=== PATIENT | female | born 1955 | race African-American/Black ===

== ENCOUNTER → 2016-07-10 | Outpatient (CLI) | payer MEDICAID | LOC: RAD 09:33 | PROVIDERS: ATTEND Podiatrist Foot & Ankle Surgery | DX: M25.871 Other specified joint disorders, right ankle and foot (principal) ==

== ENCOUNTER 2016-10-11 18:22 | Emergency (ER) | payer MEDICAID ==
[2016-10-11] MEDS ORDERED: LIDOCAINE 5% (700 MG) TRANSDERMAL ADH..PATCH TP ONE (18:40)
[2016-10-11 18:57] LABS: APPEARANCE,URINE CLEAR; BILIRUBIN,URINE NEGATIVE (NEGATIVE); GLUCOSE, URINE NEGATIVE (NEGATIVE); KETONES,URINE NEGATIVE (NEGATIVE); LEUKOCYTE ESTERASE,URINE NEGATIVE (NEGATIVE); NITRITE,URINE NEGATIVE (NEGATIVE); PROTEIN,URINE NEGATIVE (NEGATIVE); URINE SPECIFIC GRAVITY 1.008; UROBILINOGEN,URINE NEGATIVE mg/dL (<2.0)
[2016-10-11 19:27] VITALS: BP 152/93
--- NOTE | 2016-10-11 19:55 | ER Document Report ---
ED General - General Chief Complaint: Urinary Frequency Stated Complaint: URINARY ISSUE TRAVEL OUTSIDE OF THE [place] IN LAST 30 DAYS: No - HPI Patient complains to provider of: right elbow pain dysuria Notes: Patient coming in for evaluation of right elbow pain and dysuria. Patient states dysuria for last few days right elbow pain ongoing for greater than a month. Patient states no relief of either symptom with ibuprofen. Patient denies fevers chills nausea vomiting diarrhea. 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 - Related Data Allergies/Adverse Reactions: Penicillins Allergy (Mild, Verified 10/11/16 18:29) rash Past Medical History - Social History Smoking Status: Never Smoker Frequency of alcohol use: Occasional Drug Abuse: None Family History: Hypertension Patient has suicidal ideation: No Patient has homicidal ideation: No - Past Medical History Cardiac Medical History: Reports: Hx Hypertension - medicated Denies: Hx Heart Attack Pulmonary Medical History: Denies: Hx Asthma Neurological Medical History: Reports: Hx Migraine. Denies: Hx Seizures Renal/ Medical History: Denies: Hx Kidney Stones, Hx Peritoneal Dialysis GI Medical History: Denies: Hx Hiatal Hernia, Hx Ulcer Musculoskeltal Medical History: Reports Hx Musculoskeletal Deformity, Reports Hx Musculoskeletal Trauma Psychiatric Medical History: Reports: Hx Depression Past Surgical History: Reports: Hx Cholecystectomy, Hx Kidney (Renal Surgery) - Kidney stone removal with hernia repair at same time, Hx Orthopedic Surgery - Foot surgery to right great toe. Denies: Hx Hysterectomy, Hx Mastectomy, Hx Open Heart Surgery - Immunizations Hx Diphtheria, Pertussis, Tetanus Vaccination: No Review of Systems - Review of Systems Constitutional: No symptoms reported EENT: No symptoms reported Cardiovascular: No symptoms reported Respiratory: No symptoms reported Gastrointestinal: No symptoms reported Genitourinary: Dysuria Female Genitourinary: No symptoms reported Musculoskeletal: Other - Right elbow pain Skin: No symptoms reported Hematologic/Lymphatic: No symptoms reported Neurological/Psychological: No symptoms reported Physical Exam - Vital signs Vitals: Temp Pulse Resp BP Pulse Ox 97.5 F 73 20 150/88 H 98 10/11/16 18:26 10/11/16 18:26 10/11/16 18:26 10/11/16 18:26 10/11/16 18:26 Interpretation: Normal - General General appearance: Appears well, Alert - HEENT Head: Normocephalic, Atraumatic Eyes: Normal Pupils: PERRL - Respiratory Respiratory status: No respiratory distress Chest status: Nontender Breath sounds: Normal Chest palpation: Normal - Cardiovascular Rhythm: Regular Heart sounds: Normal auscultation Murmur: No - Abdominal Inspection: Normal Distension: No distension Bowel sounds: Normal Tenderness: Nontender Organomegaly: No organomegaly - Back Back: Normal, Nontender - Extremities General upper extremity: Normal inspection, Tender - There palpation of the lateral condyle consistent with lateral epicondylitis or tennis elbow, Normal color, Normal ROM, Normal temperature General lower extremity: Normal inspection, Nontender, Normal color, Normal ROM , Normal temperature, Normal weight bearing. No: Kvng's sign - Neurological Neuro grossly intact: Yes Cognition: Normal Orientation: AAOx4 Raquel Coma Scale Eye Opening: Spontaneous [place] Coma Scale Verbal: Oriented [place] Coma Scale Motor: Obeys Commands Raquel Coma Scale Total: 15 Speech: Normal Motor strength normal: LUE, RUE, LLE, RLE Sensory: Normal - Psychological Associated symptoms: Normal affect, Normal mood - Skin Skin Temperature: Warm Skin Moisture: Dry Skin Color: Normal Course - Re-evaluation Re-evalutation: 10/11/16 20:50 Patient examination is consistent with lateral epicondylitis or tennis elbow. Patient was educated about the use of ice massage antifungal medications. Patient's pain was treated with a Lidoderm patch. Patient's urinalysis does not show any signs of infection. Patient will be given Pyridium for her symptoms nearly will be sent for culture. Patient was encouraged follow-up primary care physician. - Vital Signs Vital signs: Temp Pulse Resp BP Pulse Ox 97.8 F 98 18 152/93 H 95 10/11/16 19:26 10/11/16 19:26 10/11/16 19:26 10/11/16 19:26 10/11/16 19:26 - Laboratory Laboratory results interpreted by me: 10/11/16 18:40 Urine Blood SMALL H Discharge - Discharge Clinical Impression: Urinary frequency, Tendinitis of right elbow Condition: Good Disposition: HOME, SELF-CARE Instructions: Tennis Elbow (Lateral Epicondylitis) ([facility]), Ice Massage ([facility]) Additional Instructions: Your urinalysis does not show any signs of infection today. We will see new urine for a culture the culture results will be available in the next 48 hours. Please make sure we have good content information so that we may call you if you may need an antibiotic but at this time there is no need for any antibiotics. Your elbow pain is consistent with tennis elbow or tendinitis in your elbow. Please continue to take Motrin and Tylenol for pain control you may use warm compresses and ice packs. Prescriptions: Phenazopyridine HCl [Pyridium 100 Mg Tablet] 100 mg PO TID #14 tablet Forms: Return to Work Referrals: ANNALEE MENDEZ MD [Primary Care Provider] - Follow up as needed
== END 2016-10-11 19:56 | disposition home or self-care (01) ==
LOC: ER 18:22
DX: R35.0 Frequency of micturition (principal); M77.9 Enthesopathy, unspecified; R39.198 Other difficulties with micturition; M25.521 Pain in right elbow; R30.0 Dysuria
CPT/HCPCS: 99283; 87086; 81001; J3490

== ENCOUNTER 2017-01-13 12:22 | Emergency (ER) | payer MEDICAID ==
--- NOTE | 2017-01-13 12:59 | ER Document Report ---
ED Medical Screen (RME) - General Chief Complaint: Pain With Urination Stated Complaint: VAGINAL PAIN Time Seen by Provider: 01/13/17 12:54 Mode of Arrival: Ambulatory Information source: Patient, ON LICENSE OF [facility] Records TRAVEL OUTSIDE OF THE [place] IN LAST 30 DAYS: No - HPI Patient complains to provider of: dysuria, urine frequency Onset: Yesterday Onset/Duration: Gradual, Constant Quality of pain: Burning Recently seen / treated by doctor: Yes Notes: 01/13/17 12:58 Patient is a 61-year-old female who has frequent urinary tract infections. Patient presents with several days of dysuria and urinary frequency. Denies fevers, chills, back pain. She has used [id number] Pyridium without improvement. Patient states she did not want to wait all day at her doctor's office so presents to the emergency department for evaluation. Patient is also requesting pain medication. - Related Data Allergies/Adverse Reactions: Penicillins Allergy (Mild, Verified 01/13/17 12:42) rash Past Medical History - General Information source: Patient, ON LICENSE OF [facility] Records - Social History Chew tobacco use (# tins/day): No Frequency of alcohol use: Occasional Drug Abuse: None - Past Medical History Cardiac Medical History: Reports: Hx Hypertension - medicated Denies: Hx Heart Attack Pulmonary Medical History: Denies: Hx Asthma Neurological Medical History: Reports: Hx Migraine. Denies: Hx Seizures Renal/ Medical History: Denies: Hx Kidney Stones, Hx Peritoneal Dialysis GI Medical History: Denies: Hx Hiatal Hernia, Hx Ulcer Musculoskeltal Medical History: Reports Hx Musculoskeletal Deformity, Reports Hx Musculoskeletal Trauma Psychiatric Medical History: Reports: Hx Depression Past Surgical History: Reports: Hx Cholecystectomy, Hx Kidney (Renal Surgery) - Kidney stone removal with hernia repair at same time, Hx Orthopedic Surgery - Foot surgery to right great toe. Denies: Hx Hysterectomy, Hx Mastectomy, Hx Open Heart Surgery - Immunizations Hx Diphtheria, Pertussis, Tetanus Vaccination: No Review of Systems - Review of Systems Genitourinary: Dysuria, Frequency -: Yes All other systems reviewed and negative Physical Exam - Vital signs Vitals: Temp Pulse Resp BP Pulse Ox 98 F 62 14 162/95 H 98 01/13/17 12:29 01/13/17 12:29 01/13/17 12:29 01/13/17 12:29 01/13/17 12:29 Interpretation: Normal - General General appearance: Appears well, Alert - HEENT Head: Normocephalic, Atraumatic Eyes: Normal Pupils: PERRL - Respiratory Respiratory status: No respiratory distress Chest status: Nontender Breath sounds: Normal Chest palpation: Normal - Cardiovascular Rhythm: Regular Heart sounds: Normal auscultation Murmur: No - Abdominal Inspection: Normal Distension: No distension Bowel sounds: Normal Tenderness: Nontender Organomegaly: No organomegaly - Back Back: Normal, Nontender - Extremities General upper extremity: Normal inspection, Nontender, Normal color, Normal ROM , Normal temperature General lower extremity: Normal inspection, Nontender, Normal color, Normal ROM , Normal temperature, Normal weight bearing. No: Kvng's sign - Neurological Neuro grossly intact: Yes Cognition: Normal Orientation: AAOx4 [place] Coma Scale Eye Opening: Spontaneous Raquel Coma Scale Verbal: Oriented Raquel Coma Scale Motor: Obeys Commands Raquel Coma Scale Total: 15 Speech: Normal Motor strength normal: LUE, RUE, LLE, RLE Sensory: Normal - Psychological Associated symptoms: Normal affect, Normal mood - Skin Skin Temperature: Warm Skin Moisture: Dry Skin Color: Normal Course - Re-evaluation Re-evalutation: 01/13/17 13:31 Urine is consistent with UTI. Nothing to indicate pyelonephritis. Will discharge with Bactrim pending urine culture results. - Vital Signs Vital signs: Temp Pulse Resp BP Pulse Ox 98 F 62 14 162/95 H 98 01/13/17 12:29 01/13/17 12:29 01/13/17 12:29 01/13/17 12:29 01/13/17 12:29 - Laboratory Laboratory results interpreted by me: 01/13/17 12:35 Urine Protein 100 H Urine Blood LARGE H Urine Nitrite POSITIVE H Urine Urobilinogen 4.0 H Ur Leukocyte Esterase SMALL H Doctor's Discharge - Discharge Clinical Impression: UTI (urinary tract infection) Condition: Good Disposition: HOME, SELF-CARE Instructions: Urinary Tract Infection ([facility]) Additional Instructions: Follow-up with your primary care doctor. Increase fluids. Return to the emergency department if worse or for any other problems. Prescriptions: Sulfamethoxazole/Trimethoprim [Bactrim Ds Tablet] 1 each PO BID #14 tablet Tramadol HCl 50 mg PO QID PRN #20 tablet PRN Reason: Mild Pain
[2017-01-13 13:22] LABS: APPEARANCE,URINE CLOUDY; BILIRUBIN,URINE NEGATIVE (NEGATIVE); GLUCOSE, URINE NEGATIVE (NEGATIVE); KETONES,URINE NEGATIVE (NEGATIVE); LEUKOCYTE ESTERASE,URINE SMALL (NEGATIVE); NITRITE,URINE POSITIVE (NEGATIVE); PROTEIN,URINE 100 mg/dL (NEGATIVE); URINE SPECIFIC GRAVITY 1.027
[2017-01-13] MEDS ORDERED: SULFAMETHOXAZOLE/TRIMETHOPRIM 800-160 MG TABLET PO ONE (13:23)
[2017-01-13 13:44] VITALS: BP 154/102
== END 2017-01-13 13:34 | disposition home or self-care (01) ==
LOC: ER 12:22
DX: N39.0 Urinary tract infection, site not specified (principal); R10.2 Pelvic and perineal pain; I10 Essential (primary) hypertension; Z90.49 Acquired absence of other specified parts of digestive tract; Z87.442 Personal history of urinary calculi; Z88.0 Allergy status to penicillin
CPT/HCPCS: 81001; 87086; 87088; 87186; 99283

== ENCOUNTER 2017-06-14 13:42 | Emergency (ER) | payer MEDICAID ==
[2017-06-14 13:56] VITALS: BP 157/99
--- NOTE | 2017-06-14 14:29 | ER Document Report ---
ED Medical Screen (RME) - General Chief Complaint: Flank Pain Stated Complaint: BACK PAIN Time Seen by Provider: 06/14/17 14:22 Mode of Arrival: Ambulatory Information source: Patient TRAVEL OUTSIDE OF THE [place] IN LAST 30 DAYS: No - HPI Patient complains to provider of: L flank pain Onset: Other - pt with c/o L flank pain since yesterday. Denies dysuria, frequency. States she has had kidney stones in the past. - Related Data Allergies/Adverse Reactions: Penicillins Allergy (Mild, Verified 06/14/17 13:43) rash Home Medications: Current Home Medications Cyclobenzaprine HCl [Flexeril 10 mg Tablet] 1 tab PO DAILY 06/14/17 [History] Gabapentin [Gabapentin] 1 cap PO TID 06/14/17 [History] Past Medical History - Social History Chew tobacco use (# tins/day): No Frequency of alcohol use: Rare Drug Abuse: None - Past Medical History Cardiac Medical History: Reports: Hx Hypertension - medicated Denies: Hx Heart Attack Pulmonary Medical History: Denies: Hx Asthma Neurological Medical History: Reports: Hx Migraine. Denies: Hx Seizures Renal/ Medical History: Denies: Hx Kidney Stones, Hx Peritoneal Dialysis GI Medical History: Denies: Hx Hiatal Hernia, Hx Ulcer Musculoskeltal Medical History: Reports Hx Musculoskeletal Deformity, Reports Hx Musculoskeletal Trauma Psychiatric Medical History: Reports: Hx Depression Past Surgical History: Reports: Hx Cholecystectomy, Hx Kidney (Renal Surgery) - Kidney stone removal with hernia repair at same time, Hx Orthopedic Surgery - Foot surgery to right great toe. Denies: Hx Hysterectomy, Hx Mastectomy, Hx Open Heart Surgery - Immunizations Hx Diphtheria, Pertussis, Tetanus Vaccination: No Physical Exam - Vital signs Vitals: Temp Pulse BP Pulse Ox 98.6 F 90 157/99 H 96 06/14/17 13:48 06/14/17 13:48 06/14/17 13:48 06/14/17 13:48 Course - Vital Signs Vital signs: Temp Pulse Resp BP Pulse Ox 98.6 F 90 157/99 H 96 06/14/17 13:48 06/14/17 13:48 06/14/17 13:48 06/14/17 13:48
[2017-06-14 14:55] LABS: APPEARANCE,URINE CLEAR; BILIRUBIN,URINE NEGATIVE (NEGATIVE); COLOR,URINE YELLOW; GLUCOSE, URINE NEGATIVE (NEGATIVE); KETONES,URINE NEGATIVE (NEGATIVE); LEUKOCYTE ESTERASE,URINE NEGATIVE (NEGATIVE); NITRITE,URINE NEGATIVE (NEGATIVE); PROTEIN,URINE NEGATIVE (NEGATIVE); URINE SPECIFIC GRAVITY 1.025; UROBILINOGEN,URINE NEGATIVE mg/dL (<2.0)
--- NOTE | 2017-06-14 15:13 | RADIOLOGY REPORT (SQ) ---
EXAM DESCRIPTION: CT LTD RENAL STONE PROTOCOL ON COMPLETED DATE/TIME: 06/14/2017 2:44 pm REASON FOR STUDY: L flank pain COMPARISON: 2012 TECHNIQUE: CT scan of the abdomen and pelvis performed without intravenous or oral contrast. Images reviewed with lung, soft tissue, and bone windows. Reconstructed coronal and sagittal MPR images revi ewed. All images stored on PACS. All CT scanners at this facility use dose modulation, iterative reconstruction, and/or weight based d osing when appropriate to reduce radiation dose to as low as reasonably achievable (ALARA). [facility]: Dose Right [facility]: CareDose [facility]: Dose Right [facility]: Teradose 4D [facility]: [employer] RADIATION DOSE: mGy. LIMITATIONS: None. FINDINGS: LOWER CHEST: No significant findings. No nodules or infiltrates. NON-CONTRASTED LIVER, SPLEEN, ADRENALS: Evaluation limited by lack of IV contrast. No identified sign ificant masses. PANCREAS: No masses. No peripancreatic inflammatory changes. GALLBLADDER: Surgically absent. RIGHT KIDNEY AND URETER: No suspicious masses. Assessment limited by lack of IV contrast. No signif icant calcifications. No hydronephrosis or hydroureter. LEFT KIDNEY AND URETER: At the site of this previous large hematoma in the left pararenal space there is now an apparent surgical clip or calcification associated with fatty low-density, certainly relat e disease to the resolved hematoma. Measures 2 by 4 cm. Previously by 10 cm. Hounsfield units curr ently suggest fat and there is no compression of the renal cortex. No significant calcifications. No hydronephrosis or hydroureter. AORTA AND RETROPERITONEUM: No aneurysm. No retroperitoneal masses or adenopathy. BOWEL AND PERITONEAL CAVITY: No obvious masses or inflammatory changes. No free fluid. APPENDIX: Normal. PELVIS, BLADDER, AND ABDOMINAL WALL:No abnormal masses. No free fluid. Bladder normal. BONES: No significant findings. OTHER: No other significant finding. IMPRESSION: No acute process Previous site of perinephric hemorrhage on the left is markedly smaller and now appears to be in caps ulated fat. There is a central calcifications/ surgical clip. No acute findings in the left kidney or collecting system. COMMENT: Quality ID # [id number]: Final reports with documentation of one or more dose reduction techniques (e.g., Automated exposure control, adjustment of the mA and/or kV according to patient size, use of iterative reconstruction technique) TECHNICAL DOCUMENTATION: JOB ID: [id number] [employer]- All Rights Reserved
[2017-06-14] MEDS ORDERED: TRAMADOL HCL 50 MG TABLET PO ONE (15:55)
== END 2017-06-14 16:00 | disposition home or self-care (01) ==
LOC: ER 13:42
DX: R10.9 Unspecified abdominal pain (principal); I10 Essential (primary) hypertension; Z90.49 Acquired absence of other specified parts of digestive tract; Z98.890 Other specified postprocedural states; Z87.442 Personal history of urinary calculi; Z88.0 Allergy status to penicillin
CPT/HCPCS: 76380; 81001; 99284

== ENCOUNTER 2017-06-26 10:43 | Emergency (ER) | payer MEDICAID ==
[2017-06-26] MEDS ORDERED: BENZONATATE 100 MG CAPSULE PO ONE (11:17)
[2017-06-26] MEDS ORDERED: KETOROLAC TROMETHAMINE 60 MG/2 ML SDV IM ONE (11:17)
[2017-06-26] MEDS ORDERED: ALBUTEROL SULFATE 0.083% NEB 2.5 MG/3 ML AMPUL NEB ONE (11:17)
--- NOTE | 2017-06-26 11:33 | ER Document Report ---
ED General - General Mode of Arrival: Ambulatory Information source: Patient TRAVEL OUTSIDE OF THE [place] IN LAST 30 DAYS: No - General Chief Complaint: Headache Stated Complaint: HEADACHE,COUGH Time Seen by Provider: 06/26/17 11:11 Notes: Patient is a 61 year old female presenting to the emergency department complaining of a productive cough with yellow sputum onset 3 days ago. Patient states that she also has chest pain when she coughs and attempts to swallow food or drink. Patient states that she had diarrhea 5 days ago but it has since cleared up. Patient denies any fevers. Patient states she took OTC medications but it did not help her symptoms. (CHEYANNE MORENO) - Related Data Allergies/Adverse Reactions: Penicillins Allergy (Mild, Verified 06/26/17 10:44) rash Past Medical History - General Information source: Patient - Social History Smoking Status: Former Smoker Frequency of alcohol use: None Drug Abuse: None Family History: Hypertension Patient has suicidal ideation: No Patient has homicidal ideation: No - Past Medical History Cardiac Medical History: Reports: Hx Hypertension - medicated Neurological Medical History: Reports: Hx Migraine Musculoskeltal Medical History: Reports Hx Musculoskeletal Deformity, Reports Hx Musculoskeletal Trauma Psychiatric Medical History: Reports: Hx Depression Past Surgical History: Reports: Hx Cholecystectomy, Hx Kidney (Renal Surgery) - Kidney stone removal with hernia repair at same time, Hx Orthopedic Surgery - Foot surgery to right great toe - Immunizations Hx Diphtheria, Pertussis, Tetanus Vaccination: No Review of Systems - Review of Systems Constitutional: No symptoms reported EENT: No symptoms reported Cardiovascular: See HPI, Chest pain Respiratory: See HPI, Cough Gastrointestinal: See HPI, Diarrhea Genitourinary: No symptoms reported Female Genitourinary: No symptoms reported Musculoskeletal: No symptoms reported Skin: No symptoms reported Hematologic/Lymphatic: No symptoms reported Neurological/Psychological: No symptoms reported -: Yes All other systems reviewed and negative Physical Exam - Vital signs Vitals: Temp Pulse Resp BP Pulse Ox 97.8 F 67 18 154/101 H 96 06/26/17 10:50 06/26/17 10:50 06/26/17 10:50 06/26/17 10:50 06/26/17 10:50 - Notes Notes: GENERAL: Alert, interacts well. No acute distress. HEAD: Normocephalic, atraumatic. EYES: Pupils equal, round, and reactive to light. Extraocular movements intact. ENT: Oral mucosa moist, tongue midline. Post nasal drip. TMs injected. NECK: Full range of motion. Supple. Trachea midline. LUNGS: Clear to auscultation bilaterally, no wheezes, rales, or rhonchi. No respiratory distress. Dry cough. HEART: Regular rate and rhythm. No murmurs, gallops, or rubs. ABDOMEN: Soft, non-tender. Non-distended. Bowel sounds present in all 4 quadrants. EXTREMITIES: Moves all 4 extremities spontaneously. No edema, radial and dorsalis pedis pulses 2/4 bilaterally. No cyanosis. NEUROLOGICAL: Alert and oriented x3. Normal speech. PSYCH: Normal affect, normal mood. SKIN: Warm, dry, normal turgor. No rashes or lesions noted. (CHEYANNE MORENO) Course - Re-evaluation Re-evalutation: 06/26/17 12:08 Chest x-ray shows no signs of pneumonia, patient has not had fever, does not have structural lung disease, no indication for antibiotics. We will focus on symptomatic treatment using albuterol inhaler, Tessalon Perles for cough suppression and decongestants such as Coricidin HBP. Discharged home. (MUKESH KOENIG) - Vital Signs Vital signs: Temp Pulse Resp BP Pulse Ox 97.8 F 67 18 154/101 H 96 06/26/17 10:50 06/26/17 10:50 06/26/17 10:50 06/26/17 10:50 06/26/17 10:50 Discharge - Discharge Clinical Impression: Acute bronchitis, viral, Hypertension Condition: Stable Disposition: HOME, SELF-CARE Additional Instructions: Bronchitis with Bronchospasm (Wheezing) You have bronchitis with bronchospasm (wheezing). Sometimes people develop wheezing with a chest cold. This occurs either because of an underlying tendency toward asthma or because the virus itself irritates the bronchial tubes. This irritation causes cough, shortness of breath, and wheezing. Emergency treatment of bronchospasm may include adrenaline shots or bronchodilator aerosol. You may feel lightheaded and have a rapid pulse for an hour or two. Rest and get plenty of fluids. At home, we'll treat you with a bronchodilator inhaler. Until you recover, avoid chemical fumes, dusts, pollens, and exercising in very cold or dry air. If you smoke, stop now! Most cases of bronchitis get better without antibiotics. Increase your fluid intake. A cool mist humidifier may make your lungs more comfortable. An expectorant (cough medicine that loosens phlegm) can help. An example of this is guaifenesin also known as Mucinex, you may curing pickling packer [id number]. He will also feel quite a bit better if you start using a decongestant, since you have high blood pressure Coricidin HBP is your best option. I have given you a cough suppressant called the Tessalon Perles. Repeated episodes of bronchitis and bronchospasm may result in lung damage -- for example, chronic bronchitis, recurrent pneumonias, or emphysema. If you develop a fever, increased wheezing, chest pain, or severe shortness of breath, you should contact the doctor immediately. Prescriptions: Benzonatate [Tessalon Perles 100 mg Capsule] 100 mg PO Q8HP PRN #40 capsule PRN Reason: Albuterol Sulfate [Proair HFA] 1 - 2 puff IH Q4 PRN #1 inhaler PRN Reason: Forms: Return to Work, Elevated Blood Pressure Referrals: MAURICIO LEWIS MD [COMMUNITY BASED STAFF] - Follow up in 3-5 days Scribe Attestation: 06/26/17 12:11 I personally performed the services described in the documentation, reviewed and edited the documentation which was dictated to the scribe in my presence, and it accurately records my words and actions. (MUKESH KOENIG) Scribe Documentation - Scribe Written by Neva:: Neva Bolaños, 06/26/2017 11:37 acting as scribe for :: Wilfrido
--- NOTE | 2017-06-26 11:45 | RADIOLOGY REPORT (SQ) ---
EXAM DESCRIPTION: CHEST PA/LAT COMPLETED DATE/TIME: 06/26/2017 11:25 am REASON FOR STUDY: cough, SOB COMPARISON: Two-view chest 04/03/2013 EXAM PARAMETERS: NUMBER OF VIEWS: two views TECHNIQUE: Digital Frontal and Lateral radiographic views of the chest acquired. RADIATION DOSE: NA LIMITATIONS: none FINDINGS: LUNGS AND PLEURA: No opacities, masses or pneumothorax. No pleural effusion. MEDIASTINUM AND HILAR STRUCTURES: No masses or contour abnormalities. HEART AND VASCULAR STRUCTURES: Heart normal size. No evidence for failure. BONES: No acute findings. HARDWARE: Multiple surgical clips in the upper abdomen. Lower cervical fusion plate OTHER: No other significant finding. IMPRESSION: NO SIGNIFICANT RADIOGRAPHIC FINDING IN THE CHEST. TECHNICAL DOCUMENTATION: JOB ID: [id number] [employer]- All Rights Reserved
[2017-06-26 12:29] VITALS: BP 168/88
== END 2017-06-26 12:25 | disposition home or self-care (01) ==
LOC: ER 10:43
DX: J20.9 Acute bronchitis, unspecified (principal); I10 Essential (primary) hypertension; R05 Cough; R07.89 Other chest pain; Z88.0 Allergy status to penicillin; Z87.891 Personal history of nicotine dependence
CPT/HCPCS: 94640; 99283; 96372; 71020; J3490; J1885

== ENCOUNTER 2017-07-02 11:34 | Emergency (ER) | payer MEDICAID ==
[2017-07-02] MEDS ORDERED: ACETAMINOPHEN 325 MG TABLET PO ONE (12:36)
--- NOTE | 2017-07-02 13:10 | ER Document Report ---
ED Extremity Problem, Lower - General Chief Complaint: Foot Pain Stated Complaint: FOOT PAIN Time Seen by Provider: 07/02/17 12:23 Mode of Arrival: Wheelchair Information source: Patient Notes: 61-year-old female presents to ED for complaint of pain to the left foot. She states she hit her toe on the bed 2 days ago. States she has some swelling and bruising to the foot in front of the fourth and fifth toe TRAVEL OUTSIDE OF THE [place] IN LAST 30 DAYS: No - HPI Patient complains to provider of: Injury, Pain, Swelling Location: 4th Toe, 5th Toe Occurred: Other - 2 days ago Where: Home, Indoors Onset/Duration: Gradual, Persistent Quality of pain: Achy, Throbbing Severity: Severe Pain Level: 5 Context: Other - Ran into the bed with her foot Recent injury: Yes Associated symptoms: Painful ambulation Exacerbated by: Movement, Walking Relieved by: Nothing - Related Data Allergies/Adverse Reactions: Penicillins Allergy (Mild, Verified 07/02/17 11:37) rash Past Medical History - General Information source: Patient - Social History Smoking Status: Former Smoker Cigarette use (# per day): No Chew tobacco use (# tins/day): No Smoking Education Provided: No Frequency of alcohol use: Rare Drug Abuse: None Lives with: Family - Daughter Family History: Arthritis - Rheumatoid arthritis, CAD, CVA, Hyperlipidemia, Hypertension, Other - Reynard's. denies: COPD, DM, Malignancy, Thyroid Disfunction Patient has suicidal ideation: No Patient has homicidal ideation: No - Past Medical History Cardiac Medical History: Reports: Hx Hypercholesterolemia, Hx Hypertension - medicated Neurological Medical History: Reports: Hx Migraine. Denies: Hx Seizures Renal/ Medical History: Denies: Hx Kidney Stones, Hx Peritoneal Dialysis GI Medical History: Denies: Hx Hiatal Hernia, Hx Ulcer Musculoskeltal Medical History: Reports Hx Musculoskeletal Deformity, Reports Hx Musculoskeletal Trauma Psychiatric Medical History: Reports: Hx Depression Past Surgical History: Reports: Hx Cholecystectomy, Hx Kidney (Renal Surgery) - Kidney stone removal with hernia repair at same time, Hx Orthopedic Surgery - Foot surgery to right great toe. Denies: Hx Hysterectomy, Hx Mastectomy, Hx Open Heart Surgery - Immunizations Hx Diphtheria, Pertussis, Tetanus Vaccination: No Review of Systems - Review of Systems Constitutional: No symptoms reported EENT: No symptoms reported Cardiovascular: No symptoms reported Respiratory: No symptoms reported Gastrointestinal: No symptoms reported Genitourinary: No symptoms reported Female Genitourinary: No symptoms reported Musculoskeletal: Other - Left fourth toe pain with bruising around the fourth and fifth toe. Skin: No symptoms reported Hematologic/Lymphatic: No symptoms reported Neurological/Psychological: No symptoms reported -: Yes All other systems reviewed and negative Physical Exam - Vital signs Vitals: Temp Pulse Resp BP Pulse Ox 98.6 F 60 16 163/95 H 97 07/02/17 11:40 07/02/17 11:40 07/02/17 11:40 07/02/17 11:40 07/02/17 11:40 Interpretation: Normal - General General appearance: Appears well, Alert - HEENT Head: Normocephalic, Atraumatic Eyes: Normal Pupils: PERRL - Respiratory Respiratory status: No respiratory distress Chest status: Nontender Breath sounds: Normal Chest palpation: Normal - Cardiovascular Rhythm: Regular Heart sounds: Normal auscultation Murmur: No - Abdominal Inspection: Normal Distension: No distension Bowel sounds: Normal Tenderness: Nontender Organomegaly: No organomegaly - Back Back: Normal, Nontender - Extremities General upper extremity: Normal inspection, Nontender, Normal color, Normal ROM , Normal temperature General lower extremity: Normal inspection, Nontender, Normal color, Normal ROM , Normal temperature, Normal weight bearing. No: Kvng's sign Hip: Normal, Nontender Thigh: Normal, Nontender Knee: Normal, Nontender Calf: Normal, Nontender Ankle: Normal, Nontender Foot: Tender, Ecchymosis, No evidence of FB, Other - Pain to the fourth proximal phalanges to the left foot with bruising around the fourth and fifth toe - Neurological Neuro grossly intact: Yes Cognition: Normal Orientation: AAOx4 Raquel Coma Scale Eye Opening: Spontaneous Raquel Coma Scale Verbal: Oriented [place] Coma Scale Motor: Obeys Commands Raquel Coma Scale Total: 15 Speech: Normal Motor strength normal: LUE, RUE, LLE, RLE Sensory: Normal - Psychological Associated symptoms: Normal affect, Normal mood - Skin Skin Temperature: Warm Skin Moisture: Dry Skin Color: Normal Course - Re-evaluation Re-evalutation: 07/02/17 15:41 x-ray discussed with patient and the patient placed in a postop shoe and given instructions on elevation and ice of her foot and to follow-up with orthopedics. - Vital Signs Vital signs: Temp Pulse Resp BP Pulse Ox 97.8 F 59 L 18 171/96 H 100 07/02/17 13:51 07/02/17 13:51 07/02/17 13:51 07/02/17 13:51 07/02/17 13:51 - Diagnostic Test Radiology reviewed: Image reviewed, Reports reviewed Procedures - Immobilization Left Foot Time completed: 14:25 Immobilizer type: Crutches, Post-op shoe Performed by: PCT Post-Proc Neuro Vasc Exam: Normal Alignment checked and good: Yes Discharge - Discharge Clinical Impression: left 4th toe proximal phalanx fracture Condition: Stable Disposition: HOME, SELF-CARE Additional Instructions: Fractured Toe You have fractured your toe. Although this fracture doesn't need a cast or splint, emergency evaluation was needed to assess the straightness of the bones and joints. Reduction ("setting") is necessary for toe fractures which are crooked or twisted. A toe fracture will heal in about three weeks. Usually, the fractured toe is taped to the next toe. The second toe acts as a moving splint to protect the broken one. Ice and elevation help during the first 48 hours. You may need crutches at first if walking is painful. When you begin walking, be careful NOT to do things that hurt. If weight bearing is not comfortable within a few days, you may require a special shoe, walking boot, or cast. Call the doctor or return at once if severe swelling, severe pain, or numbness develop in the toe, or if you suspect you may have re-injured it. Post-Op Shoe You are to use a "post-op shoe," sometimes also called a "bunnion shoe." This shoe helps protect minor fractures, sprains, and other injuries of the toes or foot. You may remove the shoe for bathing. Walk carefully. If you're feeling pain, put less weight on the foot, take smaller steps, or use a cane. If you have a new injury, you may need to use crutches for the first couple of days. If pain still prevents walking after a few days, contact the doctor. If there's unexpected pain in your foot, if blisters or sore spots develop , or if the shoe is physically coming apart, return at once. Remember that you' re welcome to come in at any time to have the fit of the shoe checked and adjusted. USE OF CRUTCHES: The doctor has recommended that you not bear weight at this time. You will need to use crutches. Adjust the crutches so the tops come to about two inches under the armpit while you are standing upright. Use your hands -- not your armpits -- to support your weight. To get into a chair, support yourself with one crutch on the injured side. Hold the chair with the other hand, then lower yourself while putting all your weight on the good leg. Going up stairs is `good leg up, step up, then bring up crutches and bad leg.' Down stairs is `bad leg and crutches down, then bring good leg down.' If you develop numbness or swelling in an arm or hand, you are using the crutches incorrectly. Return if you are having any problems with the crutches. ICE & ELEVATION: Apply ice packs frequently against the painful area. Many different schedules are recommended, such as "20 minutes on, 20 minutes off" or "one hour ice, two hours rest." If you need to work, you may need to go longer between ice treatments. You should plan to have the area ice packed AT LEAST one- fourth of the time. The ice should be applied over the wrap, tape, or splint, or over a layer of cloth -- not directly against the skin. Some ice bags have a built-in cloth and can be put directly on the skin. Your injured part should be elevated as much as possible over the next 48 hours. Try to keep the injury above the level of the heart. Avoid use of the injured area. Elevation and rest will decrease the swelling. USE OF FAYH-FPR-IRHKZFX IBUPROFEN: Ibuprofen (Advil, Nuprin, Medipren, Motrin IB) is a medication for fever and pain control. In addition, it has anti- inflammatory effects which may be beneficial, especially in the treatment of injuries. It's best to take ibuprofen with food. Persons with ulcer disease or allergy to aspirin should notify their physician of this before taking ibuprofen. Ibuprofen can be given every four to six hours, for a total of four doses daily. Age Pain or fever dose Antiinflammatory dose 6-8 yr 200 mg (1 tab) 200 mg (1 tab) 9-11 yr 200 mg (1 tab) 200-400 mg (1-2 tab) 11-14 yr 200-400 mg (1-2 tab) 400 mg (2 tab) 15-adult 400 mg (2 tab) 600 mg (3 tab) ORAL NARCOTIC MEDICATION: You have been given a Alpine dispense back for pain control. This medication is a narcotic. It's best taken with food, as nausea can result if taken on an empty stomach. Don't operate machinery or drive within six hours of taking this medication. Do not combine this medicine with alcohol, or with any medication which can cause sedation (such as cold tablets or sleeping pills) unless you get permission from the physician. Narcotics tend to cause constipation. If possible, drink plenty of fluids and eat a diet high in fiber and fruits. Please be aware that prescription narcotics also have the potential for abuse. People become addicted to these medications because of the general sense of wellbeing that they induce. This feeling along with a significant reduction in tension, anxiety, and aggression provides a stimulating seductive quality to these drugs. Once your pain is under control, we encourage you to discard your unused narcotics. FOLLOW-UP CARE: If you have been referred to a physician for follow-up care, call the physician s office for an appointment as you were instructed or within the next two days. If you experience worsening or a significant change in your symptoms, notify the physician immediately or return to the Emergency Department at any time for re-evaluation. Forms: Elevated Blood Pressure Referrals: ANNALEE MENDEZ MD [Primary Care Provider] - Follow up as needed ONI SILVERIO MD [ACTIVE STAFF] - Follow up as needed
--- NOTE | 2017-07-02 13:27 | RADIOLOGY REPORT (SQ) ---
EXAM DESCRIPTION: FOOT LEFT COMPLETE COMPLETED DATE/TIME: 07/02/2017 12:59 pm REASON FOR STUDY: pain and injury COMPARISON: None. NUMBER OF VIEWS: Three views. TECHNIQUE: AP, lateral and oblique radiographic images acquired of the left foot. LIMITATIONS: None. FINDINGS: MINERALIZATION: Normal. BONES: There is an oblique fracture involving the proximal phalanx of the 4th digit. No other eviden ce for fracture is seen JOINTS: Patient is status post joint replacement the level of the 1st MTP joint. SOFT TISSUES: No soft tissue swelling. No foreign body. OTHER: No other significant finding. IMPRESSION: Oblique fracture involving the proximal phalanx of the 4th digit. No other evidence for fracture is seen. Other findings as noted above TECHNICAL DOCUMENTATION: JOB ID: [id number] [employer]- All Rights Reserved
[2017-07-02] MEDS ORDERED: HYDROCODONE/ACETAMINOPHEN 5-325 MG (6 TAB/ER DISP) PO PRN (13:36)
[2017-07-02 13:51] VITALS: BP 171/96
== END 2017-07-02 14:23 | disposition home or self-care (01) ==
LOC: ER 11:34
DX: S92.512A Displaced fracture of proximal phalanx of left lesser toe(s), initial encounter for closed fracture (principal); S90.32XA Contusion of left foot, initial encounter; M79.672 Pain in left foot; M79.89 Other specified soft tissue disorders; W22.03XA Walked into furniture, initial encounter; Z87.891 Personal history of nicotine dependence
CPT/HCPCS: 99283; 73630; J3490

== ENCOUNTER 2017-09-08 13:03 | Emergency (ER) | payer MEDICAID ==
[2017-09-08] MEDS ORDERED: ACETAMINOPHEN 325 MG TABLET PO ONE (13:50)
--- NOTE | 2017-09-08 13:52 | ER Document Report ---
ED Medical Screen (RME) - General Chief Complaint: Flank Pain Stated Complaint: BACK PAIN Time Seen by Provider: 09/08/17 13:44 Notes: RME DISCLOSURE I have seen this patient as part of a Rapid Medical Evaluation and, if applicable, placed any initially appropriate orders. The patient will be seen and fully evaluated, including a full history and physical exam, by a provider ( in Main ED or Fast Track) when a room becomes available. 61-year-old female here with complaints of right flank pain radiating to the front that started yesterday. She has also had some urinary frequency. She has tried taking ibuprofen for the pain. She states this feels like a possible kidney stone that she had several months ago. Per chart review, a CT scan June 2017 showed perinephric hemorrhage. EXAM No right-sided CVA tenderness No right lower quadrant tenderness TRAVEL OUTSIDE OF THE [place] IN LAST 30 DAYS: No - Related Data Allergies/Adverse Reactions: Penicillins Allergy (Mild, Verified 07/02/17 11:37) rash Past Medical History - Social History Chew tobacco use (# tins/day): No Drug Abuse: None - Past Medical History Cardiac Medical History: Reports: Hx Hypercholesterolemia, Hx Hypertension - medicated Neurological Medical History: Reports: Hx Migraine. Denies: Hx Seizures Renal/ Medical History: Reports: Hx Kidney Stones. Denies: Hx Peritoneal Dialysis GI Medical History: Denies: Hx Hiatal Hernia, Hx Ulcer Musculoskeltal Medical History: Reports Hx Musculoskeletal Deformity, Reports Hx Musculoskeletal Trauma Psychiatric Medical History: Reports: Hx Depression Past Surgical History: Reports: Hx Cholecystectomy, Hx Kidney (Renal Surgery) - Kidney stone removal with hernia repair at same time, Hx Orthopedic Surgery - Foot surgery to right great toe. Denies: Hx Hysterectomy, Hx Mastectomy, Hx Open Heart Surgery - Immunizations Hx Diphtheria, Pertussis, Tetanus Vaccination: No Physical Exam - Vital signs Vitals: Temp Pulse Resp BP Pulse Ox 98.2 F 68 18 149/104 H 94 09/08/17 13:09 09/08/17 13:09 09/08/17 13:09 09/08/17 13:09 09/08/17 13:09 Course - Vital Signs Vital signs: Temp Pulse Resp BP Pulse Ox 98.2 F 68 18 149/104 H 94 09/08/17 13:09 09/08/17 13:09 09/08/17 13:09 09/08/17 13:09 09/08/17 13:09
[2017-09-08 14:31] LABS: HEMATOCRIT 41.8 % (36.0-47.0); HEMOGLOBIN 14.3 g/dL (12.0-15.5); MEAN CORPUSCULAR HEMOGLOBIN 27.1 pg (27.0-33.4); MEAN CORPUSCULAR HGB CONC 34.3 g/dL (32.0-36.0); MEAN CORPUSCULAR VOLUME 79 fl (80-97); RED BLOOD COUNT 5.29 10^6/uL (3.72-5.28); RED CELL DISTRIBUTION WIDTH 15.7 % (11.5-14.0); WHITE BLOOD COUNT 5.5 10^3/uL (4.0-10.5)
[2017-09-08 14:37] LABS: AMORPHOUS SEDIMENT,URINE TRACE /HPF; APPEARANCE,URINE SLIGHTLY-CLOUDY; BILIRUBIN,URINE NEGATIVE (NEGATIVE); COLOR,URINE YELLOW; GLUCOSE, URINE NEGATIVE (NEGATIVE); KETONES,URINE NEGATIVE (NEGATIVE); LEUKOCYTE ESTERASE,URINE NEGATIVE (NEGATIVE); NITRITE,URINE NEGATIVE (NEGATIVE); PROTEIN,URINE NEGATIVE (NEGATIVE); UROBILINOGEN,URINE NEGATIVE mg/dL (<2.0)
--- NOTE | 2017-09-08 14:39 | RADIOLOGY REPORT (SQ) ---
EXAM DESCRIPTION: CT LTD RENAL STONE PROTOCOL ON COMPLETED DATE/TIME: 09/08/2017 2:28 pm REASON FOR STUDY: R flank pain; hx of renal hemorrhage; eval stone COMPARISON: 06/14/2017 TECHNIQUE: CT scan of the abdomen and pelvis performed without intravenous or oral contrast. Images reviewed with lung, soft tissue, and bone windows. Reconstructed coronal and sagittal MPR images revi ewed. All images stored on PACS. All CT scanners at this facility use dose modulation, iterative reconstruction, and/or weight based d osing when appropriate to reduce radiation dose to as low as reasonably achievable (ALARA). [facility]: Dose Right [facility]: CareDose [facility]: Dose Right [facility]: Teradose 4D [facility]: Experenti RADIATION DOSE: mGy. LIMITATIONS: None. FINDINGS: LOWER CHEST: No significant findings. No nodules or infiltrates. NON-CONTRASTED LIVER, SPLEEN, ADRENALS: Evaluation limited by lack of IV contrast. No identified sign ificant masses. PANCREAS: No masses. No peripancreatic inflammatory changes. GALLBLADDER: Surgically absent. RIGHT KIDNEY AND URETER: No suspicious masses. Assessment limited by lack of IV contrast. No signif icant calcifications. No hydronephrosis or hydroureter. LEFT KIDNEY AND URETER: Encapsulated fat adjacent to surgical clip, unchanged. No suspicious masses. Assessment limited by lack of IV contrast. No significant calcifications. No hydronephrosis or h ydroureter. AORTA AND RETROPERITONEUM: No aneurysm. No retroperitoneal masses or adenopathy. BOWEL AND PERITONEAL CAVITY: No obvious masses or inflammatory changes. No free fluid. APPENDIX: Normal. PELVIS, BLADDER, AND ABDOMINAL WALL:Prior anterior abdominal wall hernia repair. Normal urinary blad richa. BONES: No significant findings. OTHER: No other significant finding. IMPRESSION: No acute findings. No significant change. COMMENT: Quality ID # [id number]: Final reports with documentation of one or more dose reduction techniques (e.g., Automated exposure control, adjustment of the mA and/or kV according to patient size, use of iterative reconstruction technique) TECHNICAL DOCUMENTATION: JOB ID: [id number] [employer]- All Rights Reserved Reading location - IP/workstation name: [email or web address]
[2017-09-08 14:44] LABS: ANION GAP 12 (5-19); BLOOD UREA NITROGEN 12 mg/dL (7-20); CALCIUM 9.5 mg/dL (8.4-10.2); CARBON DIOXIDE 25 mmol/L (22-30); CHLORIDE 104 mmol/L (98-107); GLUCOSE 81 mg/dL (75-110); POTASSIUM 3.9 mmol/L (3.6-5.0)
[2017-09-08 14:53] LABS: PLATELET COUNT 198 10^3/uL (150-450)
[2017-09-08 14:57] LABS: ABSOLUTE LYMPHOCYTES# (MANUAL) 3.1 10^3/uL (0.5-4.7); ABSOLUTE MONOCYTES # (MANUAL) 0.2 10^3/uL (0.1-1.4); ABSOLUTE NEUTROPHILS# (MANUAL) 2.1 10^3/uL (1.7-8.2); ANISOCYTOSIS SLIGHT; BASOPHILS % (MANUAL) 0 % (0-2); EOSINOPHILS % (MANUAL) 0 % (0-6); HYPOCHROMASIA SLIGHT; LYMPHOCYTES % (MANUAL) 56 % (13-45); MONOCYTES % (MANUAL) 4 % (3-13); PLATELET CLUMPS PRESENT; PLATELET LARGE PRESENT; POLYCHROMASIA SLIGHT; SEGMENTED NEUTROPHILS % (MAN) 39 % (42-78); TOTAL CELLS COUNTED 100; TOXIC GRANULATION SLIGHT; TOXIC VACUOLATION PRESENT
[2017-09-08] MEDS ORDERED: METHOCARBAMOL 500 MG TABLET PO ONE (15:23)
--- NOTE | 2017-09-08 15:23 | ER Document Report ---
ED GI/ - General Chief Complaint: Flank Pain Stated Complaint: BACK PAIN Time Seen by Provider: 09/08/17 13:44 Mode of Arrival: Ambulatory Information source: Patient Notes: Patient is a 61-year-old female with a history of kidney stones who presents to the ER today for right lower back pain radiating around to the right lower quadrant of the abdomen since yesterday. Patient states that it feels like her kidney stones in the past. She denies any dysuria, hematuria, fever, chills, difficulty urinating. She denies any injury. She denies numbness, tingling, loss of bladder or bowel function. TRAVEL OUTSIDE OF THE [place] IN LAST 30 DAYS: No - Related Data Allergies/Adverse Reactions: Penicillins Allergy (Mild, Verified 07/02/17 11:37) rash Past Medical History - General Information source: Patient - Social History Smoking Status: Never Smoker Chew tobacco use (# tins/day): No Drug Abuse: None Family History: Arthritis - Rheumatoid arthritis, CAD, CVA, Hyperlipidemia, Hypertension, Other - Reynard's. denies: COPD, DM, Malignancy, Thyroid Disfunction Patient has suicidal ideation: No Patient has homicidal ideation: No - Past Medical History Cardiac Medical History: Reports: Hx Hypercholesterolemia, Hx Hypertension - medicated Neurological Medical History: Reports: Hx Migraine. Denies: Hx Seizures Renal/ Medical History: Reports: Hx Kidney Stones. Denies: Hx Peritoneal Dialysis GI Medical History: Denies: Hx Hiatal Hernia, Hx Ulcer Musculoskeltal Medical History: Reports Hx Musculoskeletal Deformity, Reports Hx Musculoskeletal Trauma Psychiatric Medical History: Reports: Hx Depression Past Surgical History: Reports: Hx Cholecystectomy, Hx Kidney (Renal Surgery) - Kidney stone removal with hernia repair at same time, Hx Orthopedic Surgery - Foot surgery to right great toe. Denies: Hx Hysterectomy, Hx Mastectomy, Hx Open Heart Surgery - Immunizations Hx Diphtheria, Pertussis, Tetanus Vaccination: No Review of Systems - Review of Systems Constitutional: No symptoms reported EENT: No symptoms reported Cardiovascular: No symptoms reported Respiratory: No symptoms reported Gastrointestinal: No symptoms reported Genitourinary: See HPI Female Genitourinary: No symptoms reported Musculoskeletal: See HPI Skin: No symptoms reported Hematologic/Lymphatic: No symptoms reported Neurological/Psychological: No symptoms reported Physical Exam - Vital signs Vitals: Temp Pulse Resp BP Pulse Ox 98.2 F 68 18 149/104 H 94 03/06/18 13:09 09/08/17 13:09 09/08/17 13:09 09/08/17 13:09 09/08/17 13:09 - Notes Notes: PHYSICAL EXAMINATION: GENERAL: In no acute distress. HEAD: Atraumatic, normocephalic. EYES: Pupils equal round and reactive to light, extraocular movements intact, sclera anicteric, conjunctiva are normal. NECK: Normal range of motion, supple without lymphadenopathy LUNGS: CTAB and equal. No wheezes rales or rhonchi. HEART: Regular rate and rhythm without murmurs ABDOMEN: Soft, no tenderness. No guarding, no rebound BACK: no vertebral tenderness, normal ROM GI/: no CVA tenderness EXTREMITIES: Normal range of motion, no pitting edema. No cyanosis. NEUROLOGICAL: Cranial nerves grossly intact. Normal sensory/motor exams. PSYCH: Normal mood, normal affect. SKIN: Warm, Dry, normal turgor, no rashes or lesions noted Course - Re-evaluation Re-evalutation: 09/08/17 16:46 Lab work is unremarkable today including a completely normal urinalysis, CAT scan was ordered in triage negative for any kidney stones or acute pathology. Patient is relieved by this and then goes on to just asked for crackers and soda because she "has not eaten all day and is starving." Patient is very pleased with results and does not seem to be in any pain. She was completely nontender to palpation anywhere and asks for nothing else. - Vital Signs Vital signs: Temp Pulse Resp BP Pulse Ox 98.1 F 71 18 147/99 H 95 09/08/17 15:41 09/08/17 15:41 09/08/17 15:41 09/08/17 15:41 09/08/17 15:41 - Laboratory Result Diagrams: 09/08/17 14:15 09/08/17 14:15 Laboratory results interpreted by me: 09/08/17 14:15 RBC 5.29 H MCV 79 L RDW 15.7 H Seg Neuts % (Manual) 39 L Lymphocytes % (Manual) 56 H Discharge - Discharge Clinical Impression: Right flank pain Condition: Stable Disposition: HOME, SELF-CARE Additional Instructions: Return immediately for any new or worsening symptoms. Follow up with primary care provider, call tomorrow to make followup appointment. Prescriptions: Methocarbamol [Robaxin 500 mg Tablet] 1,000 mg PO BID PRN #40 tablet PRN Reason: Referrals: ANNALEE MENDEZ MD [Primary Care Provider] - Follow up as needed
[2017-09-08 15:43] VITALS: BP 147/99
== END 2017-09-08 15:43 | disposition home or self-care (01) ==
LOC: ER 13:03
DX: R10.9 Unspecified abdominal pain (principal); E78.00 Pure hypercholesterolemia, unspecified; I10 Essential (primary) hypertension; Z88.0 Allergy status to penicillin; Z87.442 Personal history of urinary calculi; Z90.49 Acquired absence of other specified parts of digestive tract
CPT/HCPCS: 99284; 36415; 85025; 80048; 81001; 76380; J3490 ×2

== ENCOUNTER → 2017-09-22 | Outpatient (CLI) | payer MEDICAID ==
--- NOTE | 2017-09-22 14:25 | RADIOLOGY REPORT (SQ) ---
EXAM DESCRIPTION: U/S RETROPERITON (RENAL/AORTA) COMPLETED DATE/TIME: 09/22/2017 1:46 pm REASON FOR STUDY: N28.89 OTHER SPECIFIED DISORDERS OF KIDNEY AND URETER N28.89 OTHER SPECIFIED DISO RDERS OF KIDNEY AND URETER COMPARISON: MRI Lumbar spine [facility] 07/31/2017 CT abdomen pelvis 11/17/2013, 04/03/2013, 12/10/2009 TECHNIQUE: Dynamic and static grayscale images acquired of the kidneys and bladder and recorded on P ACS. Additional selected color Doppler and spectral images recorded. LIMITATIONS: None. FINDINGS: Right kidney measures 10 cm in length. No cysts, stones, masses, or hydronephrosis. Left kidney 9 cm in length. In the medial aspect left upper pole kidney on prior CT exams, a fatty d ensity 5 x 3.5 cm mass with an embolization coil is present, likely an angiomyolipoma. Patient has be en seen by Dr. Saeed in the past for this. Remainder of the left kidney is otherwise unremarkable. Urinary bladder unremarkable. IMPRESSION: Mass on outside MRI correlates with a 5 x 3.5 cm fatty density left upper pole renal mas s on CT exam 09/08/2017 here with embolization coil present.This mass is very difficult to identify at ultrasound today. No hydronephrosis. No gross evidence of stones. Bladder unremarkable. TECHNICAL DOCUMENTATION: JOB ID: [id number] [employer]- All Rights Reserved Reading location - IP/workstation name: [email or web address]
== END ==
LOC: RAD 13:15
PROVIDERS: ATTEND Family Medicine
DX: N28.89 Other specified disorders of kidney and ureter (principal)
CPT/HCPCS: 76770

== ENCOUNTER 2017-10-26 14:13 | Emergency (ER) | payer MEDICAID ==
[2017-10-26] MEDS ORDERED: HYDROCODONE/ACETAMINOPHEN 5-325 MG TABLET PO ONE (15:45)
[2017-10-26] MEDS ORDERED: ONDANSETRON 4 MG TAB.RAPDIS PO ONE (15:45)
--- NOTE | 2017-10-26 15:47 | ER Document Report ---
ED Medical Screen (RME) - General Chief Complaint: Diarrhea Stated Complaint: DIARRHEA Time Seen by Provider: 10/26/17 15:45 Notes: nvd with liquid black stool and abd cramping. TRAVEL OUTSIDE OF THE [place] IN LAST 30 DAYS: No - Related Data Allergies/Adverse Reactions: Penicillins Allergy (Mild, Verified 07/02/17 11:37) rash Past Medical History - Social History Frequency of alcohol use: None - Past Medical History Cardiac Medical History: Reports: Hx Hypercholesterolemia, Hx Hypertension - medicated Neurological Medical History: Reports: Hx Migraine. Denies: Hx Seizures Renal/ Medical History: Denies: Hx Kidney Stones, Hx Peritoneal Dialysis GI Medical History: Denies: Hx Hiatal Hernia, Hx Ulcer Musculoskeltal Medical History: Reports Hx Musculoskeletal Deformity, Reports Hx Musculoskeletal Trauma Psychiatric Medical History: Reports: Hx Depression Past Surgical History: Reports: Hx Cholecystectomy, Hx Kidney (Renal Surgery) - Kidney stone removal with hernia repair at same time, Hx Orthopedic Surgery - Foot surgery to right great toe. Denies: Hx Hysterectomy, Hx Mastectomy, Hx Open Heart Surgery - Immunizations Hx Diphtheria, Pertussis, Tetanus Vaccination: No Physical Exam - Vital signs Vitals: Temp Pulse Resp BP Pulse Ox 97.9 F 71 14 123/84 98 10/26/17 15:00 10/26/17 15:00 10/26/17 15:00 10/26/17 15:00 10/26/17 15:00 Course - Vital Signs Vital signs: Temp Pulse Resp BP Pulse Ox 97.9 F 71 14 123/84 98 10/26/17 15:00 10/26/17 15:00 10/26/17 15:00 10/26/17 15:00 10/26/17 15:00
[2017-10-26 17:32] LABS: ABSOLUTE LYMPHOCYTES (AUTO) 0.7 10^3/uL (0.5-4.7); ABSOLUTE MONOCYTES (AUTO) 0.2 10^3/uL (0.1-1.4); ABSOLUTE NEUT (AUTO) 2.9 10^3/uL (1.7-8.2); BASOPHILS % (AUTO) 0.4 % (0-2); EOSINOPHILS % (AUTO) 0.7 % (0-6); HEMATOCRIT 39.1 % (36.0-47.0); HEMOGLOBIN 13.3 g/dL (12.0-15.5); LYMPHOCYTES % (AUTO) 17.6 % (13-45); MEAN CORPUSCULAR HEMOGLOBIN 26.9 pg (27.0-33.4); MEAN CORPUSCULAR VOLUME 79 fl (80-97); MONOCYTES % (AUTO) 4.2 % (3-13); PLATELET COUNT 189 10^3/uL (150-450); RED BLOOD COUNT 4.94 10^6/uL (3.72-5.28); SEGMENTED NEUTROPHILS % (AUTO) 77.1 % (42-78); TOTAL CELLS COUNTED % (AUTO) 100 %; WHITE BLOOD COUNT 3.8 10^3/uL (4.0-10.5)
[2017-10-26 17:57] LABS: ALANINE AMINOTRANSFERASE 37 U/L (9-52); ALKALINE PHOSPHATASE 83 U/L (38-126); ANION GAP 12 (5-19); ASPARTATE AMINO TRANSFERASE 29 U/L (14-36); BILIRUBIN,DIRECT 0.2 mg/dL (0.0-0.4); BILIRUBIN,TOTAL 0.2 mg/dL (0.2-1.3); BLOOD UREA NITROGEN 20 mg/dL (7-20); CARBON DIOXIDE 25 mmol/L (22-30); CHLORIDE 106 mmol/L (98-107); GLUCOSE 90 mg/dL (75-110); POTASSIUM 3.7 mmol/L (3.6-5.0); TOTAL PROTEIN 6.8 g/dL (6.3-8.2)
[2017-10-26 18:05] LABS: APPEARANCE,URINE SLIGHTLY-CLOUDY; BILIRUBIN,URINE NEGATIVE (NEGATIVE); COLOR,URINE YELLOW; GLUCOSE, URINE NEGATIVE (NEGATIVE); KETONES,URINE NEGATIVE (NEGATIVE); LEUKOCYTE ESTERASE,URINE NEGATIVE (NEGATIVE); NITRITE,URINE NEGATIVE (NEGATIVE); PROTEIN,URINE 30 mg/dL (NEGATIVE); URINE SPECIFIC GRAVITY 1.035; UROBILINOGEN,URINE NEGATIVE mg/dL (<2.0)
--- NOTE | 2017-10-26 18:41 | ER Document Report ---
ED GI/ - General Chief Complaint: Diarrhea Stated Complaint: DIARRHEA Time Seen by Provider: 10/26/17 15:45 Notes: The patient is a 62-year-old female who presents with 2 days of abdominal cramping and watery diarrhea that started after she ate greasy food at a local restaurant. Patient denies recent travel, fevers, bloody or black stools ( despite triage note), nausea, vomiting, urinary symptoms, recent antibiotic use or chest pain. TRAVEL OUTSIDE OF THE [place] IN LAST 30 DAYS: No - Related Data Allergies/Adverse Reactions: Penicillins Allergy (Mild, Verified 07/02/17 11:37) rash Past Medical History - General Information source: Patient - Social History Smoking Status: Never Smoker Frequency of alcohol use: None Family History: Arthritis - Rheumatoid arthritis, CAD, CVA, Hyperlipidemia, Hypertension, Other - Reynard's. denies: COPD, DM, Malignancy, Thyroid Disfunction Patient has suicidal ideation: No Patient has homicidal ideation: No - Past Medical History Cardiac Medical History: Reports: Hx Hypercholesterolemia, Hx Hypertension - medicated Neurological Medical History: Reports: Hx Migraine. Denies: Hx Seizures Renal/ Medical History: Denies: Hx Kidney Stones, Hx Peritoneal Dialysis GI Medical History: Denies: Hx Hiatal Hernia, Hx Ulcer Musculoskeltal Medical History: Reports Hx Musculoskeletal Deformity, Reports Hx Musculoskeletal Trauma Psychiatric Medical History: Reports: Hx Depression Past Surgical History: Reports: Hx Cholecystectomy, Hx Kidney (Renal Surgery) - Kidney stone removal with hernia repair at same time, Hx Orthopedic Surgery - Foot surgery to right great toe. Denies: Hx Hysterectomy, Hx Mastectomy, Hx Open Heart Surgery - Immunizations Hx Diphtheria, Pertussis, Tetanus Vaccination: No Review of Systems - Review of Systems Notes: REVIEW OF SYSTEMS: CONSTITUTIONAL: -fevers, -chills EENT: -eye pain, -difficulty swallowing, -nasal congestion CARDIOVASCULAR: -chest pain, -syncope. RESPIRATORY: -cough, -SOB GASTROINTESTINAL: +abdominal cramping, -nausea, -vomiting, +diarrhea GENITOURINARY: -dysuria, -hematuria MUSCULOSKELETAL: -back pain, -neck pain SKIN: -rash or skin lesions. HEMATOLOGIC: -easy bruising or bleeding. LYMPHATIC: -swollen, enlarged glands. NEUROLOGICAL: -altered mental status or loss of consciousness, -headache, - neurologic symptoms PSYCHIATRIC: -anxiety, -depression. ALL OTHER SYSTEMS REVIEWED AND NEGATIVE. Physical Exam - Vital signs Vitals: Temp Pulse Resp BP Pulse Ox 97.9 F 71 14 123/84 98 10/26/17 15:00 10/26/17 15:00 10/26/17 15:00 10/26/17 15:00 10/26/17 15:00 - Notes Notes: PHYSICAL EXAMINATION: GENERAL: Well-appearing, well-nourished and in no acute distress. HEAD: Atraumatic, normocephalic. EYES: Pupils equal round and reactive to light, extraocular movements intact, sclera anicteric, conjunctiva are normal. ENT: nares patent, oropharynx clear without exudates. Moist mucous membranes. NECK: Normal range of motion, supple without lymphadenopathy LUNGS: Breath sounds clear to auscultation bilaterally and equal. No wheezes rales or rhonchi. HEART: Regular rate and rhythm without murmurs ABDOMEN: Soft, nontender, normoactive bowel sounds. No guarding, no rebound. No masses appreciated. EXTREMITIES: Normal range of motion, no pitting or edema. No cyanosis. NEUROLOGICAL: Cranial nerves grossly intact. Normal speech, normal gait. Normal sensory and motor exams. PSYCH: Normal mood, normal affect. SKIN: Warm, Dry, normal turgor, no rashes or lesions noted. Course - Re-evaluation Re-evalutation: Patient appears well. Her abdomen is soft and nontender. She denies any black or bloody stools and her hemoglobin is normal. Patient has not had any recent antibiotics and has not been out of the country. Instructed her to stay hydrated and use Imodium and Gas-X as needed. Given strict return precautions and she understands. - Vital Signs Vital signs: Temp Pulse Resp BP Pulse Ox 97.9 F 71 14 123/84 98 10/26/17 15:00 10/26/17 15:00 10/26/17 15:00 10/26/17 15:00 10/26/17 15:00 - Laboratory Result Diagrams: 10/26/17 17:15 10/26/17 17:15 Laboratory results interpreted by me: 10/26/17 10/26/17 17:15 17:20 WBC 3.8 L MCV 79 L MCH 26.9 L RDW 15.0 H Urine Protein 30 H Discharge - Discharge Clinical Impression: Abdominal cramping Diarrhea Qualifiers: Diarrhea type: unspecified type Qualified Code(s): R19.7 - Diarrhea, unspecified Condition: Stable Disposition: HOME, SELF-CARE Additional Instructions: DIARRHEA, NON-SPECIFIC: Diarrhea means frequent, watery stools. There are many causes. Any problem that keeps the intestinal tract from absorbing water from the stool can lead to diarrhea. A sudden new diarrhea problem is usually caused by a virus, food sensitivity, toxic bacteria, or drugs. In this case, we expect the problem to go away soon. Testing is done only if you seem seriously ill from the diarrhea. If you have chronic diarrhea, or diarrhea that keeps coming back, we need to find out why. Chronic diarrhea can be due to inflammation of the bowels such as Crohn's disease or ulcerative colitis, food sensitivity such as intolerance to lactose or wheat protein, irritable bowel syndrome, and other problems. If your diarrhea is a significant problem but it's not clear why you have it, we' ll refer you to a specialist for further testing. During an episode of diarrhea, drink small amounts (two to six ounces) of clear liquids (soft drinks, sport drinks, herb teas, broth, etc). Take fluids frequently to prevent dehydration. It's usually not a problem to take mild anti- diarrhea medication such as Kaopectate or Pepto-Bismol. As the diarrhea eases, advance to small amounts of bland food (mashed potato, toast) for 24 hours. Call the physician if blood appears in your vomit or stool, if vomiting lasts longer than 24 hours, if the abdominal pain worsens or becomes localized to one area, if you develop high fever, or if you become lightheaded and weak. VIRAL SYNDROME: The physician has diagnosed a viral infection. Viruses not only cause "colds," but can cause many different symptoms including generalized aching, fever, headache, cough, diarrhea, nausea, vomiting, and fatigue. The treatment, for the most part, is simply relief of symptoms. This means that antibiotics are usually not given. Rest, fluids, pain medications and, occasionally, medication for the specific symptoms that are most bothersome will be prescribed. Use good handwashing to avoid passing the virus to others. Shared toys should be cleaned with disinfectant. Clean the toilets, sinks, and counter surfaces in bathrooms. Launder clothing in hot water. Contact the physician if you develop any new or unusual symptoms such as severe headache, stiff neck, high fever, chest pain, productive cough, or shortness of breath. You should be rechecked if you don't see marked improvement within seven to 10 days. FOLLOW-UP CARE: If you have been referred to a physician for follow-up care, call the physician s office for an appointment as you were instructed or within the next two days. If you experience worsening or a significant change in your symptoms, notify the physician immediately or return to the Emergency Department at any time for re-evaluation. Referrals: ANNALEE MENDEZ MD [Primary Care Provider] - Follow up as needed STUART PETERS MD [ACTIVE STAFF] - Follow up as needed
[2017-10-26 19:19] VITALS: BP 117/77
== END 2017-10-26 19:23 | disposition home or self-care (01) ==
LOC: ER 14:13
DX: R19.7 Diarrhea, unspecified (principal); R10.9 Unspecified abdominal pain; I10 Essential (primary) hypertension; Z88.0 Allergy status to penicillin; Z90.49 Acquired absence of other specified parts of digestive tract
CPT/HCPCS: 99284; 36415; 85025; 80053; 81001; S0119

== ENCOUNTER 2018-02-12 14:28 | Emergency (ER) | payer MEDICAID ==
[2018-02-12] MEDS ORDERED: METHOCARBAMOL 750 MG TABLET PO ONE (17:17)
--- NOTE | 2018-02-12 17:23 | ER Document Report ---
ED General - General Chief Complaint: Low Back Pain Stated Complaint: SIDE PAIN Time Seen by Provider: 02/12/18 16:39 Mode of Arrival: Ambulatory Information source: Patient TRAVEL OUTSIDE OF THE [place] 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 The patient had a previous MRI done on 07/31/17 that she reported showed some disc issues, but the patient has had shots to the spine with steroids without improvement, last one was 1 month ago. The patient denies any numbness or paresthesia or incontinence but states she has pain to the right lower back going down the gluteal region to the right greater than left thigh that is worse when she gets up in the morning with twisting motions. She denies any dysuria or frequency or abdominal pain. No cough congestion or chest pain or difficulty breathing. - Related Data Allergies/Adverse Reactions: Penicillins Allergy (Mild, Verified 07/02/17 11:37) rash Past Medical History - General Information source: Patient - Social History Smoking Status: Never Smoker Chew tobacco use (# tins/day): No Drug Abuse: None Lives with: Family Family History: Arthritis - Rheumatoid arthritis, CAD, CVA, Hyperlipidemia, Hypertension, Other - Reynard's. denies: COPD, DM, Malignancy, Thyroid Disfunction Patient has suicidal ideation: No Patient has homicidal ideation: No - Past Medical History Cardiac Medical History: Reports: Hx Hypercholesterolemia, Hx Hypertension - medicated Neurological Medical History: Reports: Hx Migraine. Denies: Hx Seizures Renal/ Medical History: Denies: Hx Kidney Stones, Hx Peritoneal Dialysis GI Medical History: Denies: Hx Hiatal Hernia, Hx Ulcer Musculoskeletal Medical History: Reports Hx Musculoskeletal Deformity, Reports Hx Musculoskeletal Trauma Psychiatric Medical History: Reports: Hx Depression Past Surgical History: Reports: Hx Cholecystectomy, Hx Kidney (Renal Surgery) - Kidney stone removal with hernia repair at same time, Hx Orthopedic Surgery - Foot surgery to right great toe. Denies: Hx Hysterectomy, Hx Mastectomy, Hx Open Heart Surgery - Immunizations Hx Diphtheria, Pertussis, Tetanus Vaccination: No Review of Systems - Review of Systems -: Yes All other systems reviewed and negative Physical Exam - Vital signs Vitals: Temp Pulse Resp BP Pulse Ox 98.3 F 88 20 166/109 H 94 02/12/18 14:40 02/12/18 14:40 02/12/18 14:40 02/12/18 14:40 02/12/18 14:40 - Notes Notes: PHYSICAL EXAMINATION: GENERAL: Well-appearing, well-nourished and in no acute distress. HEAD: Atraumatic, normocephalic. EYES: Pupils equal round and reactive to light, extraocular movements intact, conjunctiva are normal. ENT: Nares patent, oropharynx clear without exudates. Moist mucous membranes. NECK: Normal range of motion, supple without lymphadenopathy LUNGS: Breath sounds clear to auscultation bilaterally and equal. No wheezes rales or rhonchi. HEART: Regular rate and rhythm without murmurs ABDOMEN: Soft, nontender, nondistended abdomen. No guarding, no rebound. No masses appreciated. No pulsatile mass Female : deferred Musculoskeletal: Normal range of motion, no pitting or edema. No cyanosis. Pain appreciated through the lower lumbar spine along L4 L5/S1 with radiation right gluteal region greater than left. There is no CVA tenderness noted. No specific pain through the hips which show good mobility, and there is minimal if any straight leg raise reproduction of discomfort. NEUROLOGICAL: Cranial nerves grossly intact. Normal speech, normal gait. Normal sensory, motor exams. Normal reflexes. No saddle anesthesia. PSYCH: Normal mood, normal affect. SKIN: Warm, Dry, normal turgor, no rashes or lesions noted. Course - Re-evaluation Re-evalutation: 02/12/18 17:21 Old records were reviewed. Patient has normal BUN and creatinine. The patient had a CT scan of the abdomen for the same right flank pain on 09/08/17 which was negative for stones or other abnormalities. I cannot see the MRI results which were done at an outside facility. Patient had a renal ultrasound on 09/22/17 for the same discomfort which showed no significant abnormality. No evidence for cauda equina syndrome. 02/12/18 17:23 - Vital Signs Vital signs: Temp Pulse Resp BP Pulse Ox 98.3 F 88 20 166/109 H 94 02/12/18 14:40 02/12/18 14:40 02/12/18 14:40 02/12/18 14:40 02/12/18 14:40 Discharge - Discharge Clinical Impression: Lumbar radicular pain Back strain Qualifiers: Encounter type: initial encounter Qualified Code(s): S39.012A - Strain of muscle, fascia and tendon of lower back, initial encounter Condition: Stable Disposition: HOME, SELF-CARE Instructions: Low Back Pain ([facility]), Radiculopathy ([facility]) Prescriptions: Methocarbamol [Robaxin 500 mg Tablet] 500 mg PO Q6HP PRN #30 tablet PRN Reason: Ibuprofen [Ibu] 800 mg PO Q8HP PRN #30 tablet PRN Reason: Referrals: ANNALEE MENDEZ MD [Primary Care Provider] - Follow up as needed
[2018-02-12 17:45] VITALS: BP 156/111
== END 2018-02-12 17:45 | disposition home or self-care (01) ==
LOC: ER 14:28
DX: S39.012A Strain of muscle, fascia and tendon of lower back, initial encounter (principal); X58.XXXA Exposure to other specified factors, initial encounter; M54.16 Radiculopathy, lumbar region; I10 Essential (primary) hypertension; Z88.0 Allergy status to penicillin; Z82.61 Family history of arthritis
CPT/HCPCS: 99283; J3490

== ENCOUNTER 2018-04-21 12:08 | Emergency (ER) | payer MEDICAID ==
[2018-04-21] MEDS ORDERED: IPRATROPIUM/ALBUTEROL 0.5-2.5 MG/3 ML AMPUL NEB ONE (13:28)
--- NOTE | 2018-04-21 13:33 | ER Document Report ---
ED Respiratory Problem - General Chief Complaint: Cough Stated Complaint: COUGH Time Seen by Provider: 04/21/18 13:15 Notes: Chief complaint: Cough and wheezing History of complain:( obtained from----patient) 62 years old female with a history of asthma, ran out of her pro-air presents today with on and off cough and wheezing. Largely nonproductive cough sometimes yellow sputum. No fever chills or other constitutional symptoms. Onset: As above Duration: Last few days Severity: Mild to moderate Quality: Wheezing Context: History of asthma Exacerbating factor and relieving factors: Exertion REVIEW OF SYSTEMS: CONSTITUTIONAL : Denies fever, chills, or sweats. Denies recent illness. EENT: Denies eye, ear, throat, or mouth pain or symptoms. Denies nasal or sinus congestion or discharge. Denies throat, tongue, or mouth swelling or difficulty swallowing. CARDIOVASCULAR: Denies chest pain. Denies palpitations or racing or irregular heart beat. Denies ankle edema. RESPIRATORY: Denies cough, cold, or chest congestion. Denies shortness of breath, difficulty breathing, or wheezing. GASTROINTESTINAL: Denies distention. Denies nausea, vomiting, or diarrhea. Denies blood in vomitus, stools, or per rectum. Denies black, tarry stools. Denies constipation. GENITOURINARY: Denies difficulty urinating, painful urination, burning, frequency, blood in urine, or discharge. FEMALE GENITOURINARY: Denies vaginal bleeding, heavy or abnormal periods, irregular periods. Denies vaginal discharge or odor. MUSCULOSKELETAL: Denies back or neck pain or stiffness. Denies joint pain or swelling. SKIN: Denies rash, lesions or sores. HEMATOLOGIC : Denies easy bruising or bleeding. LYMPHATIC: Denies swollen, enlarged glands. NEUROLOGICAL: Denies confusion or altered mental status. Denies passing out or loss of consciousness. Denies dizziness or lightheadedness. Denies headache. Denies weakness or paralysis or loss of use of either side. Denies problems with gait or speech. Denies sensory loss, numbness, or tingling. Denies seizures. PSYCHIATRIC: Denies anxiety or stress. Denies depression, suicidal ideation, or homicidal ideation. ALL OTHER SYSTEMS REVIEWED AND NEGATIVE. PHYSICAL EXAMINATION: GENERAL: Well-appearing, well-nourished and in no acute distress. HEAD: Atraumatic, normocephalic. EYES: Pupils equal round and reactive to light, extraocular movements intact, conjunctiva are normal. ENT: Nares patent, oropharynx clear without exudates. Moist mucous membranes. NECK: Normal range of motion, supple without lymphadenopathy LUNGS: Breath sounds clear to auscultation bilaterally and equal. No wheezes rales or rhonchi. HEART: Regular rate and rhythm without murmurs ABDOMEN: Soft, nontender, nondistended abdomen. No guarding, no rebound. No masses appreciated. Examination of genitals-deferred Musculoskeletal: Normal range of motion, no pitting or edema. No cyanosis. NEUROLOGICAL: Cranial nerves grossly intact. Normal speech, normal gait. Normal sensory, motor exams PSYCH: Normal mood, normal affect. SKIN: Warm, Dry, normal turgor, no rashes or lesions noted. Dictation was performed using [employer] voice recognition software TRAVEL OUTSIDE OF THE [place] IN LAST 30 DAYS: No - HPI Notes: Dictated - Related Data Allergies/Adverse Reactions: Penicillins Allergy (Mild, Verified 07/02/17 11:37) rash Past Medical History - Social History Smoking Status: Never Smoker Frequency of alcohol use: Rare Drug Abuse: None Family History: Reviewed & Not Pertinent, Arthritis - Rheumatoid arthritis, CAD , CVA, Hyperlipidemia, Hypertension, Other - Reynard's. denies: COPD, DM, Malignancy, Thyroid Disfunction Patient has suicidal ideation: No Patient has homicidal ideation: No - Past Medical History Cardiac Medical History: Reports: Hx Hypercholesterolemia, Hx Hypertension - medicated Neurological Medical History: Reports: Hx Migraine. Denies: Hx Seizures Renal/ Medical History: Denies: Hx Kidney Stones, Hx Peritoneal Dialysis GI Medical History: Denies: Hx Hiatal Hernia, Hx Ulcer Musculoskeletal Medical History: Reports Hx Musculoskeletal Deformity, Reports Hx Musculoskeletal Trauma Psychiatric Medical History: Reports: Hx Depression Past Surgical History: Reports: Hx Cholecystectomy, Hx Kidney (Renal Surgery) - Kidney stone removal with hernia repair at same time, Hx Orthopedic Surgery - Foot surgery to right great toe. Denies: Hx Hysterectomy, Hx Mastectomy, Hx Open Heart Surgery - Immunizations Hx Diphtheria, Pertussis, Tetanus Vaccination: No Review of Systems - Review of Systems Notes: Dictated Physical Exam - Vital signs Vitals: Temp Pulse Resp BP Pulse Ox 98.4 F 73 16 153/103 H 96 04/21/18 12:39 04/21/18 12:39 04/21/18 12:39 04/21/18 12:39 04/21/18 12:39 - Notes Notes: Dictated Course - Re-evaluation Re-evalutation: 04/21/18 13:30 Given bronchodilator treatment with DuoNeb - Vital Signs Vital signs: Temp Pulse Resp BP Pulse Ox 98.4 F 73 16 153/103 H 96 04/21/18 12:39 04/21/18 12:39 04/21/18 12:39 04/21/18 12:39 04/21/18 12:39 Discharge - Discharge Clinical Impression: Asthma attack Qualifiers: Asthma severity: moderate Asthma persistence: unspecified Qualified Code(s): J45.901 - Unspecified asthma with (acute) exacerbation Condition: Fair Disposition: HOME, SELF-CARE Instructions: Asthma ([facility]) Prescriptions: Albuterol Sulfate [Proair Hfa] 8.5 gm IH Q4 #1 [email or web address] Beclomethasone Dipropionate [Qvar] 1 - 2 inh IH BID PRN #1 [email or web address] PRN Reason: Referrals: ANNALEE MENDEZ MD [Primary Care Provider] - Follow up as needed
[2018-04-21 14:14] VITALS: BP 149/95
== END 2018-04-21 14:13 | disposition home or self-care (01) ==
LOC: ER 12:08
DX: J45.901 Unspecified asthma with (acute) exacerbation (principal); R05 Cough; I10 Essential (primary) hypertension; Z79.899 Other long term (current) drug therapy
CPT/HCPCS: 94640; 99284; J7620

== ENCOUNTER 2018-05-09 15:36 | Emergency (ER) | payer MEDICAID ==
[2018-05-09 15:54] VITALS: BP 165/88
[2018-05-09] MEDS ORDERED: ACETAMINOPHEN 325 MG TABLET PO ONE (16:07)
--- NOTE | 2018-05-09 16:12 | ER Document Report ---
HPI - HPI Pain Level: 4 Notes: Patient is a 62-year-old female with a history of asthma who presents to the ED complaining of nasal congestion, discharge, and some maxillary sinus pressure over the last 2-3 days. Patient has not been using any [id number] meds for her symptoms. She is eating and drinking without any difficulties. She is urinating normally. Patient states that she does continue to have a chronic intermittent occasional cough that is nonproductive. Patient states that she currently does not have her inhaler and would like another prescription for 1. She has no other concerns or complaints at this time. Denies any headache, fever, head injury, neck pain, changes in vision/speech/mentation/hearing, sore throat, chest pain, palpitations, syncope, shortness of breath, wheeze, dyspnea , abdominal pain, nausea/vomiting/diarrhea, urinary retention, dysuria, hematuria, or rash. - ROS Systems Reviewed and Negative: Yes All other systems reviewed and negative - CONSTITUTIONAL Constitutional: DENIES: Fever, Chills - EENT EENT: DENIES: Sore Throat, Ear Pain, Eye problems - NEURO Neurology: REPORTS: Headache. DENIES: Weakness, Vision blurred, Dizzinesss / Vertigo - CARDIOVASCULAR Cardiovascular: DENIES: Chest pain - RESPIRATORY Respiratory: DENIES: Trouble Breathing, Coughing - GASTROINTESTINAL Gastrointestinal: DENIES: Abdominal Pain, Black / Bloody Stools - REPRODUCTIVE Reproductive: DENIES: : - MUSCULOSKELETAL Musculoskeletal: DENIES: Extremity pain Past Medical History - Social History Smoking Status: Never Smoker Chew tobacco use (# tins/day): No Frequency of alcohol use: None Drug Abuse: None Family History: Reviewed & Not Pertinent, Arthritis - Rheumatoid arthritis, CAD , CVA, Hyperlipidemia, Hypertension, Other - Reynard's. denies: COPD, DM, Malignancy, Thyroid Disfunction Patient has suicidal ideation: No Patient has homicidal ideation: No - Past Medical History Cardiac Medical History: Reports: Hx Hypercholesterolemia, Hx Hypertension - medicated Neurological Medical History: Reports: Hx Migraine. Denies: Hx Seizures Renal/ Medical History: Denies: Hx Kidney Stones, Hx Peritoneal Dialysis GI Medical History: Denies: Hx Hiatal Hernia, Hx Ulcer Musculoskeletal Medical History: Reports Hx Musculoskeletal Deformity, Reports Hx Musculoskeletal Trauma Psychiatric Medical History: Reports: Hx Depression Past Surgical History: Reports: Hx Cholecystectomy, Hx Kidney (Renal Surgery) - Kidney stone removal with hernia repair at same time, Hx Orthopedic Surgery - Foot surgery to right great toe. Denies: Hx Hysterectomy, Hx Mastectomy, Hx Open Heart Surgery - Immunizations Hx Diphtheria, Pertussis, Tetanus Vaccination: No Vertical Provider Document - CONSTITUTIONAL Agree With Documented VS: Yes Notes: PHYSICAL EXAMINATION: GENERAL: Well-appearing, well-nourished and in no acute distress. A&Ox4. Answers questions appropriately. Moves comfortably w/o notable distress. Pt pleasant and telling jokes during my visit, laughing. HEAD: Atraumatic, normocephalic. EYES: Pupils equal round and reactive to light, extraocular movements intact, sclera anicteric, conjunctiva are normal. ENT: EAC clear b/l. TM's intact b/l without erythema, fluid, or perforation. Nares patent and with clear discharge. oropharynx no erythema without exudates. No tonsilar hypertrophy without erythema or exudate. No palatine shift. Uvula midline. No tongue protrusion. No drooling, hoarseness, or airway compromise. Moist mucous membranes. No sinus tenderness. NECK: Normal range of motion, supple without lymphadenopathy. No rigidity/ meningismus. LUNGS: Breath sounds clear to auscultation bilaterally and equal. No wheezes rales or rhonchi. No retractions HEART: Regular rate and rhythm without murmurs, rubs, gallops. ABDOMEN: Soft, nontender, nondistended abdomen. No guarding, no rebound. No masses appreciated. Normal bowel sounds present. No CVA tenderness bilaterally. No hepatosplenomegaly. NEUROLOGICAL: Normal speech, normal gait. PSYCH: Normal mood, normal affect. SKIN: Warm, Dry, normal turgor, no rashes or lesions noted. - INFECTION CONTROL TRAVEL OUTSIDE OF THE [place] IN LAST 30 DAYS: No Course - Re-evaluation Re-evalutation: 05/09/18 16:09 Patient is an afebrile, well-hydrated, 62-year-old female who presents to the ED with acute URI/sinusitis, suspect viral. Vitals are acceptable. PE is otherwise unremarkable. No labs or imaging warranted at this time based on H& P. Patient has no significant cardiopulmonary or immunocompromised medical conditions. Patient's lungs are clear to auscultation bilaterally without tachycardia, hypoxia, or tachypnea. Patient is tolerating p.o. without any difficulties. Low suspicion for any meningitis, sepsis, peritonsillar/ pharyngeal abscess, respiratory compromise, severe dehydration, or other emergent systemic condition at this time. Patient is aware this condition can change from initial presentation and she needs to monitor symptoms closely. Rx for flonase, mucinex, and albuterol inhaler. Conservative measures otherwise for symptoms. Recheck with your PCM in 2-3 days. Return to the ED with any worsening/concerning symptoms otherwise as reviewed in discharge. Patient is in agreement. - Vital Signs Vital signs: Temp Pulse Resp BP Pulse Ox 98.3 F 62 20 165/88 H 97 05/09/18 15:52 05/09/18 15:52 05/09/18 15:52 05/09/18 15:52 05/09/18 15:52 Discharge - Discharge Clinical Impression: Acute URI Acute sinusitis Qualifiers: Sinusitis location: unspecified location Recurrence: non-recurrent Qualified Code(s): J01.90 - Acute sinusitis, unspecified Condition: Stable Disposition: HOME, SELF-CARE Instructions: Upper Respiratory Illness ([facility]) Additional Instructions: Maintain adequate fluid intake Take meds as directed tylenol/ibuprofen as needed over the counter cold medication as needed for symptoms Humidified air may help Wash your hands regularly Wear a mask when coughing F/u: with your PCM in 2-3 days for a recheck Return to the ED with any fever, worsening pain, chest pain, palpitations, syncope, worsening NELSON, neck pain/stiffness, shortness of breath, wheezing, drooling, trouble swallowing/breathing, abdominal pain, n/v/d, rash, or worsening/concerning symptoms otherwise. Prescriptions: Albuterol Sulfate [Proair HFA Inhalation Aerosol 8.5 gm MDI] 2 puff IH Q4H PRN # 1 mdi PRN Reason: Fluticasone Propionate [Flonase Allergy Relief] 1 spray NS BID #1 bottle Guaifenesin [Mucinex] 600 mg PO BID #6 tab.er.[id number] Forms: Elevated Blood Pressure Referrals: ANNALEE MENDEZ MD [Primary Care Provider] - 05/12/18
== END 2018-05-09 16:14 | disposition home or self-care (01) ==
LOC: ER 15:36
DX: J06.9 Acute upper respiratory infection, unspecified (principal); J01.90 Acute sinusitis, unspecified; R51 Headache; E78.00 Pure hypercholesterolemia, unspecified; I10 Essential (primary) hypertension; Z90.49 Acquired absence of other specified parts of digestive tract; Z87.442 Personal history of urinary calculi
CPT/HCPCS: 99283; J3490

== ENCOUNTER 2018-06-09 08:30 | Day surgery (SDC) | payer MEDICAID ==
[~2018-06-09 08:30] MED LIST: KETOROLAC TROMETHAMINE 0.45% 4 DROP/0.4 ML DROPERETTE OD PRN
[2018-06-09] MEDS: BESIFLOXACIN HCL 0.6% OPH SUSP 5 ML BOTTLE OD PRN ×4 (08:48→09:39)
[2018-06-09] MEDS: TETRACAINE HCL 0.5% OPH SOLN 0.6 ML DROPERETTE OD PRN ×4 (08:48→09:21)
[2018-06-09] MEDS: TROPICAMIDE 1% OPH SOLN 3 ML OD PRN ×3 (08:48→09:12)
[2018-06-09] MEDS: CYCLOPENTOLATE 0.2%/PHENYLEPHRINE 1% OPH SOLN 2 ML OD PRN ×3 (08:48→09:12)
[2018-06-09] MEDS ORDERED: ONDANSETRON HCL INJ/PF 4 MG/2 ML SDV ONE (09:05)
[2018-06-09] MEDS ORDERED: FENTANYL CITRATE INJ/PF 100 MCG/2 ML AMPUL ONE (09:05)
[2018-06-09] MEDS ORDERED: MIDAZOLAM 2 MG/2 ML INJ ONE (09:05)
[2018-06-09] MEDS: LIDOCAINE 1% INJ-PF (10 MG/ML) 30 ML SDV ONE ×2 (09:29)
[2018-06-09] MEDS: EPINEPHRINE INJ/PF 1 MG/1 ML AMPULE ONE ×2 (09:29)
[2018-06-09] MEDS: CHONDR SU A NA/HYALUR INTRAOC KIT (SURGICARE) ONE ×2 (09:29)
[2018-06-09] MEDS: TOBRAMYCIN SULFATE/DEXAMETH OPH OINTMENT 3.5 GM ONE ×2 (09:39)
[2018-06-09] MEDS ORDERED: LIDOCAINE 2% INJ-PF (20 MG/ML) 10 ML AMPUL ONE (09:46)
== END 2018-06-09 10:28 | disposition home or self-care (01) ==
LOC: SC 08:30
PROVIDERS: ATTEND Ophthalmology
DX: H25.11 Age-related nuclear cataract, right eye (principal); Z79.899 Other long term (current) drug therapy; Z88.0 Allergy status to penicillin; M19.90 Unspecified osteoarthritis, unspecified site; E78.00 Pure hypercholesterolemia, unspecified; I10 Essential (primary) hypertension; K21.9 Gastro-esophageal reflux disease without esophagitis; Z79.891 Long term (current) use of opiate analgesic; R51 Headache; G47.30 Sleep apnea, unspecified; I38 Endocarditis, valve unspecified; F41.9 Anxiety disorder, unspecified
CPT/HCPCS: 66984; V2630; J2250; J3490 ×6; J0171; J3010; J2405; 142

== ENCOUNTER → 2018-06-22 | Outpatient (CLI) | payer MEDICAID ==
--- NOTE | 2018-06-22 13:27 | RADIOLOGY REPORT (SQ) ---
EXAM DESCRIPTION: CAROTID DOPPLER COMPLETED DATE/TIME: 06/22/2018 11:47 am REASON FOR STUDY: DIZZINESS R42 DIZZINESS AND GIDDINESS COMPARISON: CT stone survey abdomen and pelvis 09/08/2017 TECHNIQUE: Grayscale ultrasound, Doppler velocity and spectra, and color Doppler images acquired of the extra-cranial carotid and vertebral arteries. Images stored on PACS. LIMITATIONS: None. FINDINGS: RIGHT CAROTID CCA Velocities: Within normal limits. Peak systolic velocity 0.9 m/sec ICA Velocities Peak systolic 0.69 m/s. End diastolic 0.26 m/s. Proximal ICA/CCA peak systolic ratio 1.2. Spectra normal. No significant plaque. LEFT CAROTID CCA Velocities: Within normal limits. Peak systolic velocity 1.1 m/sec ICA Velocities Peak systolic 1.1 m/s. End diastolic 0.45 m/s. Proximal ICA/CCA peak systolic ratio 1.0. Spectra normal. No significant plaque. VERTEBRAL ARTERIES: Antegrade flow. Normal waveforms. SUBCLAVIAN ARTERIES: Not evaluated OTHER: No other significant finding. IMPRESSION: NO HEMODYNAMICALLY SIGNIFICANT STENOSIS. COMMENT: Quality ID #[id number]: Velocity criteria are extrapolated from the diameter data as defined by t he Society of Radiologists in Ultrasound Consensus Conference. Radiology 2003: 229; 340-346. TECHNICAL DOCUMENTATION: JOB ID: [id number] [employer]- All Rights Reserved Reading location - IP/workstation name: [email or web address]
== END ==
LOC: SP 09:16
PROVIDERS: ATTEND Physician Assistant Medical
DX: R42 Dizziness and giddiness (principal)
CPT/HCPCS: 93880

== ENCOUNTER 2018-07-10 12:35 | Emergency (ER) | payer MEDICAID ==
[2018-07-10 12:52] VITALS: BP 156/86
[2018-07-10 14:13] LABS: APPEARANCE,URINE CLEAR; BILIRUBIN,URINE NEGATIVE (NEGATIVE); COLOR,URINE YELLOW; GLUCOSE, URINE NEGATIVE (NEGATIVE); KETONES,URINE NEGATIVE (NEGATIVE); LEUKOCYTE ESTERASE,URINE NEGATIVE (NEGATIVE); NITRITE,URINE NEGATIVE (NEGATIVE); PROTEIN,URINE NEGATIVE (NEGATIVE); URINE SPECIFIC GRAVITY 1.024; UROBILINOGEN,URINE NEGATIVE mg/dL (<2.0)
--- NOTE | 2018-07-10 14:21 | ER Document Report ---
ED Medical Screen (RME) - General Chief Complaint: Abdominal Pain Stated Complaint: ABDOMINAL PAIN Time Seen by Provider: 07/10/18 13:20 TRAVEL OUTSIDE OF THE [place] IN LAST 30 DAYS: No - Related Data Allergies/Adverse Reactions: Penicillins Allergy (Mild, Verified 07/10/18 12:37) rash Past Medical History - Social History Frequency of alcohol use: Occasional Drug Abuse: None - Past Medical History Cardiac Medical History: Reports: Hx Hypercholesterolemia, Hx Hypertension - medicated Pulmonary Medical History: Neurological Medical History: Reports: Hx Migraine. Denies: Hx Seizures Renal/ Medical History: Reports: Hx Kidney Stones. Denies: Hx Peritoneal Dialysis GI Medical History: Denies: Hx Hiatal Hernia, Hx Ulcer Musculoskeltal Medical History: Reports Hx Musculoskeletal Deformity, Reports Hx Musculoskeletal Trauma Psychiatric Medical History: Reports: Hx Depression Infectious Medical History: Past Surgical History: Reports: Hx Cholecystectomy, Hx Kidney (Renal Surgery) - stent, tumor removed, Hx Orthopedic Surgery - Foot surgery to right great toe. Denies: Hx Hysterectomy, Hx Mastectomy, Hx Open Heart Surgery - Immunizations Hx Diphtheria, Pertussis, Tetanus Vaccination: No Physical Exam - Vital signs Vitals: Temp Pulse Resp BP Pulse Ox 98.2 F 55 L 20 156/86 H 97 07/10/18 12:51 07/10/18 12:51 07/10/18 12:51 07/10/18 12:51 07/10/18 12:51 Course - Re-evaluation Re-evalutation: 07/10/18 14:21 62-year-old with what feels like pinching inside of her vagina. I have seen and evaluated this patient in rapid medical screening exam, there will require reexamination and further assessment with possible diagnostics and disposition determination by secondary provider. - Vital Signs Vital signs: Temp Pulse Resp BP Pulse Ox 98.2 F 55 L 20 156/86 H 97 07/10/18 12:51 07/10/18 12:51 07/10/18 12:51 07/10/18 12:51 07/10/18 12:51 Doctor's Discharge - Discharge Referrals: ANNALEE MENDEZ MD [Primary Care Provider] - Follow up as needed
--- NOTE | 2018-07-10 14:42 | ER Document Report ---
ED General - General Chief Complaint: Abdominal Pain Stated Complaint: ABDOMINAL PAIN Time Seen by Provider: 07/10/18 13:20 Mode of Arrival: Ambulatory Information source: Patient Notes: 62-year-old female presents emergency department complaints of pain when she urinates for the last day. She denies any alleviating factors. She denies any nausea, vomiting, abdominal pain, diarrhea, constipation, fever, chills, vaginal bleeding or vaginal discharge. TRAVEL OUTSIDE OF THE [place] IN LAST 30 DAYS: No - HPI Onset: Yesterday Onset/Duration: Intermittent Quality of pain: Stabbing Severity: None Associated symptoms: None Exacerbated by: Denies Relieved by: Denies Similar symptoms previously: No Recently seen / treated by doctor: No - Related Data Allergies/Adverse Reactions: Penicillins Allergy (Mild, Verified 07/10/18 12:37) rash Past Medical History - General Information source: Patient - Social History Smoking Status: Former Smoker Frequency of alcohol use: Occasional Drug Abuse: None Family History: Reviewed & Not Pertinent, Arthritis, CAD, CVA, Hyperlipidemia, Hypertension, Other Patient has suicidal ideation: No Patient has homicidal ideation: No - Past Medical History Cardiac Medical History: Reports: Hx Hypercholesterolemia, Hx Hypertension - medicated Pulmonary Medical History: Neurological Medical History: Reports: Hx Migraine. Denies: Hx Seizures Renal/ Medical History: Reports: Hx Kidney Stones. Denies: Hx Peritoneal Dialysis GI Medical History: Denies: Hx Hiatal Hernia, Hx Ulcer Musculoskeletal Medical History: Reports Hx Musculoskeletal Deformity, Reports Hx Musculoskeletal Trauma Psychiatric Medical History: Reports: Hx Depression Infectious Medical History: Past Surgical History: Reports: Hx Cholecystectomy, Hx Kidney (Renal Surgery) - stent, tumor removed, Hx Orthopedic Surgery - Foot surgery to right great toe. Denies: Hx Hysterectomy, Hx Mastectomy, Hx Open Heart Surgery - Immunizations Hx Diphtheria, Pertussis, Tetanus Vaccination: No Review of Systems - Review of Systems Constitutional: No symptoms reported EENT: No symptoms reported Cardiovascular: No symptoms reported Respiratory: No symptoms reported Gastrointestinal: No symptoms reported Genitourinary: Dysuria Female Genitourinary: Other - vaginal pain Musculoskeletal: No symptoms reported Skin: No symptoms reported Hematologic/Lymphatic: No symptoms reported Neurological/Psychological: No symptoms reported -: Yes All other systems reviewed and negative Physical Exam - Vital signs Vitals: Temp Pulse Resp BP Pulse Ox 98.2 F 55 L 20 156/86 H 97 07/10/18 12:51 07/10/18 12:51 07/10/18 12:51 07/10/18 12:51 07/10/18 12:51 - Notes Notes: PHYSICAL EXAMINATION: GENERAL: Well-appearing, well-nourished and in no acute distress. HEAD: Atraumatic, normocephalic. EYES: Pupils equal round and reactive to light, extraocular movements intact, conjunctiva are normal. ENT: Nares patent, oropharynx clear without exudates. Moist mucous membranes. NECK: Normal range of motion, supple without lymphadenopathy LUNGS: Breath sounds clear to auscultation bilaterally and equal. No wheezes rales or rhonchi. HEART: Regular rate and rhythm without murmurs ABDOMEN: Soft, nontender, nondistended abdomen. No guarding, no rebound. No masses appreciated. Female : White vaginal discharge appreciated. No cervical motion tenderness. No lesions seen. No ovarian tenderness to palpation. Musculoskeletal: Normal range of motion, no pitting or edema. No cyanosis. NEUROLOGICAL: Cranial nerves grossly intact. Normal speech, normal gait. Normal sensory, motor exams PSYCH: Normal mood, normal affect. SKIN: Warm, Dry, normal turgor, no rashes or lesions noted. Course - Re-evaluation Re-evalutation: 07/10/18 16:36 Patient was concerned about sexually transmitted diseases. She was given Rocephin and azithromycin while in the emergency department. Her labs do sug gest that she has bacterial vaginosis. I will start patient on Flagyl 500 mg twice daily. I instructed the patient to take the medication prescribed as directed, to follow-up with her primary care physician or JUDGE'S CLERK this week, and to return for worsening symptoms. Patient is agreeable to plan of care. - Vital Signs Vital signs: Temp Pulse Resp BP Pulse Ox 98.2 F 55 L 20 156/86 H 97 07/10/18 12:51 07/10/18 12:51 07/10/18 12:51 07/10/18 12:51 07/10/18 12:51 Discharge - Discharge Clinical Impression: Bacterial vaginosis Condition: Good Disposition: HOME, SELF-CARE Instructions: Vaginosis, Bacterial ([facility]) Prescriptions: Metronidazole [Flagyl 500 mg Tablet] 500 mg PO BID 7 Days #14 tablet Referrals: ANNALEE MENDEZ MD [Primary Care Provider] - Follow up as needed
[2018-07-10] MEDS ORDERED: LIDOCAINE 1% INJ-PF (10 MG/ML) 30 ML SDV INFIL ONE (15:27)
[2018-07-10] MEDS ORDERED: AZITHROMYCIN 250 MG TABLET PO ONE (15:27)
[2018-07-10] MEDS ORDERED: CEFTRIAXONE INJ 250 MG VIAL IM ONE (15:27)
[2018-07-10 15:38] LABS: BACTERIA (WET MOUNT) 3+ BACTERIA SEEN; EPITHELIALS (WET MOUNT) 3+ EPITHELIALS SEEN; RBCS (WET MOUNT) NO RBCS SEEN; T.VAGINALIS (WET MOUNT) NO TRICHOMONAS SEEN; WBCS (WET MOUNT) 1+ WBCS SEEN; YEAST (WET MOUNT) NO YEAST SEEN
[2018-07-10 17:09] LABS: CHLAM PCR NOT DETECTED (NOT DETECT); GON PCR NOT DETECTED (NOT DETECT)
== END 2018-07-10 16:44 | disposition home or self-care (01) ==
LOC: EDBD → ER 12:35
DX: N76.0 Acute vaginitis (principal); R10.9 Unspecified abdominal pain; I10 Essential (primary) hypertension; Z88.0 Allergy status to penicillin; Z87.891 Personal history of nicotine dependence
CPT/HCPCS: 99284; 96372; 87086; 87210; 81001; 87491; 87591; Q0144; J3490; J0696

== ENCOUNTER 2018-07-14 11:24 | Day surgery (SDC) | payer MEDICAID ==
[~2018-07-14 11:24] MED LIST changes: +CHONDR SU A NA/HYALUR INTRAOC KIT (SURGICARE) ONE; +EPINEPHRINE INJ/PF 1 MG/1 ML AMPULE ONE; -KETOROLAC TROMETHAMINE 0.45% 4 DROP/0.4 ML DROPERETTE OD PRN; +KETOROLAC TROMETHAMINE 0.45% 4 DROP/0.4 ML DROPERETTE OS PRN; +LIDOCAINE 1% INJ-PF (10 MG/ML) 30 ML SDV ONE; +TOBRAMYCIN SULFATE/DEXAMETH OPH OINTMENT 3.5 GM ONE
[2018-07-14] MEDS: CYCLOPENTOLATE 0.2%/PHENYLEPHRINE 1% OPH SOLN 2 ML OS PRN ×3 (12:01→12:19)
[2018-07-14] MEDS: TROPICAMIDE 1% OPH SOLN 3 ML OS PRN ×3 (12:01→12:19)
[2018-07-14] MEDS: BESIFLOXACIN HCL 0.6% OPH SUSP 5 ML BOTTLE OS PRN ×3 (12:02→12:49)
[2018-07-14] MEDS: TETRACAINE HCL 0.5% OPH SOLN 0.6 ML DROPERETTE OS PRN ×3 (12:03→12:35)
[2018-07-14] MEDS ORDERED: MIDAZOLAM 2 MG/2 ML INJ ONE (12:11)
== END 2018-07-14 13:45 | disposition home or self-care (01) ==
LOC: SC 11:24
PROVIDERS: ATTEND Ophthalmology
DX: H25.12 Age-related nuclear cataract, left eye (principal); M19.90 Unspecified osteoarthritis, unspecified site; I10 Essential (primary) hypertension; E78.00 Pure hypercholesterolemia, unspecified; I49.9 Cardiac arrhythmia, unspecified; K21.9 Gastro-esophageal reflux disease without esophagitis; Z79.899 Other long term (current) drug therapy; Z88.0 Allergy status to penicillin
CPT/HCPCS: 66984; V2630; J2250; J3490 ×5; J0171; 142

== ENCOUNTER 2018-08-04 14:30 | Emergency (ER) | payer SELFPAY ==
[2018-08-04 14:38] VITALS: BP 144/93
[2018-08-04] MEDS ORDERED: METHYLPREDNISOLONE INJ 125 MG/2 ML SDV IM ONE (14:52)
[2018-08-04] MEDS ORDERED: IPRATROPIUM/ALBUTEROL 0.5-2.5 MG/3 ML AMPUL NEB ONE (14:52)
--- NOTE | 2018-08-04 14:55 | ER Document Report ---
HPI - HPI Time Seen by Provider: 08/04/18 14:49 Pain Level: Denies Notes: Patient is a 62-year-old female with a history of depression and asthma who presents to the emergency department complaining of a dry cough and wheezing over the last several days. Patient states that she does have some nasal congestion and discharge, but otherwise feels well. She is able to walk without any dyspnea on exertion. She is eating and drinking without difficulty. She is urinating normally and having normal bowel movements. Patient states that she has been using her albuterol inhaler with some relief. Patient states that her wheezing is worse at night. No other concerns or complaints. Denies any headache, fever, neck pain, sore throat, chest pain, palpitations, syncope, shortness of breath, dyspnea, abdominal pain, nausea/vomiting/diarrhea, urinary retention, dysuria, hematuria, or rash. - ROS Systems Reviewed and Negative: Yes All other systems reviewed and negative - REPRODUCTIVE Reproductive: DENIES: : Past Medical History - Social History Smoking Status: Former Smoker Family History: Reviewed & Not Pertinent, Arthritis, CAD, CVA, Hyperlipidemia, Hypertension, Other - Past Medical History Cardiac Medical History: Reports: Hx Hypercholesterolemia, Hx Hypertension - medicated Denies: Hx Heart Attack Pulmonary Medical History: Neurological Medical History: Reports: Hx Migraine. Denies: Hx Seizures Renal/ Medical History: Reports: Hx Kidney Stones. Denies: Hx Peritoneal Dialysis GI Medical History: Denies: Hx Hiatal Hernia, Hx Ulcer Musculoskeletal Medical History: Reports Hx Musculoskeletal Deformity, Reports Hx Musculoskeletal Trauma Psychiatric Medical History: Reports: Hx Depression Infectious Medical History: Past Surgical History: Reports: Hx Cholecystectomy, Hx Kidney (Renal Surgery) - stent, tumor removed, Hx Orthopedic Surgery - Foot surgery to right great toe. Denies: Hx Hysterectomy, Hx Mastectomy, Hx Open Heart Surgery, Hx Pacemaker - Immunizations Hx Diphtheria, Pertussis, Tetanus Vaccination: No Vertical Provider Document - CONSTITUTIONAL Agree With Documented VS: Yes Notes: PHYSICAL EXAMINATION: GENERAL: Well-appearing, well-nourished and in no acute distress. A&Ox4. Answers questions appropriately. Moves comfortably w/o notable distress HEAD: Atraumatic, normocephalic. EYES: Pupils equal round and reactive to light, extraocular movements intact, sclera anicteric, conjunctiva are normal. ENT: EAC clear b/l. TM's intact b/l without erythema, fluid, or perforation. Nares patent and with clear discharge. oropharynx no erythema without exudates. No tonsilar hypertrophy without erythema or exudate. No palatine shift. Uvula midline. No tongue protrusion. No drooling, hoarseness, or airway compromise. Moist mucous membranes. No sinus tenderness. NECK: Normal range of motion, supple without lymphadenopathy. No rigidity/meningismus. LUNGS: b/l scant expiratory wheeze noted. No retractions HEART: Regular rate and rhythm without murmurs, rubs, gallops. ABDOMEN: Soft, nontender, nondistended abdomen. No guarding, no rebound. Normal bowel sounds present. No CVA tenderness bilaterally. NEUROLOGICAL: Normal speech, normal gait. Normal sensory, motor exams PSYCH: Normal mood, normal affect. SKIN: Warm, Dry, normal turgor, no rashes or lesions noted. - INFECTION CONTROL TRAVEL OUTSIDE OF THE [place] IN LAST 30 DAYS: No Course - Re-evaluation Re-evalutation: 08/04/18 15:25 Patient is an afebrile, well-hydrated, 62-year-old female who presents to the ED with acute URI, suspect viral. Vitals are acceptable. PE is otherwise unremarkable. No labs or imaging warranted at this time based on H&P. Pt given solumedrol and duoneb for her wheeze. Patient's lungs are clear to auscultation bilaterally after treatment without tachycardia, hypoxia, or tachypnea. Patient is tolerating p.o. without any difficulties. Low suspicion for any meningitis, sepsis, peritonsillar/pharyngeal abscess, respiratory compromise, severe dehydration, or other emergent systemic condition at this time. Patient is aware this condition can change from initial presentation and she needs to monitor symptoms closely. Rx for steroid med PO. Conservative measures otherwise for symptoms. Recheck with your PCM in 3-5 days. Return to the ED with any worsening/concerning symptoms otherwise as reviewed in discharge. Patient is in agreement. - Vital Signs Vital signs: Temp Pulse Resp BP Pulse Ox 98.0 F 62 20 144/93 H 95 08/04/18 14:37 08/04/18 14:37 08/04/18 14:37 08/04/18 14:37 08/04/18 14:37 Discharge - Discharge Clinical Impression: Acute URI, Wheezing Condition: Stable Disposition: HOME, SELF-CARE Additional Instructions: Maintain adequate fluid intake Take meds as directed tylenol/ibuprofen as needed over the counter cold medication as needed for symptoms Humidified air may help Wash your hands regularly Wear a mask when coughing F/u: with your PCM in 3-5 days for a recheck Return to the ED with any fever, worsening pain, chest pain, palpitations, syncope, worsening NELSON, neck pain/stiffness, shortness of breath, wheezing, drooling, trouble swallowing/breathing, abdominal pain, n/v/d, rash, or worsening/concerning symptoms otherwise. Prescriptions: Prednisone [Deltasone 20 mg Tablet] 3 tab PO DAILY 4 Days tablet Forms: Elevated Blood Pressure Referrals: ANNALEE MENDEZ MD [Primary Care Provider] - Follow up in 3-5 days
[2018-08-04] MEDS ORDERED: ACETAMINOPHEN 325 MG TABLET PO ONE (15:31)
== END 2018-08-04 15:44 | disposition home or self-care (01) ==
LOC: ER 14:30
DX: J06.9 Acute upper respiratory infection, unspecified (principal); R06.2 Wheezing; E78.00 Pure hypercholesterolemia, unspecified; I10 Essential (primary) hypertension; Z87.442 Personal history of urinary calculi; Z90.49 Acquired absence of other specified parts of digestive tract
CPT/HCPCS: 94640; 99283; 96372; J2930; J7620

== ENCOUNTER 2018-08-23 10:40 | Emergency (ER) | payer MEDICAID ==
[2018-08-23] MEDS ORDERED: METHYLPREDNISOLONE INJ 40 MG/1 ML SDV IM ONE (11:24)
[2018-08-23] MEDS ORDERED: IPRATROPIUM/ALBUTEROL 0.5-2.5 MG/3 ML AMPUL NEB ONE (11:24)
--- NOTE | 2018-08-23 11:25 | ER Document Report ---
ED General - General Chief Complaint: Shortness Of Breath Stated Complaint: WHEEZING Time Seen by Provider: 08/23/18 11:14 Primary Care Provider: ANNALEE MENDEZ MD [Primary Care Provider] - Follow up in 3-5 days Notes: Patient is a 62-year-old female asthma that presents to the emergency department for chief complaint of wheezing and shortness of breath. Patient states she has been having a cough and wheezing over the past 3 days, she was recently seen for similar symptoms and placed on albuterol inhaler, and given steroid, she did get some relief, but then her symptoms started flaring up again, she is been using the albuterol, last dose was last night, with some relief. She admits to having a productive sputum, that is green in color, denies having any chest pain associated, nausea, vomiting, fevers, chills, abdominal pain, headaches or lightheadedness. Past Medical History: Asthma, hypertension, depression Past Surgical History: Cholecystectomy Social History: Former smoker, denies alcohol or drug use. Family History: Reviewed and noncontributory for presenting illness Allergies: Reviewed, see documented allergy list. REVIEW OF SYSTEMS: Other than noted above, the 12 point review of systems was reviewed with the patient and were negative, all pertinent findings are included in the HPI. PHYSICAL EXAMINATION: Vital signs reviewed, nursing noted reviewed. GENERAL: Well-appearing, well-nourished and in no acute distress. HEAD: Atraumatic, normocephalic. EYES: Eyes appear normal, extraocular movements intact, sclera anicteric, conjunctiva are normal. ENT: nares patent, oropharynx clear without exudates. Moist mucous membranes. NECK: Normal range of motion, supple without lymphadenopathy LUNGS: Bilateral diffuse wheezing throughout all lung murguia, but no acute respiratory distress. HEART: Regular rate and rhythm without murmurs ABDOMEN: Soft, nontender, normoactive bowel sounds. No rebound, guarding, or rigidity. No masses appreciated. EXTREMITIES: Nontender, good range of motion, no pitting or edema. NEUROLOGICAL: No focal neurological deficits. Moves all extremities spontaneously Motor and sensory grossly intact on exam. PSYCH: Normal mood, normal affect. SKIN: Warm, Dry, normal turgor, no rashes or lesions noted on exposed skin TRAVEL OUTSIDE OF THE [place] IN LAST 30 DAYS: No - Related Data Allergies/Adverse Reactions: Penicillins Allergy (Mild, Verified 08/23/18 10:43) rash Past Medical History - Social History Smoking Status: Former Smoker Family History: Reviewed & Not Pertinent, Arthritis, CAD, CVA, Hyperlipidemia, Hypertension, Other Patient has suicidal ideation: No Patient has homicidal ideation: No - Past Medical History Cardiac Medical History: Reports: Hx Hypercholesterolemia, Hx Hypertension - medicated Denies: Hx Heart Attack Pulmonary Medical History: Neurological Medical History: Reports: Hx Migraine. Denies: Hx Seizures Renal/ Medical History: Reports: Hx Kidney Stones. Denies: Hx Peritoneal Dialysis GI Medical History: Denies: Hx Hiatal Hernia, Hx Ulcer Musculoskeletal Medical History: Reports Hx Musculoskeletal Deformity, Reports Hx Musculoskeletal Trauma Psychiatric Medical History: Reports: Hx Depression Infectious Medical History: Past Surgical History: Reports: Hx Cholecystectomy, Hx Kidney (Renal Surgery) - stent, tumor removed, Hx Orthopedic Surgery - Foot surgery to right great toe. Denies: Hx Hysterectomy, Hx Mastectomy, Hx Open Heart Surgery, Hx Pacemaker - Immunizations Hx Diphtheria, Pertussis, Tetanus Vaccination: No Physical Exam - Vital signs Vitals: Temp Pulse Resp BP Pulse Ox 98.8 F 65 18 170/93 H 97 08/23/18 10:49 08/23/18 10:49 08/23/18 10:49 08/23/18 10:49 08/23/18 10:49 Course - Re-evaluation Re-evalutation: Patient seen and examined vital signs reviewed. Laboratory data and imaging were ordered as appropriate for the patient's presenting symptoms and complaint, with consideration of any critical or life threatening conditions that may be associated with their obtained history and exam as noted above. Patient was treated with DuoNeb breathing treatments and IM Solu-Medrol Results were reviewed when available and demonstrated negative chest x-ray The patient was re-evaluated and was improved and stable Evaluation was most consistent with acute exacerbation of asthma, will discharge home on prednisone for 5 days, given spacer and advised to use her inhaler 2 p uffs every 4 hours and to follow-up with her primary care physician Results were discussed with the patient at this point, after careful consideration I feel that that patient can be discharged from the emergency department, the patient was educated treatments and reasons to return to the emergency department based on their presumed diagnosis as noted above, they were advised to followup with a primary care physician in 2-3 days. Patient was agreeable to plan of care. *Note is created using voice recognition software and may contain spelling, syntax or grammatical errors. Chest X-Ray 08/23/18 11:25 IMPRESSION: 1. No significant interval changes since the previous examination dated 06/26/2017. No acute findings. - Vital Signs Vital signs: Temp Pulse Resp BP Pulse Ox 98.8 F 65 18 170/93 H 97 08/23/18 10:49 08/23/18 10:49 08/23/18 10:49 08/23/18 10:49 08/23/18 10:49 Discharge - Discharge Clinical Impression: Acute asthma exacerbation Qualifiers: Asthma severity: unspecified severity Asthma persistence: unspecified Qualified Code(s): J45.901 - Unspecified asthma with (acute) exacerbation Condition: Stable Disposition: HOME, SELF-CARE Instructions: Asthma ([facility]) Additional Instructions: Please return to the emergency department if you have any worsening, or concern of your symptoms. Please return to the emergency department if you develop chest pain, difficulty breathing, severe abdominal pain, or ongoing vomiting. Please follow-up with your primary care physician in 2-3 days and any other recommended physicians. If prescribed, take all medications as directed. If you have any questions or concerns do not hesitate to return the emergency department for evaluation. Continue using the albuterol inhaler with the spacer 2 puffs every 4 hours, in addition to taking the prescribed steroid, please follow-up with your primary care physician. Prescriptions: Prednisone [Deltasone 20 mg Tablet] 2 tab PO DAILY 5 Days #10 tablet Referrals: ANNALEE MENDEZ MD [Primary Care Provider] - Follow up in 3-5 days
--- NOTE | 2018-08-23 12:34 | RADIOLOGY REPORT (SQ) ---
EXAM DESCRIPTION: CHEST 2 VIEWS COMPLETED DATE/TIME: 08/23/2018 12:23 pm REASON FOR STUDY: cough, sob COMPARISON: 06/26/2017 EXAM PARAMETERS: NUMBER OF VIEWS: two views TECHNIQUE: Digital Frontal and Lateral radiographic views of the chest acquired. RADIATION DOSE: NA LIMITATIONS: none FINDINGS: LUNGS AND PLEURA: No opacities, masses or pneumothorax. No pleural effusion. MEDIASTINUM AND HILAR STRUCTURES: No masses or contour abnormalities. HEART AND VASCULAR STRUCTURES: Heart normal size. No evidence for failure. BONES: No acute findings. HARDWARE: Anterior fusion mid lower cervical spine. OTHER: No other significant finding. IMPRESSION: 1. No significant interval changes since the previous examination dated 06/26/2017. No acute findings. TECHNICAL DOCUMENTATION: JOB ID: [id number] [employer]- All Rights Reserved Reading location - IP/workstation name: [email or web address]
[2018-08-23 12:48] VITALS: BP 162/89
== END 2018-08-23 12:50 | disposition home or self-care (01) ==
LOC: ER 10:40
DX: J45.901 Unspecified asthma with (acute) exacerbation (principal); R06.02 Shortness of breath; I10 Essential (primary) hypertension; Z87.891 Personal history of nicotine dependence; Z88.0 Allergy status to penicillin
CPT/HCPCS: 94640; 99284; 96372; 71046; J2920; J7620

== ENCOUNTER 2018-09-28 10:54 | Emergency (ER) | payer MEDICAID ==
[2018-09-28 11:06] VITALS: BP 191/120
--- NOTE | 2018-09-28 11:53 | ER Document Report ---
ED Medical Screen (RME) - General Chief Complaint: Dizziness Stated Complaint: HEADACHE Time Seen by Provider: 09/28/18 11:41 Primary Care Provider: ANNALEE MENDEZ MD [Primary Care Provider] - Follow up as needed Notes: Patient is a 62-year-old female with hypertension that presents to the emergency department for chief complaint of high blood pressure and headache. Patient reports that she was at her psychologist office today, and blood pressure was 174/110 and advised to come to the ED because she is complaining of headache and they are worried about this. She states recently she is been taking Tylenol Sinus and cold medications, and she has not missed doses of her blood pressure pills.. ROS: Other than noted above, the 12 point review of systems was reviewed with the patient and were negative, all pertinent findings are included in the HPI. PHYSICAL EXAMINATION: Vital signs reviewed. GENERAL: Well-appearing, well-nourished and in no acute distress. HEAD: Atraumatic, normocephalic. EYES: Pupils equal round extraocular movements intact, conjunctiva are normal. ENT: Nares patent NECK: Normal range of motion CV: Heart regular rate and rhythm LUNGS: No respiratory distress Musculoskeletal: Normal range of motion NEUROLOGICAL: Normal speech PSYCH: Normal mood, normal affect. MDM: Patient seen and examined for rapid initial assessment. Vital signs reviewed. A comprehensive ED assessment and evaluation of the patient, analysis of test results and completion of the medical decision making process will be conducted by additional ED providers. *Note is created using voice recognition software and may contain spelling, syntax or grammatical errors. TRAVEL OUTSIDE OF THE [place] IN LAST 30 DAYS: No - Related Data Allergies/Adverse Reactions: Penicillins Allergy (Mild, Verified 09/28/18 10:58) rash Past Medical History - Social History Frequency of alcohol use: None Drug Abuse: None - Past Medical History Cardiac Medical History: Reports: Hx Hypercholesterolemia, Hx Hypertension - medicated Denies: Hx Heart Attack Pulmonary Medical History: Neurological Medical History: Reports: Hx Migraine. Denies: Hx Seizures Renal/ Medical History: Reports: Hx Kidney Stones. Denies: Hx Peritoneal Dialysis GI Medical History: Denies: Hx Hiatal Hernia, Hx Ulcer Musculoskeltal Medical History: Reports Hx Musculoskeletal Deformity, Reports Hx Musculoskeletal Trauma Psychiatric Medical History: Reports: Hx Depression Infectious Medical History: Past Surgical History: Reports: Hx Cholecystectomy, Hx Kidney (Renal Surgery) - stent, tumor removed, Hx Orthopedic Surgery - Foot surgery to right great toe. Denies: Hx Hysterectomy, Hx Mastectomy, Hx Open Heart Surgery, Hx Pacemaker - Immunizations Hx Diphtheria, Pertussis, Tetanus Vaccination: No Physical Exam - Vital signs Vitals: Temp Pulse Resp BP Pulse Ox 97.7 F 57 L 16 191/120 H 99 09/28/18 11:04 09/28/18 11:04 09/28/18 11:04 09/28/18 11:04 09/28/18 11:04 Course - Vital Signs Vital signs: Temp Pulse Resp BP Pulse Ox 97.7 F 57 L 16 191/120 H 99 09/28/18 11:04 09/28/18 11:04 09/28/18 11:04 09/28/18 11:04 09/28/18 11:04 - Laboratory Result Diagrams: 09/28/18 12:05 09/28/18 12:05 Laboratory results interpreted by me: 09/28/18 12:05 MCV 79 L RDW 15.7 H Lymphocytes % 47.1 H Doctor's Discharge - Discharge Referrals: ANNALEE MENDEZ MD [Primary Care Provider] - Follow up as needed
[2018-09-28] MEDS ORDERED: ACETAMINOPHEN 325 MG TABLET PO ONE (12:10)
[2018-09-28 12:42] LABS: ABSOLUTE BASOPHILS # (AUTO) 0.1 10^3/uL (0.0-0.2); ABSOLUTE EOSINOPHILS # (AUTO) 0.1 10^3/uL (0.0-0.6); ABSOLUTE LYMPHOCYTES (AUTO) 2.4 10^3/uL (0.5-4.7); ABSOLUTE MONOCYTES (AUTO) 0.3 10^3/uL (0.1-1.4); ABSOLUTE NEUT (AUTO) 2.2 10^3/uL (1.7-8.2); BASOPHILS % (AUTO) 1.1 % (0-2); EOSINOPHILS % (AUTO) 2.9 % (0-6); HEMATOCRIT 38.7 % (36.0-47.0); HEMOGLOBIN 13.5 g/dL (12.0-15.5); LYMPHOCYTES % (AUTO) 47.1 % (13-45); MEAN CORPUSCULAR HEMOGLOBIN 27.7 pg (27.0-33.4); MEAN CORPUSCULAR VOLUME 79 fl (80-97); MONOCYTES % (AUTO) 5.8 % (3-13); PLATELET COUNT 201 10^3/uL (150-450); RED BLOOD COUNT 4.89 10^6/uL (3.72-5.28); RED CELL DISTRIBUTION WIDTH 15.7 % (11.5-14.0); SEGMENTED NEUTROPHILS % (AUTO) 43.1 % (42-78); TOTAL CELLS COUNTED % (AUTO) 100 %
[2018-09-28 13:02] LABS: ALANINE AMINOTRANSFERASE 40 U/L (9-52); ALKALINE PHOSPHATASE 86 U/L (38-126); ANION GAP 7 (5-19); ASPARTATE AMINO TRANSFERASE 31 U/L (14-36); BILIRUBIN,DIRECT 0.2 mg/dL (0.0-0.4); BILIRUBIN,TOTAL 0.4 mg/dL (0.2-1.3); BLOOD UREA NITROGEN 13 mg/dL (7-20); CALCIUM 8.7 mg/dL (8.4-10.2); CARBON DIOXIDE 30 mmol/L (22-30); CHLORIDE 102 mmol/L (98-107); GLUCOSE 83 mg/dL (75-110); POTASSIUM 4.1 mmol/L (3.6-5.0); SODIUM 139.2 mmol/L (137-145); TOTAL PROTEIN 7.1 g/dL (6.3-8.2)
--- NOTE | 2018-09-28 21:52 | EKG REPORT ---
SEVERITY:- ABNORMAL ECG - SINUS RHYTHM BORDERLINE T ABNORMALITIES, DIFFUSE LEADS : Confirmed by: Ann Reyez MD 28-Sep-2018 21:52:16
== END 2018-09-28 13:10 | disposition left against medical advice (07) ==
LOC: ER 10:54
DX: Z53.21 Procedure and treatment not carried out due to patient leaving prior to being seen by health care provider (principal); R42 Dizziness and giddiness; R51 Headache; I10 Essential (primary) hypertension; Z79.899 Other long term (current) drug therapy
CPT/HCPCS: 93005; 99281; 36415; 85025; 80053; 84484; 93010; J3490

== ENCOUNTER 2019-05-03 10:08 | Emergency (ER) | payer MEDICAID ==
[2019-05-03 10:13] VITALS: BP 158/82
--- NOTE | 2019-05-03 11:56 | ER Document Report ---
HPI - HPI Time Seen by Provider: 05/03/19 10:43 Pain Level: 3 Context: Patient is a 63-year-old female presents emergency department with a chief complaint of her right second toe pain. Patient states that it started hurting yesterday morning. Denies any trauma to the area. Patient states that she ripped a piece of her toenail off and since then she has had pain. Describes her pain as a "toothache feeling" in her toe. She is able to walk on it, but states it hurts when she does. - ROS Systems Reviewed and Negative: Yes All other systems reviewed and negative - REPRODUCTIVE Reproductive: DENIES: : - MUSCULOSKELETAL Musculoskeletal: REPORTS: Extremity pain - right 2nd toe Past Medical History - Social History Smoking Status: Never Smoker Chew tobacco use (# tins/day): No Frequency of alcohol use: Rare Family History: Reviewed & Not Pertinent, Arthritis, CAD, CVA, Hyperlipidemia, Hypertension, Other Patient has suicidal ideation: No Patient has homicidal ideation: No - Past Medical History Cardiac Medical History: Reports: Hx Hypercholesterolemia, Hx Hypertension - medicated Denies: Hx Heart Attack Pulmonary Medical History: Reports: Hx Asthma Neurological Medical History: Reports: Hx Migraine. Denies: Hx Seizures Renal/ Medical History: Reports: Hx Kidney Stones. Denies: Hx Peritoneal Dialysis GI Medical History: Denies: Hx Hiatal Hernia, Hx Ulcer Musculoskeletal Medical History: Reports Hx Arthritis, Reports Hx Musculoskeletal Deformity, Reports Hx Musculoskeletal Trauma Psychiatric Medical History: Reports: Hx Depression - ANXIETY Infectious Medical History: Past Surgical History: Reports: Hx Cholecystectomy, Hx Kidney (Renal Surgery) - stent, tumor removed, Hx Orthopedic Surgery - Foot surgery to right great toe. Denies: Hx Hysterectomy, Hx Mastectomy, Hx Open Heart Surgery, Hx Pacemaker - Immunizations Hx Diphtheria, Pertussis, Tetanus Vaccination: No Vertical Provider Document - CONSTITUTIONAL Agree With Documented VS: Yes General Appearance: No Apparent Distress - INFECTION CONTROL TRAVEL OUTSIDE OF THE [place] IN LAST 30 DAYS: No - HEENT HEENT: Atraumatic - MUSCULOSKELETAL/EXTREMETIES Musculoskeletal/Extremeties: FROM, Tender - Right second toe, No Edema - NEURO Level of Consciousness: Awake, Alert, Appropriate Motor/Sensory: No Motor Deficit, No Sensory Deficit - DERM Integumentary: Warm, Dry, Abscess - Possible under her right second toenail. Unable to distinguish at this time. Course - Re-evaluation Re-evalutation: 05/03/19 Patient's toe x-ray does not show osteomyelitis. I suspect the patient most likely has the start of the paronychia in her right second toe. At this time, it does not look like anything that is drainable. I have referred her to pod iatry to have a full evaluation of her foot. At this time she will be placed on clindamycin to cover possible MRSA. She also received Camargo to go home with for pain relief until she is able to see podiatry. She is in agreement with this plan. Follow-up precautions were given. Verbal discharge instructions were given to the patient. They verbalized understanding. They are stable for discharge. - Vital Signs Vital signs: Temp Pulse Resp BP Pulse Ox 98.1 F 61 16 158/82 H 95 05/03/19 10:12 05/03/19 10:12 05/03/19 10:12 05/03/19 10:12 05/03/19 10:12 Discharge - Discharge Clinical Impression: Toe pain, right Condition: Stable Disposition: HOME, SELF-CARE Additional Instructions: You were seen today in the emergency department for right second toe pain. Please make an appointment with the foot doctor tomorrow. Call them today to make the appointment. You are being started on antibiotics. Please take all your antibiotics as prescribed. You are also being sent home with pain medication please use this sparingly. If you have worsening symptoms, please return to the emergency department. Prescriptions: Clindamycin HCl [Cleocin 150 mg Capsule] 300 mg PO Q6 7 Days #56 capsule Hydrocodone/Acetaminophen [Camargo 5-325 mg Tablet] 1 tab PO ASDIR PRN #15 tablet PRN Reason: Referrals: ANNALEE MENDEZ MD [Primary Care Provider] - Follow up as needed [facility] [Provider Group] - Follow up tomorrow
--- NOTE | 2019-05-03 12:02 | RADIOLOGY REPORT (SQ) ---
EXAM DESCRIPTION: TOE RIGHT COMPLETED DATE/TIME: 05/03/2019 11:51 am REASON FOR STUDY: toe pain COMPARISON: AP and lateral views of the right foot from 02/01/2019. NUMBER OF VIEWS: Three views. TECHNIQUE: AP, lateral, and oblique images acquired of the right second toe. LIMITATIONS: None. FINDINGS: MINERALIZATION: Normal. BONES: The periprosthetic lucencies around the 1st MTP arthrodesis hardware are unchanged. There is no periprosthetic fracture. There are prominent inferior osteophytes at the 2nd PIP joint. The 3rd P IP joint space is effaced. JOINTS: The tarsometatarsal alignment is preserved. SOFT TISSUES: No soft tissue or subcutaneous emphysema. OTHER: No erosions. IMPRESSION: 1. 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 2. Unchanged periprosthetic lucencies around the 1st MTP arthrodesis hardware. 3. No fracture. COMMENT: SITE OF TRAUMA/COMPLAINT MARKED/STAMP COMPLETED: YES. TECHNICAL DOCUMENTATION: JOB ID: [id number] [employer]- All Rights Reserved Reading location - IP/workstation name: [email or web address]
[2019-05-03] MEDS ORDERED: HYDROCODONE/ACETAMINOPHEN 5-325 MG TABLET PO ONE (12:32)
[2019-05-03] MEDS ORDERED: CLINDAMYCIN HCL 150 MG CAPSULE PO ONE (12:32)
== END 2019-05-03 12:44 | disposition home or self-care (01) ==
LOC: ER 10:08
DX: M79.674 Pain in right toe(s) (principal); E78.00 Pure hypercholesterolemia, unspecified; I10 Essential (primary) hypertension; Z90.49 Acquired absence of other specified parts of digestive tract; Z87.442 Personal history of urinary calculi
CPT/HCPCS: 99283; 73660; J3490

== ENCOUNTER 2019-05-19 13:47 | Emergency (ER) | payer MEDICAID ==
[2019-05-19 14:07] VITALS: BP 164/96
--- NOTE | 2019-05-19 14:25 | ER Document Report ---
HPI - HPI Time Seen by Provider: 05/19/19 14:13 Pain Level: 1 Context: Patient is a 63-year-old female who presents to the emergency department with chief complaint of right ear pain. Patient reports over the past 2 days she is noticed a movement type feeling to her right inner ear. She feels like there is a bug in her ear. Patient reports the pain is worse at night. Patient reports she is attempted to use a Q-tip to get this out but without relief. Patient re ports her ear is very tender on the inside. Patient denies drainage from the ear. - REPRODUCTIVE Reproductive: DENIES: : Past Medical History - General Information source: Patient - Social History Smoking Status: Never Smoker Chew tobacco use (# tins/day): No Frequency of alcohol use: Occasional Drug Abuse: None Lives with: Family Family History: Reviewed & Not Pertinent, Arthritis, CAD, CVA, Hyperlipidemia, Hypertension, Other Patient has suicidal ideation: No Patient has homicidal ideation: No - Past Medical History Cardiac Medical History: Reports: Hx Hypercholesterolemia, Hx Hypertension - medicated Denies: Hx Heart Attack Pulmonary Medical History: Reports: Hx Asthma EENT Medical History: Reports: None Neurological Medical History: Reports: Hx Migraine. Denies: Hx Seizures Endocrine Medical History: Reports: None Renal/ Medical History: Reports: Hx Kidney Stones. Denies: Hx Peritoneal Dialysis Malignancy Medical History: Reports: None GI Medical History: Reports: None. Denies: Hx Hiatal Hernia, Hx Ulcer Musculoskeletal Medical History: Reports Hx Arthritis, Reports Hx Musculoskeletal Deformity, Reports Hx Musculoskeletal Trauma Skin Medical History: Reports None Psychiatric Medical History: Reports: Hx Depression - ANXIETY Traumatic Medical History: Reports: None Infectious Medical History: Reports: None Past Surgical History: Reports: Hx Cholecystectomy, Hx Kidney (Renal Surgery) - stent, tumor removed, Hx Orthopedic Surgery - Foot surgery to right great toe. Denies: Hx Hysterectomy, Hx Mastectomy, Hx Open Heart Surgery, Hx Pacemaker - Immunizations Hx Diphtheria, Pertussis, Tetanus Vaccination: No Vertical Provider Document - CONSTITUTIONAL Agree With Documented VS: Yes Exam Limitations: No Limitations General Appearance: No Apparent Distress - INFECTION CONTROL TRAVEL OUTSIDE OF THE [place] IN LAST 30 DAYS: No - HEENT HEENT: Atraumatic, Normocephalic, PERRLA Notes: Foreign body noted within the ear canal of the right ear. I am unable to determine if this is a large ball of cerumen removed or a insect. There is no movement from the foreign body. TM is easily visualized, pearly alonso with visual pole landmarks. No erythema or bulging noted to the TM. - NECK Neck: Normal Inspection - RESPIRATORY Respiratory: Breath Sounds Normal, No Respiratory Distress - CARDIOVASCULAR Cardiovascular: Regular Rate, Regular Rhythm - GI/ABDOMEN Gastrointestinal: Abdomen Soft, Abdomen Non-Tender, Normal Bowel Sounds - MUSCULOSKELETAL/EXTREMETIES Musculoskeletal/Extremeties: FROM, Non-Tender - NEURO Level of Consciousness: Awake, Alert, Appropriate - DERM Integumentary: Warm, Dry, No Rash Course - Re-evaluation Re-evalutation: 05/19/19 14:25 We will perform gentle right ear irrigation. The foreign body is extremely close to the TM. 05/19/19 14:48 Gentle irrigation was performed to the right ear. 2 large pieces of black substance was removed from the ear. I did look at the ear closely afterwards there was no foreign body. Foreign body does not appear to be an insect. TM was intact after irrigation. Foreign body removed. - Vital Signs Vital signs: Temp Pulse Resp BP Pulse Ox 97.9 F 70 18 164/96 H 100 05/19/19 14:05 05/19/19 14:05 05/19/19 14:05 05/19/19 14:05 05/19/19 14:05 Discharge - Discharge Clinical Impression: Foreign body in right ear Qualifiers: Encounter type: initial encounter Qualified Code(s): T16.1XXA - Foreign body in right ear, initial encounter Condition: Stable Disposition: HOME, SELF-CARE Additional Instructions: *Today you are seen in emergency department for foreign body to the right ear. We did gently irrigate the right ear canal and removed the foreign body. The foreign body did not appear to be an insect. I am unsure what the foreign body was. Your does not appear to be infected. You may have some irritation and minor discomfort to the ear over the next few days. Foreign Object in the Ear Examination showed a foreign object in the ear. This can cause pain, swelling, infection, and decreased hearing. An ear foreign body should be remov ed promptly. Usually no further treatment is necessary following removal. If infection is already present, we prescribe antibiotic drops. Sometimes the object damages the eardrum. If hearing is not normal, or if an obvious injury was seen, another checkup is necessary. If there is continued drainage, continued earache, fever, headache, or hearing loss, come back for reexamination. Referrals: ANNALEE MENDEZ MD [Primary Care Provider] - Follow up as needed
== END 2019-05-19 15:01 | disposition home or self-care (01) ==
LOC: ER 13:47
DX: T16.1XXA Foreign body in right ear, initial encounter (principal); H92.01 Otalgia, right ear; X58.XXXA Exposure to other specified factors, initial encounter; E78.00 Pure hypercholesterolemia, unspecified; I10 Essential (primary) hypertension; Z87.442 Personal history of urinary calculi; Z90.49 Acquired absence of other specified parts of digestive tract

== ENCOUNTER 2019-06-03 13:43 | Emergency (ER) | payer MEDICAID ==
[2019-06-03 13:47] VITALS: BP 168/91
--- NOTE | 2019-06-03 14:19 | ER Document Report ---
ED ENT - General Chief Complaint: Cold Symptoms Stated Complaint: ASTHMA/COUGH Time Seen by Provider: 06/03/19 14:10 Primary Care Provider: ANNALEE MENDEZ MD [Primary Care Provider] - Follow up as needed Mode of Arrival: Ambulatory Information source: Patient Notes: 63-year-old female presented to ED for cough cold nasal drainage. She does have a history of asthma and is on Symbicort for her asthma. She states sometimes when she is coughing her chest feels a little tight but not otherwise. She does have a doctor Dr. Mendez and I have instructed to follow-up with him on Thursday. TRAVEL OUTSIDE OF THE [place] IN LAST 30 DAYS: No - HPI Patient complains to provider of: Nose problem Onset: Yesterday Onset/Duration: Gradual Quality of pain: Other - States she has some pain when she coughs Severity: Mild Pain Level: 1 Context: Recent Illness Location of pain: Nose, Sinus Associated symptoms: Congestion, Cough, Ear pain, Runny nose, Sinus pain, Sinus drainage Similar symptoms previously: Yes Recently seen / treated by doctor: No - Related Data Allergies/Adverse Reactions: Penicillins Allergy (Mild, Verified 06/03/19 14:09) rash Past Medical History - General Information source: Patient - Social History Smoking Status: Former Smoker Frequency of alcohol use: None Drug Abuse: None Lives with: Family Family History: Reviewed & Not Pertinent, Arthritis, CAD, CVA, Hyperlipidemia, Hypertension, Other Patient has suicidal ideation: No Patient has homicidal ideation: No - Past Medical History Cardiac Medical History: Reports: Hx Hypercholesterolemia, Hx Hypertension - medicated Pulmonary Medical History: Reports: Hx Asthma EENT Medical History: Reports: None Neurological Medical History: Reports: Hx Migraine. Denies: Hx Seizures Endocrine Medical History: Reports: None Renal/ Medical History: Reports: Hx Kidney Stones Malignancy Medical History: Reports: None GI Medical History: Reports: None Musculoskeletal Medical History: Reports Hx Arthritis, Reports Hx Musculoskeletal Deformity, Reports Hx Musculoskeletal Trauma Skin Medical History: Reports None Psychiatric Medical History: Reports: Hx Depression - ANXIETY Traumatic Medical History: Reports: None Infectious Medical History: Reports: None Past Surgical History: Reports: Hx Cholecystectomy, Hx Kidney (Renal Surgery) - stent, tumor removed, Hx Orthopedic Surgery - Foot surgery to right great toe - Immunizations Hx Diphtheria, Pertussis, Tetanus Vaccination: No Review of Systems - Review of Systems Constitutional: No symptoms reported EENT: Nose congestion, Nose discharge, Sinus pressure, Sinus discharge Cardiovascular: No symptoms reported Respiratory: Cough, Other - States she has pain when she coughs Gastrointestinal: No symptoms reported Genitourinary: No symptoms reported Female Genitourinary: No symptoms reported Musculoskeletal: No symptoms reported Skin: No symptoms reported Hematologic/Lymphatic: No symptoms reported Neurological/Psychological: No symptoms reported -: Yes All other systems reviewed and negative Physical Exam - Vital signs Vitals: Temp Pulse Resp BP Pulse Ox 97.9 F 62 28 H 168/91 H 96 06/03/19 13:46 06/03/19 13:46 06/03/19 13:46 06/03/19 13:46 06/03/19 13:46 Interpretation: Normal - General General appearance: Appears well, Alert - HEENT Head: Normocephalic, Atraumatic Eyes: Normal Pupils: PERRL Ears: Normal External canal: Normal Tympanic membrane: Normal Sinus: Normal Nasal: Purulent discharge, Swelling Mouth/Lips: Normal Mucous membranes: Normal Pharynx: Post nasal drainage Neck: Normal - Respiratory Respiratory status: No respiratory distress Chest status: Nontender Breath sounds: Nonproductive cough. No: Rales, Rhonchi, Stridor, Wheezing Chest palpation: Normal - Cardiovascular Rhythm: Regular Heart sounds: Normal auscultation Murmur: No - Abdominal Inspection: Normal Distension: No distension Bowel sounds: Normal Tenderness: Nontender Organomegaly: No organomegaly - Back Back: Normal, Nontender - Extremities General upper extremity: Normal inspection, Nontender, Normal color, Normal ROM, Normal temperature General lower extremity: Normal inspection, Nontender, Normal color, Normal ROM, Normal temperature, Normal weight bearing. No: Kvng's sign - Neurological Neuro grossly intact: Yes Cognition: Normal Orientation: AAOx4 [place] Coma Scale Eye Opening: Spontaneous Raquel Coma Scale Verbal: Oriented [place]le Coma Scale Motor: Obeys Commands Raquel Coma Scale Total: 15 Speech: Normal Motor strength normal: LUE, RUE, LLE, RLE Sensory: Normal - Psychological Associated symptoms: Normal affect, Normal mood - Skin Skin Temperature: Warm Skin Moisture: Dry Skin Color: Normal Course - Re-evaluation Re-evalutation: 06/03/19 14:23 After performing a Medical Screening Examination, I estimate there is LOW risk for ACUTE CORONARY SYNDROME, RESPIRATORY FAILURE, SEPSIS OR MENINGITIS, thus I consider the discharge disposition reasonable. I have reevaluated this patient multiple times and no significant life threatening changes are noted. The patient and I have discussed the diagnosis and risks, and we agree with discharging home with close follow-up. We also discussed returning to the Emergency Department immediately if new or worsening symptoms occur. We have discussed the symptoms which are most concerning (e.g., changing or worsening pain, trouble swallowing or breathing, neck stiffness, fever) that necessitate immediate return. - Vital Signs Vital signs: Temp Pulse Resp BP Pulse Ox 97.9 F 62 28 H 168/91 H 96 06/03/19 13:46 06/03/19 13:46 06/03/19 13:46 06/03/19 13:46 06/03/19 13:46 Discharge - Discharge Clinical Impression: URI (upper respiratory infection) Qualifiers: URI type: unspecified viral URI Qualified Code(s): J06.9 - Acute upper respiratory infection, unspecified Condition: Stable Disposition: HOME, SELF-CARE Additional Instructions: UPPER RESPIRATORY ILLNESS: You have a viral infection of the respiratory passages -- a "cold." This common infection causes nasal congestion, drainage, and often sore throat and cough. It is highly contagious. The disease usually lasts about 10 to 14 days. There is no "cure" for the viral infection -- it must run its course. If there is a complication, such as bacterial infection in the nose, sinuses, middle ear, or bronchial tubes, antibiotics may be required. The antibiotics won't affect the virus. Drink plenty of fluids. A humidifier may help. An expectorant medication or decongestant may make you more comfortable. Use acetaminophen or ibuprofen for fever or aches. See the doctor if fever persists over two days, if there is any significant worsening of your symptoms, or if you simply fail to improve as expected. COUGH-SUPPRESSANT & EXPECTORANT MEDICATION: You are to use a cough medication as needed for relief of symptoms. This medicine is a combination of an expectorant (to make the mucous thinner and more easily "coughed up") and a cough suppressant (to reduce the frequency of coughing). The cough-suppressant medicine is related to narcotics. You may experience mild nausea and sleepiness. Some patients who are very sensitive to narcotics may have stomach pain from this medicine. Taking the medicine with food reduces these side effects. Do not drive or work with machinery until you know how this medicine affects you. The expectorant should have no side effects. Iodine-containing expectorants (such as organidin) should not be taken by persons with active thyroid disease unless approved by your doctor. Call the doctor if you develop shortness of breath, hives, rash, itching, lightheadedness, or severe nausea and vomiting. USE OF ACETAMINOPHEN (Tylenol): Acetaminophen may be taken for pain relief or fever control. It's much safer than aspirin, offering a wider range of "safe" dosages. It is safe during . Some brand names are Tylenol, Panadol, Datril, Anacin 3, Tempra, and Liquiprin. Acetaminophen can be repeated every four hours. The following are maximum recommended dosages: >89 pounds or adults 650 mg to 900 mg Acetaminophen can be repeated every four hours. Maximum dose not to exceed 4000 mg a day. Use Coricidin HBP which is [id number] for your cough and cold symptoms. You can also use salt and soda solution for you to remove the drainage from the back your throat. Flonase nasal spray can also be used for your symptoms. This will decrease the drainage and swelling in your nose. The reason your cough and is then postnasal drip back to the back of your throat. Salt and soda solution 1 quart of water 1 tablespoon of salt 1 teaspoon of baking soda Mixed 3 ingredients together and boil for 1 minute Placed in a covered quart jar Use 1/2 ounce of cold solution to gargle 3 times a day FOLLOW-UP CARE: If you have been referred to a physician for follow-up care, call the physicians office for an appointment as you were instructed or within the next two days. If you experience worsening or a significant change in your symptoms, notify the physician immediately or return to the Emergency Department at any time for re-evaluation. Forms: Elevated Blood Pressure Referrals: ANNALEE MENDEZ MD [Primary Care Provider] - Follow up in 3-5 days
== END 2019-06-03 14:23 | disposition home or self-care (01) ==
LOC: ER 13:43
DX: J06.9 Acute upper respiratory infection, unspecified (principal); B97.89 Other viral agents as the cause of diseases classified elsewhere; R05 Cough; H92.09 Otalgia, unspecified ear; R09.81 Nasal congestion; J34.89 Other specified disorders of nose and nasal sinuses; R09.82 Postnasal drip; I10 Essential (primary) hypertension; Z87.891 Personal history of nicotine dependence; Z88.0 Allergy status to penicillin
CPT/HCPCS: 99283

== ENCOUNTER 2019-06-27 16:18 | Emergency (ER) | payer MEDICAID ==
[2019-06-27] MEDS ORDERED: IPRATROPIUM/ALBUTEROL 0.5-2.5 MG/3 ML AMPUL NEB ONE (16:38)
--- NOTE | 2019-06-27 16:40 | ER Document Report ---
ED Medical Screen (RME) - General Chief Complaint: Neck Swelling Stated Complaint: NECK/THROAT SWELLING Time Seen by Provider: 06/27/19 16:30 Primary Care Provider: ANNALEE MENDEZ MD [Primary Care Provider] - Follow up as needed Notes: 63-year-old female with history of asthma and poor dentition presents to the emergency department for neck swelling. Patient was supposed to have dental work done last Thursday but her blood pressure was too high so they canceled the procedures until August. She woke up this morning and noticed swelling underneath her jaw. No fevers or chills, no tender lymph node, airway is patent and she denies any stridor or sensation of her airway closing. Patient is also complaining of cough and shortness of breath she thinks is secondary to her asthma Exam: Well-appearing in no acute distress, she is missing her bottom teeth and there was a small amount of purulence in the buccal side of the right lower gumline, airway is patent. There is some very mild end expiratory wheezing with good air exchange I have greeted and performed a rapid initial assessment of this patient. A comprehensive ED assessment and evaluation of the patient, analysis of test results and completion of medical decision making process will be conducted by an additional ED providers. TRAVEL OUTSIDE OF THE [place] IN LAST 30 DAYS: No - Related Data Allergies/Adverse Reactions: Penicillins Allergy (Mild, Verified 06/27/19 16:26) rash Home Medications: B/P. Depression Past Medical History - Social History Chew tobacco use (# tins/day): No Drug Abuse: None - Past Medical History Cardiac Medical History: Reports: Hx Hypercholesterolemia, Hx Hypertension - medicated Denies: Hx Heart Attack Pulmonary Medical History: Reports: Hx Asthma Neurological Medical History: Reports: Hx Migraine. Denies: Hx Seizures Renal/ Medical History: Reports: Hx Kidney Stones. Denies: Hx Peritoneal Dialysis GI Medical History: Denies: Hx Hiatal Hernia, Hx Ulcer Musculoskeltal Medical History: Reports Hx Arthritis, Reports Hx Musculoskeletal Deformity, Reports Hx Musculoskeletal Trauma Psychiatric Medical History: Reports: Hx Depression - ANXIETY Infectious Medical History: Past Surgical History: Reports: Hx Cholecystectomy, Hx Kidney (Renal Surgery) - stent, tumor removed, Hx Orthopedic Surgery - Foot surgery to right great toe. Denies: Hx Hysterectomy, Hx Mastectomy, Hx Open Heart Surgery, Hx Pacemaker - Immunizations Hx Diphtheria, Pertussis, Tetanus Vaccination: No Physical Exam - Vital signs Vitals: Temp Pulse Resp BP Pulse Ox 97.9 F 51 L 18 184/98 H 96 06/27/19 16:23 06/27/19 16:23 06/27/19 16:23 06/27/19 16:23 06/27/19 16:23 Course - Vital Signs Vital signs: Temp Pulse Resp BP Pulse Ox 97.9 F 51 L 18 184/98 H 96 06/27/19 16:27 06/27/19 16:23 06/27/19 16:27 06/27/19 16:23 06/27/19 16:27 Doctor's Discharge - Discharge Referrals: ANNALEE MENDEZ MD [Primary Care Provider] - Follow up as needed
[2019-06-27 17:05] LABS: ABSOLUTE BASOPHILS # (AUTO) 0.1 10^3/uL (0.0-0.2); ABSOLUTE EOSINOPHILS # (AUTO) 0.1 10^3/uL (0.0-0.6); ABSOLUTE LYMPHOCYTES (AUTO) 2.3 10^3/uL (0.5-4.7); ABSOLUTE MONOCYTES (AUTO) 0.3 10^3/uL (0.1-1.4); ABSOLUTE NEUT (AUTO) 2.2 10^3/uL (1.7-8.2); BASOPHILS % (AUTO) 1.6 % (0-2); HEMATOCRIT 37.8 % (36.0-47.0); LYMPHOCYTES % (AUTO) 46.4 % (13-45); MEAN CORPUSCULAR HEMOGLOBIN 27.4 pg (27.0-33.4); MEAN CORPUSCULAR HGB CONC 34.4 g/dL (32.0-36.0); MEAN CORPUSCULAR VOLUME 80 fl (80-97); MONOCYTES % (AUTO) 6.1 % (3-13); PLATELET COUNT 221 10^3/uL (150-450); RED BLOOD COUNT 4.75 10^6/uL (3.72-5.28); RED CELL DISTRIBUTION WIDTH 15.5 % (11.5-14.0); SEGMENTED NEUTROPHILS % (AUTO) 43.9 % (42-78); TOTAL CELLS COUNTED % (AUTO) 100 %
[2019-06-27 17:25] LABS: ALKALINE PHOSPHATASE 92 U/L (38-126); ANION GAP 11 (5-19); ASPARTATE AMINO TRANSFERASE 44 U/L (14-36); BILIRUBIN,DIRECT 0.4 mg/dL (0.0-0.4); BILIRUBIN,TOTAL 0.6 mg/dL (0.2-1.3); BLOOD UREA NITROGEN 17 mg/dL (7-20); CALCIUM 8.9 mg/dL (8.4-10.2); CARBON DIOXIDE 25 mmol/L (22-30); CHLORIDE 102 mmol/L (98-107); GLUCOSE 127 mg/dL (75-110); POTASSIUM 4.4 mmol/L (3.6-5.0); TOTAL PROTEIN 7.3 g/dL (6.3-8.2)
--- NOTE | 2019-06-27 17:28 | ER Document Report ---
ED General - General Chief Complaint: Neck Swelling Stated Complaint: NECK/THROAT SWELLING Time Seen by Provider: 06/27/19 16:30 Primary Care Provider: ANNALEE MENDEZ MD [Primary Care Provider] - Follow up as needed TRAVEL OUTSIDE OF THE [place] IN LAST 30 DAYS: No - Related Data Allergies/Adverse Reactions: Penicillins Allergy (Mild, Verified 06/27/19 16:26) rash Home Medications: B/P. Depression Past Medical History - Social History Smoking Status: Never Smoker Chew tobacco use (# tins/day): No Drug Abuse: None Family History: Reviewed & Not Pertinent, Arthritis, CAD, CVA, Hyperlipidemia, Hypertension, Other Patient has suicidal ideation: No Patient has homicidal ideation: No - Past Medical History Cardiac Medical History: Reports: Hx Hypercholesterolemia, Hx Hypertension - medicated Denies: Hx Heart Attack Pulmonary Medical History: Reports: Hx Asthma Neurological Medical History: Reports: Hx Migraine. Denies: Hx Seizures Renal/ Medical History: Reports: Hx Kidney Stones. Denies: Hx Peritoneal Dialysis GI Medical History: Denies: Hx Hiatal Hernia, Hx Ulcer Musculoskeletal Medical History: Reports Hx Arthritis, Reports Hx Musculoskeletal Deformity, Reports Hx Musculoskeletal Trauma Psychiatric Medical History: Reports: Hx Depression - ANXIETY Infectious Medical History: Past Surgical History: Reports: Hx Cholecystectomy, Hx Kidney (Renal Surgery) - stent, tumor removed, Hx Orthopedic Surgery - Foot surgery to right great toe. Denies: Hx Hysterectomy, Hx Mastectomy, Hx Open Heart Surgery, Hx Pacemaker - Immunizations Hx Diphtheria, Pertussis, Tetanus Vaccination: No Physical Exam - Vital signs Vitals: Temp Pulse Resp BP Pulse Ox 97.9 F 51 L 18 184/98 H 96 06/27/19 16:23 06/27/19 16:23 06/27/19 16:23 06/27/19 16:23 06/27/19 16:23 - Notes Notes: Patient presents emerged department complaint of swelling underneath her chin going on for the past 2 days. His voice is a little raspy but she is not have any difficulty swallowing. She is also complaining of a cough and congestion for 2 days. No chest pain or shortness of breath associated with this. No fevers. Inhaler twice a day which seems to help with the cough His medical history significant for hypertension and asthma. She has poor dentition rest reschedule see a dentist this week for dental extraction but they canceled it because of elevated blood pressure no diabetes Social history she does not smoke or drink at all Review of systems pertinent positives and negatives in HPI otherwise all the systems were reviewed and acutely negative PHYSICIAN EXAM -vital signs are noted triage note and note from triage reviewed GENERAL: Well-appearing, well-nourished and in no acute distress HEAD: Atraumatic, normocephalic. EYES: Pupils equal round and reactive to light, extraocular movements intact, sclera anicteric, conjunctiva are normal. ENT: nares patent, oropharynx clear without exudates. Moist mucous membranes. She has poor dentition with only few teeth in the upper alveolar ridge. She is got caries involving #13 with a questionable small abscess there is no teeth on the lower alveolar ridge. Is patent airway there is no trismus handling secretions well. Tongue is not swollen but there is some under the tongue in the submental area. She has some shotty anterior nodes there is no swelling of the face and the face is nontender NECK: supple with shotty anterior nodes no meningeal signs LUNGS: Breath sounds clear to auscultation bilaterally and equal. No wheezes rales or rhonchi. Patient received a breathing treatment. Triage note reported that she had occasional wheeze HEART: Regular rate and rhythm without murmurs ABDOMEN: Soft, nontender, normoactive bowel sounds. EXTREMITIES: No deformity, no edema. No palpable cords NEUROLOGICAL: No focal neurological deficits. Moves all extremities spontaneously and on command. PSYCH: Normal mood, normal affect. SKIN: Warm, Dry, normal turgor, no rashes or lesions noted. BACK-nontender in the midline Differential diagnosis was abscess tracheitis Course - Re-evaluation Re-evalutation: 06/27/19 18:41 ED is remained stable she was given antibiotics and steroids as well as 1 DuoNeb treatment. Exam she says that she is feeling better swelling seems to have decreased and she says voice sounds better Decision-making patient presents with a cough and congestion for 2 days with some mild wheezing probably has an exacerbation of her asthma. He looks well can be discharged home do not think she needs a chest x-ray. Will increase the frequency of her aerosol treatments prednisone. He reports that she saw her family doctor in the beginning of the month and he put her on a new medication for blood pressure but blood pressure still elevated so she will need follow-up next week for that In terms of the neck swelling it has decreased and she is feeling better, advised pt that we do not have ent and that she would need to go to [place], pt says she would like to go home on abx and f/u Will treat patient with clindamycin and prednisone. We will bring her back in 24 hours for recheck if signs need to return sooner if she develops fever greater than 101 increasing swelling difficulty swallowing increasing hoarseness. Emphasized importance of returning for recheck she understands Dictation was done using voice recognition software. There may be some grammatical errors which are unintentional I discussed results of laboratory findings and diagnostic test with patie nt/family. The treatment plan was explained and I reviewed the discharge instructions with them. Questions were answered. The patient/family verbalizes understanding - Vital Signs Vital signs: Temp Pulse Resp BP Pulse Ox 97.8 F 51 L 18 184/98 H 96 06/27/19 16:30 06/27/19 16:23 06/27/19 16:27 06/27/19 16:23 06/27/19 16:27 - Laboratory Result Diagrams: 06/27/19 16:50 06/27/19 16:50 Laboratory results interpreted by me: 06/27/19 06/27/19 16:50 16:50 RDW 15.5 H Lymph % (Auto) 46.4 H Glucose 127 H AST 44 H Discharge - Discharge Clinical Impression: Dental caries, High blood pressure Condition: Good Disposition: HOME, SELF-CARE Additional Instructions: Dental Infection or Abscess You have an infection, perhaps an abscess (pus formation) of the gum around one of your teeth, which is probably decayed. If there is an abscess, it may drain on its own or it may need to be opened or lanced. Severe swelling or drainage around a tooth usually means a deep dental abscess which usually requires evaluation and treatment by a dentist or oral surgeon. Antibiotics may be prescribed while awaiting dental treatment. If you develop high fever with chills, worsening pain, or increasing swelling in the area, see a dentist or oral surgeon immediately or return to the Emergency Department immediately. Please review the discharge instructions, they will tell you about your dis ease/injury and what you need to return to the ED for Return to the ED if you feel worse or can follow-up with your family doctor Your blood pressure was elevated today needs to be rechecked again in 1 to 2 weeks to determine if need to be on medication or have your medications adjusted. Untreated hypertension can cause heart attack stroke and kidney failure reTurn to the ED in 24 hours for recheck or sooner if you develop fevers greater than 101 increased swelling difficulty swallowing or change in your voice Use your aerosol machine 4 times a day for the next 5 days then as needed for c ough and congestion Follow-up with your dentist in 1 week Prescriptions: Clindamycin HCl [Cleocin 150 mg Capsule] 300 mg PO ASDIR #30 Prednisone [Deltasone] 20 mg PO TID #15 tablet Forms: Elevated Blood Pressure Referrals: ANNALEE MENDEZ MD [Primary Care Provider] - Follow up as needed
[2019-06-27] MEDS ORDERED: DEXAMETHASONE SOD PHOS INJ 10 MG/1 ML VIAL IV ONE (17:29)
[2019-06-27] MEDS ORDERED: CLINDAMYCIN 600 MG/D5W RTU 600 MG/50 ML RTUPB IV SCH (17:30)
--- NOTE | 2019-06-27 18:10 | RADIOLOGY REPORT (SQ) ---
EXAM DESCRIPTION: CT SOFT TISSUE NECK WITH COMPLETED DATE/TIME: 06/27/2019 5:49 pm REASON FOR STUDY: r/o abscess COMPARISON: None. TECHNIQUE: Post IV contrasted scanning from skull base through lung apices with review of bone, soft tissue and lung windows. Reconstructed coronal and sagittal MPR images reviewed. All images stored on PACS. All CT scanners at this facility use dose modulation, iterative reconstruction, and/or weight based d osing when appropriate to reduce radiation dose to as low as reasonably achievable (ALARA). [facility]: Dose Right [facility]: CareDose [facility]: Dose Right [facility]: Teradose 4D [facility]: Profitero CONTRAST TYPE AND DOSE: contrast/concentration: Isovue 350.00 mg/ml; Total Contrast Delivered: 75.0 ml; Total Saline Delivered: 53.6 ml RENAL FUNCTION: GFR > 60. RADIATION DOSE: CT Rad equipment meets quality standard of care and radiation dose reduction techniq ues were employed. CTDIvol: 14.2 mGy. DLP: 430 mGy-cm. . LIMITATIONS: None. FINDINGS: SKULL BASE: Intact. MAJOR SALIVARY GLANDS: No solid or cystic masses. No inflammatory changes. LYMPHADENOPATHY: No adenopathy. MUCOSAL MASSES OR ASYMMETRY: No mucosal masses or asymmetry. LARYNX/CORDS: No abnormal findings. VASCULAR STRUCTURES: The major vessels are patent. LUNG APICES: Clear. BONES: Intact. THYROID: Normal size. No masses. PARANASAL SINUSES: Clear. OTHER: No other significant finding. IMPRESSION: No acute findings. TECHNICAL DOCUMENTATION: JOB ID: [id number] Quality ID # [id number]: Final reports with documentation of one or more dose reduction techniques (e.g., Au tomated exposure control, adjustment of the mA and/or kV according to patient size, use of iterative reconstruction technique) 2010 [email or web address]- All Rights Reserved Reading location - IP/workstation name: [email or web address]
[2019-06-27 19:26] VITALS: BP 170/92
== END 2019-06-27 19:28 | disposition home or self-care (01) ==
LOC: ER 16:18
DX: K02.9 Dental caries, unspecified (principal); I10 Essential (primary) hypertension; R22.1 Localized swelling, mass and lump, neck; J45.909 Unspecified asthma, uncomplicated; Z79.899 Other long term (current) drug therapy
CPT/HCPCS: 94640; 99284; 96375; 96365; 36415; 87040; 85025; 80053; 70491; S0077; J1100; J7620

== ENCOUNTER 2019-07-02 13:52 | Emergency (ER) | payer MEDICAID ==
[2019-07-02] MEDS ORDERED: BUTALB/ACETAMINOPHEN/CAFFEINE 1 TAB EACH PO ONE (15:05)
--- NOTE | 2019-07-02 15:07 | ER Document Report ---
ED Medical Screen (RME) - General Chief Complaint: Headache Stated Complaint: HEADACHE Time Seen by Provider: 07/02/19 15:00 Primary Care Provider: ANNALEE MENDEZ MD [Primary Care Provider] - Follow up as needed Mode of Arrival: Ambulatory Information source: Patient Notes: 63-year-old female with history of migraines presents emergency department with complaints of headaches and feeling really shaky with high blood pressure. Reports she is out of her Fioricet and medicare will not fill it until July 13. She reports she has had the headache for couple days been out of Fioricet for couple days and took her blood pressure today is very high. She reports she felt very shaky. Denies fever vomiting diarrhea. Complains of right arm pain but reports she has had the right arm pain coming and going for a while. No complaints of chest pain or shortness of breath I have greeted and performed a rapid initial assessment of this patient. A comprehensive ED assessment and evaluation of the patient, analysis of test results and completion of the medical decision making process will be conducted by additional ED providers. TRAVEL OUTSIDE OF THE [place] IN LAST 30 DAYS: No - Related Data Allergies/Adverse Reactions: Penicillins Allergy (Mild, Verified 07/02/19 15:01) rash Past Medical History - Past Medical History Cardiac Medical History: Reports: Hx Hypercholesterolemia, Hx Hypertension - medicated Denies: Hx Heart Attack Pulmonary Medical History: Reports: Hx Asthma Neurological Medical History: Reports: Hx Migraine. Denies: Hx Seizures Renal/ Medical History: Reports: Hx Kidney Stones. Denies: Hx Peritoneal Dialysis GI Medical History: Denies: Hx Hiatal Hernia, Hx Ulcer Musculoskeltal Medical History: Reports Hx Arthritis, Reports Hx Musculoskeletal Deformity, Reports Hx Musculoskeletal Trauma Psychiatric Medical History: Reports: Hx Depression - ANXIETY Infectious Medical History: Past Surgical History: Reports: Hx Cholecystectomy, Hx Kidney (Renal Surgery) - stent, tumor removed, Hx Orthopedic Surgery - Foot surgery to right great toe. Denies: Hx Hysterectomy, Hx Mastectomy, Hx Nose Surgery, Hx Open Heart Surgery, Hx Pacemaker - Immunizations Hx Diphtheria, Pertussis, Tetanus Vaccination: No Physical Exam - Vital signs Vitals: Temp Pulse Resp BP Pulse Ox 98.2 F 92 16 133/104 H 96 07/02/19 14:52 07/02/19 14:52 07/02/19 14:52 07/02/19 14:52 07/02/19 14:52 Course - Vital Signs Vital signs: Temp Pulse Resp BP Pulse Ox 98.2 F 92 16 133/104 H 96 07/02/19 14:52 07/02/19 14:52 07/02/19 14:52 07/02/19 14:52 07/02/19 14:52 Doctor's Discharge - Discharge Referrals: ANNALEE MENDEZ MD [Primary Care Provider] - Follow up as needed
[2019-07-02 16:03] LABS: ABSOLUTE BASOPHILS # (AUTO) 0.1 10^3/uL (0.0-0.2); ABSOLUTE EOSINOPHILS # (AUTO) 0.2 10^3/uL (0.0-0.6); ABSOLUTE LYMPHOCYTES (AUTO) 2.4 10^3/uL (0.5-4.7); ABSOLUTE MONOCYTES (AUTO) 0.3 10^3/uL (0.1-1.4); ABSOLUTE NEUT (AUTO) 3.5 10^3/uL (1.7-8.2); TOTAL CELLS COUNTED % (AUTO) 100 %
[2019-07-02 16:10] LABS: BASOPHILS % (AUTO) 1.2 % (0-2); EOSINOPHILS % (AUTO) 3.4 % (0-6); HEMATOCRIT 40.1 % (36.0-47.0); LYMPHOCYTES % (AUTO) 36.8 % (13-45); MEAN CORPUSCULAR HEMOGLOBIN 27.5 pg (27.0-33.4); MEAN CORPUSCULAR VOLUME 79 fl (80-97); MONOCYTES % (AUTO) 4.1 % (3-13); PLATELET COUNT 200 10^3/uL (150-450); RED CELL DISTRIBUTION WIDTH 15.2 % (11.5-14.0); SEGMENTED NEUTROPHILS % (AUTO) 54.5 % (42-78); WHITE BLOOD COUNT 6.5 10^3/uL (4.0-10.5)
[2019-07-02 16:14] LABS: APPEARANCE,URINE SLIGHTLY-CLOUDY; BILIRUBIN,URINE NEGATIVE (NEGATIVE); COLOR,URINE YELLOW; GLUCOSE, URINE NEGATIVE (NEGATIVE); KETONES,URINE NEGATIVE (NEGATIVE); LEUKOCYTE ESTERASE,URINE NEGATIVE (NEGATIVE); NITRITE,URINE NEGATIVE (NEGATIVE); PROTEIN,URINE 100 mg/dL (NEGATIVE); URINE SPECIFIC GRAVITY 1.029; UROBILINOGEN,URINE NEGATIVE mg/dL (<2.0)
[2019-07-02 16:18] LABS: ALBUMIN 4.2 g/dL (3.5-5.0); ALKALINE PHOSPHATASE 107 U/L (38-126); ANION GAP 10 (5-19); ASPARTATE AMINO TRANSFERASE 40 U/L (14-36); BILIRUBIN,DIRECT 0.2 mg/dL (0.0-0.4); BILIRUBIN,TOTAL 0.4 mg/dL (0.2-1.3); BLOOD UREA NITROGEN 12 mg/dL (7-20); CARBON DIOXIDE 28 mmol/L (22-30); CHLORIDE 104 mmol/L (98-107); GLUCOSE 104 mg/dL (75-110); POTASSIUM 3.7 mmol/L (3.6-5.0); TOTAL PROTEIN 7.5 g/dL (6.3-8.2)
[2019-07-02 16:59] VITALS: BP 159/100
--- NOTE | 2019-07-02 17:18 | ER Document Report ---
ED General - General Chief Complaint: Headache Stated Complaint: HEADACHE Time Seen by Provider: 07/02/19 15:00 Primary Care Provider: ANNALEE MENDEZ MD [Primary Care Provider] - Follow up as needed Mode of Arrival: Ambulatory Notes: 63-year-old female with history of hypertension and migraine headaches presents to the ER for headache. Patient states it feels like her usual headache. Patient states she has been out of her Fioricet which usually improves the migraine. Patient states she also took her last dose of metoprolol succinate ER 100 mg today and is requesting a prescription for this as well. Patient denies any other complaints today. Patient was given Fioricet dose in triage with complete resolution of her headache. TRAVEL OUTSIDE OF THE [place] IN LAST 30 DAYS: No - Related Data Allergies/Adverse Reactions: Penicillins Allergy (Mild, Verified 07/02/19 15:01) rash Home Medications: fiorcet Past Medical History - General Information source: Patient - Social History Smoking Status: Never Smoker Chew tobacco use (# tins/day): No Frequency of alcohol use: None Drug Abuse: None Family History: Reviewed & Not Pertinent, Arthritis, CAD, CVA, Hyperlipidemia, Hypertension, Other Patient has suicidal ideation: No Patient has homicidal ideation: No - Past Medical History Cardiac Medical History: Reports: Hx Hypercholesterolemia, Hx Hypertension - medicated Denies: Hx Heart Attack Pulmonary Medical History: Reports: Hx Asthma Neurological Medical History: Reports: Hx Migraine. Denies: Hx Seizures Renal/ Medical History: Reports: Hx Kidney Stones. Denies: Hx Peritoneal Dialysis GI Medical History: Denies: Hx Hiatal Hernia, Hx Ulcer Musculoskeletal Medical History: Reports Hx Arthritis, Reports Hx Musculoskeletal Deformity, Reports Hx Musculoskeletal Trauma Psychiatric Medical History: Reports: Hx Depression - ANXIETY Infectious Medical History: Past Surgical History: Reports: Hx Cholecystectomy, Hx Kidney (Renal Surgery) - stent, tumor removed, Hx Orthopedic Surgery - Foot surgery to right great toe. Denies: Hx Hysterectomy, Hx Mastectomy, Hx Nose Surgery, Hx Open Heart Surgery, Hx Pacemaker - Immunizations Hx Diphtheria, Pertussis, Tetanus Vaccination: No Review of Systems - Review of Systems Notes: Constitutional: Negative for fever. HENT: Negative for sore throat. Eyes: Negative for visual changes. Cardiovascular: Negative for chest pain. Respiratory: Negative for shortness of breath. Gastrointestinal: Negative for abdominal pain, vomiting or diarrhea. Genitourinary: Negative for dysuria. Musculoskeletal: Negative for back pain. Skin: Negative for rash. Neurological: Positive for headaches. Negative for weakness or numbness. 10 point ROS negative except as marked above and in HPI. Physical Exam - Vital signs Vitals: Temp Pulse Resp BP Pulse Ox 98.2 F 92 16 133/104 H 96 07/02/19 14:52 07/02/19 14:52 07/02/19 14:52 07/02/19 14:52 07/02/19 14:52 - Notes Notes: GENERAL: Well-appearing, well-nourished and in no acute distress. HEAD: Atraumatic, normocephalic. EYES: Pupils equal round and reactive to light, extraocular movements intact, sclera anicteric, conjunctiva are normal. NECK: Normal range of motion, supple without lymphadenopathy or JVD. LUNGS: Breath sounds clear to auscultation bilaterally and equal. No wheezes rales or rhonchi. HEART: Regular rate and rhythm without murmurs, rubs or gallops. EXTREMITIES: Normal range of motion, no pitting or edema. No clubbing or cyanosis. NEUROLOGICAL: Cranial nerves II through XII grossly intact. Normal speech, normal gait. No facial droop, no tongue deviation. Neuro exam otherwise grossly unremarkable. PSYCH: Normal mood, normal affect. SKIN: Warm, Dry, normal turgor, no rashes or lesions noted. Course - Re-evaluation Re-evalutation: 07/02/19 Presentation of a headache that appears to be most consistent with tension versus migrainous type headache. Headache was not maximal in onset, pat ient has no focal neurologic deficits, no nuchal rigidity, vital signs within normal limits, no papilledema, and patient is overall well in appearance. Based on clinical history and examination I do not suspect an acute subarachnoid hemorrhage, dural venous sinus thrombosis, acute meningitis, or intercranial mass. Given my low clinical suspicion for any acute life-threatening etiology, I do not feel advanced neuro imaging or laboratory testing is indicated at this time. Patient received Fioricet in triage with resolution of headache. Will prescribe Fioricet and a one-week refill on her metoprolol. Patient to follow- up with her PCP on Thursday. Strict return precautions given. Patient voices understanding and agrees with plan of care. - Vital Signs Vital signs: Temp Pulse Resp BP Pulse Ox 98.0 F 74 18 159/100 H 98 07/02/19 16:53 07/02/19 16:53 07/02/19 16:53 07/02/19 16:53 07/02/19 16:53 - Laboratory Result Diagrams: 07/02/19 15:30 07/02/19 15:30 Laboratory results interpreted by me: 07/02/19 07/02/19 07/02/19 15:25 15:30 15:30 MCV 79 L RDW 15.2 H AST 40 H Urine Protein 100 H Urine Ascorbic Acid 20 H Discharge - Discharge Clinical Impression: Medicine refill Migraine headache Qualifiers: Migraine type: unspecified Status migrainosus presence: without status migrainosus Intractability: not intractable Qualified Code(s): G43.909 - Migraine, unspecified, not intractable, without status migrainosus Hypertension Qualifiers: Hypertension type: unspecified Qualified Code(s): I10 - Essential (primary) hypertension Condition: Stable Disposition: HOME, SELF-CARE Instructions: Headache ([facility]) Additional Instructions: Please take medications as prescribed. Please follow-up with your primary care doctor on Thursday for further refills. Return immediately to ER for any worsening symptoms, vomiting worsening headache, fever, neck pain, inability to flex her neck, chest pain, shortness of breath, nausea/vomiting, abdominal pain, or any other symptoms that are concerning to you. Prescriptions: Butalb/Acetaminophen/Caffeine [Fioricet (50-325-40 mg) Tablet] 1 - 2 tab PO Q4H #20 tab Metoprolol Succinate 100 mg PO DAILY #7 tab.er.24h Referrals: ANNALEE MENDEZ MD [Primary Care Provider] - 07/04/19
== END 2019-07-02 17:29 | disposition home or self-care (01) ==
LOC: ER 13:52
DX: Z76.0 Encounter for issue of repeat prescription (principal); G43.909 Migraine, unspecified, not intractable, without status migrainosus; I10 Essential (primary) hypertension; Z79.899 Other long term (current) drug therapy; J45.909 Unspecified asthma, uncomplicated
CPT/HCPCS: 99283; 36415; 85025; 80053; 81001; J3490

== ENCOUNTER 2019-08-13 13:51 | Emergency (ER) | payer MEDICAID ==
[2019-08-13] MEDS ORDERED: OXYCODONE-ACETAMINOPHEN 5-325 MG TABLET PO ONE (14:22)
[2019-08-13] MEDS ORDERED: IBUPROFEN 600 MG TABLET PO ONE (14:22)
--- NOTE | 2019-08-13 14:23 | ER Document Report ---
HPI - HPI Time Seen by Provider: 08/13/19 14:14 Notes: 63-year-old female patient presenting to the emergency department chief complaint right heel pain. Patient denies any injury. She states she saw her doctor on who told her there was inflammation and placed her on prednisone. Patient reports she is supposed to be following up with a extractor machine operator however that appointment is not for another week. Patient reports the pain feels like a throbbing pain. - REPRODUCTIVE Reproductive: DENIES: : Past Medical History - General Information source: Patient - Social History Smoking Status: Never Smoker Family History: Reviewed & Not Pertinent, Arthritis, CAD, CVA, Hyperlipidemia, Hypertension, Other - Past Medical History Cardiac Medical History: Reports: Hx Hypercholesterolemia, Hx Hypertension - medicated Denies: Hx Heart Attack Pulmonary Medical History: Reports: Hx Asthma Neurological Medical History: Reports: Hx Migraine. Denies: Hx Seizures Renal/ Medical History: Reports: Hx Kidney Stones. Denies: Hx Peritoneal Dialysis GI Medical History: Denies: Hx Hiatal Hernia, Hx Ulcer Musculoskeletal Medical History: Reports Hx Arthritis, Reports Hx Musculoskeletal Deformity, Reports Hx Musculoskeletal Trauma Psychiatric Medical History: Reports: Hx Depression - ANXIETY Infectious Medical History: Past Surgical History: Reports: Hx Cholecystectomy, Hx Kidney (Renal Surgery) - stent, tumor removed, Hx Orthopedic Surgery - Foot surgery to right great toe. Denies: Hx Hysterectomy, Hx Mastectomy, Hx Nose Surgery, Hx Open Heart Surgery, Hx Pacemaker - Immunizations Hx Diphtheria, Pertussis, Tetanus Vaccination: No Vertical Provider Document - CONSTITUTIONAL Notes: PHYSICAL EXAMINATION: GENERAL: Well-appearing, well-nourished and in no acute distress. HEAD: Atraumatic, normocephalic. EYES: Pupils equal round extraocular movements intact, conjunctiva are normal. ENT: Nares patent NECK: Normal range of motion LUNGS: No respiratory distress Musculoskeletal: Normal range of motion, slight redness to patient's right heel, tender to touch, no warmth, no evidence of infection. Strong dorsalis pedis pulse, cap refill less than 3 seconds distally. NEUROLOGICAL: Normal speech, normal gait. PSYCH: Normal mood, normal affect. SKIN: Warm, Dry, normal turgor, no rashes or lesions noted. - INFECTION CONTROL TRAVEL OUTSIDE OF THE [place] IN LAST 30 DAYS: No Course - Re-evaluation Re-evalutation: X-rays negative for any acute bony injury. Patient will be given short course of pain medication, continue taking prednisone. Keep follow-up appointment with podiatry. Patient verbalized understanding and agreement with this plan. - Vital Signs Vital signs: Temp Pulse Resp BP Pulse Ox 97.7 F 58 L 20 166/98 H 98 08/13/19 13:57 08/13/19 13:57 08/13/19 13:57 08/13/19 13:57 08/13/19 13:57 Discharge - Discharge Clinical Impression: Pain of right heel Condition: Stable Disposition: HOME, SELF-CARE Additional Instructions: The x-ray today of your foot was negative. This means there is no fracture or deformity or bony injury. Please keep the follow-up appointment that you have for next week with the extractor machine operator. Please continue to take ibuprofen 600 mg every 6 hours for your pain. Please take the Fulton as prescribed for severe pain only. Do not take any Tylenol or acetaminophen while taking the Fulton. The Fulton will not be able to be refilled by the emergency department so please see your primary care provider if you need additional pain medication. Prescriptions: Hydrocodone/Acetaminophen [Fulton 5-325 mg Tablet] 1 tab PO Q4H #10 tablet Referrals: ANNALEE MENDEZ MD [Primary Care Provider] - Follow up as needed
--- NOTE | 2019-08-13 15:11 | RADIOLOGY REPORT (SQ) ---
EXAM DESCRIPTION: FOOT RIGHT COMPLETE COMPLETED DATE/TIME: 08/13/2019 2:55 pm REASON FOR STUDY: right heel pain . Pain at the plantar aspect, near at the medial heel. COMPARISON: Right foot x-ray 02/01/2019, 07/10/2016, 02/17/2014. NUMBER OF VIEWS: Three views. TECHNIQUE: AP, lateral and oblique radiographic images acquired of the right foot. LIMITATIONS: None. FINDINGS: MINERALIZATION: Normal. BONES: No acute fracture or dislocation. Orthopedic hardware is present at the base of the 1st proxi mal phalanx. Bony spurs at the calcaneus. Linear calcification are noted at the Calera's tendon. SOFT TISSUES: No soft tissue swelling. No radiopaque foreign body. IMPRESSION: No radiographic evidence for acute osseous abnormality at the right foot. Calcification at the Kodak's tendon, may be seen with calcific tendinosis. TECHNICAL DOCUMENTATION: JOB ID: [id number] [employer]- All Rights Reserved Reading location - IP/workstation name: [email or web address]
[2019-08-13] MEDS ORDERED: HYDROCODONE/ACETAMINOPHEN 5-325 MG TABLET PO ONE (16:27)
[2019-08-13 16:36] VITALS: BP 180/97
== END 2019-08-13 16:37 | disposition home or self-care (01) ==
LOC: ER 13:51
DX: M79.671 Pain in right foot (principal); I10 Essential (primary) hypertension; J45.909 Unspecified asthma, uncomplicated
CPT/HCPCS: 73630; J3490; 99283

== ENCOUNTER 2019-08-15 13:59 | Observation (INO) | payer MEDICAID ==
--- NOTE | 2019-08-15 14:41 | ER Document Report ---
HPI - HPI Time Seen by Provider: 08/15/19 14:37 Notes: Patient is a 63-year-old female presenting to the emergency department as a direct admit from Dr. Mendez. Patient being admitted for persistent right ankle pain. Patient denies any other complaints today. She has orders with her. - REPRODUCTIVE Reproductive: DENIES: : Past Medical History - General Information source: Patient - Social History Smoking Status: Never Smoker Frequency of alcohol use: None Drug Abuse: None Family History: Reviewed & Not Pertinent, Arthritis, CAD, CVA, Hyperlipidemia, Hypertension, Other - Past Medical History Cardiac Medical History: Reports: Hx Hypercholesterolemia, Hx Hypertension - medicated Denies: Hx Heart Attack Pulmonary Medical History: Reports: Hx Asthma Neurological Medical History: Reports: Hx Migraine. Denies: Hx Seizures Renal/ Medical History: Reports: Hx Kidney Stones. Denies: Hx Peritoneal Dialysis GI Medical History: Denies: Hx Hiatal Hernia, Hx Ulcer Musculoskeletal Medical History: Reports Hx Arthritis, Reports Hx Musculoskeletal Deformity, Reports Hx Musculoskeletal Trauma Psychiatric Medical History: Reports: Hx Depression - ANXIETY Infectious Medical History: Past Surgical History: Reports: Hx Cholecystectomy, Hx Kidney (Renal Surgery) - stent, tumor removed, Hx Orthopedic Surgery - Foot surgery to right great toe. Denies: Hx Hysterectomy, Hx Mastectomy, Hx Nose Surgery, Hx Open Heart Surgery, Hx Pacemaker - Immunizations Hx Diphtheria, Pertussis, Tetanus Vaccination: No Vertical Provider Document - CONSTITUTIONAL Notes: PHYSICAL EXAMINATION: GENERAL: Well-appearing, well-nourished and in no acute distress. HEAD: Atraumatic, normocephalic. EYES: Pupils equal round extraocular movements intact, conjunctiva are normal. ENT: Nares patent NECK: Normal range of motion LUNGS: No respiratory distress Musculoskeletal: Normal range of motion, tenderness over the right lateral ankle, no erythema, ecchymosis or edema noted. Strong dorsalis pedis pulse. Cap refill less than 3 seconds. NEUROLOGICAL: Normal speech. PSYCH: Normal mood, normal affect. SKIN: Warm, Dry, normal turgor, no rashes or lesions noted. - INFECTION CONTROL TRAVEL OUTSIDE OF THE [place] IN LAST 30 DAYS: No Course - Re-evaluation Re-evalutation: 08/15/19 14:40 Patient comes to the emergency department with direct admission orders, there are no beds on the inpatient side. Orders will be initiated here in the em ergency department. Patient has no complaints today other than her persistent right ankle pain. - Vital Signs Vital signs: Temp Pulse Resp BP Pulse Ox 98.3 F 61 16 162/120 H 99 08/15/19 14:18 08/15/19 14:18 08/15/19 14:18 08/15/19 14:18 08/15/19 14:18 Discharge - Discharge Clinical Impression: Right ankle pain Qualifiers: Chronicity: acute Qualified Code(s): M25.571 - Pain in right ankle and joints of right foot Condition: Stable Disposition: ADMITTED OBSERVATION Admitting Provider: Trena Unit Admitted: Medical Floor Referrals: ANNALEE MENDEZ MD [Primary Care Provider] - Follow up as needed
[2019-08-15 15:56] LABS: ABSOLUTE BASOPHILS # (AUTO) 0.1 10^3/uL (0.0-0.2); ABSOLUTE LYMPHOCYTES (AUTO) 1.5 10^3/uL (0.5-4.7); ABSOLUTE MONOCYTES (AUTO) 0.3 10^3/uL (0.1-1.4); ABSOLUTE NEUT (AUTO) 9.2 10^3/uL (1.7-8.2); EOSINOPHILS % (AUTO) 0.1 % (0-6); HEMOGLOBIN 13.4 g/dL (12.0-15.5); LYMPHOCYTES % (AUTO) 13.6 % (13-45); MEAN CORPUSCULAR HEMOGLOBIN 27.6 pg (27.0-33.4); MEAN CORPUSCULAR HGB CONC 35.2 g/dL (32.0-36.0); MEAN CORPUSCULAR VOLUME 79 fl (80-97); MONOCYTES % (AUTO) 2.9 % (3-13); PLATELET COUNT 226 10^3/uL (150-450); RED BLOOD COUNT 4.84 10^6/uL (3.72-5.28); SEGMENTED NEUTROPHILS % (AUTO) 82.4 % (42-78); TOTAL CELLS COUNTED % (AUTO) 100 %; WHITE BLOOD COUNT 11.2 10^3/uL (4.0-10.5)
[2019-08-15 16:18] LABS: ALBUMIN 4.1 g/dL (3.5-5.0); ALKALINE PHOSPHATASE 105 U/L (38-126); ANION GAP 8 (5-19); ASPARTATE AMINO TRANSFERASE 28 U/L (14-36); BILIRUBIN,DIRECT 0.3 mg/dL (0.0-0.4); BILIRUBIN,TOTAL 0.3 mg/dL (0.2-1.3); BLOOD UREA NITROGEN 17 mg/dL (7-20); CALCIUM 8.9 mg/dL (8.4-10.2); CARBON DIOXIDE 32 mmol/L (22-30); CHLORIDE 99 mmol/L (98-107); GLUCOSE 107 mg/dL (75-110); POTASSIUM 3.9 mmol/L (3.6-5.0); TOTAL PROTEIN 7.4 g/dL (6.3-8.2); URIC ACID 5.6 mg/dL (2.5-7.5)
--- NOTE | 2019-08-15 17:07 | RADIOLOGY REPORT (SQ) ---
EXAM DESCRIPTION: MRI RT LOWER JOINT WITHOUT COMPLETED DATE/TIME: 08/15/2019 4:51 pm REASON FOR STUDY: right ankle pain COMPARISON: None. TECHNIQUE: Right ankle images acquired and stored on PACS. Multiplanar images include fat sensitive sequences as T1, fluid sensitive sequences as FST2/STIR, cartilage sensitive sequences as FSPD, and g radient echo sequences. LIMITATIONS: Motion. FINDINGS: BONE MARROW: No alteration of signal to suggest marrow replacement or edema. No occult fra cture. No large osteophytes. EFFUSIONS: No subtalar or tibiotalar effusions. No loose bodies. OSSEOUS ARTICULATIONS: Intact. Mild degenerative changes in the ankle joint. TALAR DOME AND TIBIAL PLAFOND: Intact. ACHILLES TENDON: Intact without partial or full-thickness tear. No adjacent bursal fluid or edema. TIBIALIS ANTERIOR TENDON: Intact without edema at the 1st MT attachment. TIBIALIS POSTERIOR TENDON: Normal morphology and no edema at the navicular attachment. No tendon goldsmith th fluid. FLEXOR HALLUCIS LONGUS AND FLEXOR DIGITORUM TENDONS: Normal morphology and no tendon sheath fluid. No edema of the os trigonum. PERONEUS LONGUS AND BREVIS TENDON: Normal morphology and no tendon sheath fluid. No subluxation. ATFL, CFL, PTFL: Intact. No thickening or signal alteration. No shirley-ligamentous fluid. DELTOID LIGAMENT: Visualized components intact. TARSAL TUNNEL: No masses. No muscle atrophy. SINUS TARSI: No fluid. No reactive marrow edema or erosions. PLANTAR FASCIA: Increased T2 signal and thickening medial calcaneal attachment. ADJACENT SOFT TISSUES: No masses. OTHER: No other significant finding. IMPRESSION: Plantar fasciitis. TECHNICAL DOCUMENTATION: JOB ID: [id number] [employer]- All Rights Reserved Reading location - IP/workstation name: [email or web address]
[2019-08-15] MEDS ORDERED: ACETAMINOPHEN 325 MG TABLET PO ONE (17:46)
[2019-08-15] MEDS ORDERED: ALBUTEROL SULFATE HFA (90 MCG/PUFF) 200 PUFF/8.5 GM MDI IH PRN (20:25)
--- NOTE | 2019-08-15 20:25 | PDOC H&P ---
History of Present Illness Admission Date/PCP: 08/15/19 17:12 ANNALEE MENDEZ MD History of Present Illness: LYDIA MUHAMMAD is a 63 year old female, I saw in the office last week when she came for evaluation of pain of the right heel, she was diagnosed with plantar fasciitis she was prescribed prednisone and she was referred to territory sales professional. She went to the emergency room over the weekend because of increased pain and inability to bear weight on the right ankle, she was evaluated she was given opioid, hydrocodone, she came to the office today complaining of severe pain unable to bear weight on the ankle she was asking to be admitted for evaluation of her problems. MRI of the ankle was done it confirmed that she has plantar fasciitis Past Medical History Cardiac Medical History: Reports: Hyperlipidema, Hypertension - medicated Pulmonary Medical History: Reports: Asthma Neurological Medical History: Reports: Migraine GI Medical History: Musculoskeltal Medical History: Reports: Arthritis Psychiatric Medical History: Reports: Depression - ANXIETY Past Surgical History Past Surgical History: Reports: Cholecystectomy, Orthopedic Surgery - Foot surgery to right great toe Social History Smoking Status: Never Smoker Electronic Cigarette use?: No Family History Family History: Reviewed & Not Pertinent, Arthritis, CAD, CVA, Hyperlipidemia, Hypertension, Other Parental Family History Reviewed: Yes Children Family History Reviewed: Yes Sibling(s) Family History Reviewed.: Yes Medication/Allergy Home Medications: Albuterol Sulfate [Proair Hfa Inhalation Aerosol 8.5 gm Mdi] 1 puff IH Q4HP PRN 08/15/19 Ibuprofen [Motrin 800 mg Tablet] 800 mg PO TIDP PRN 08/15/19 Metoprolol Succinate [Toprol Xl] 100 mg PO DAILY 08/15/19 Paroxetine HCl [Paroxetine Cr] 37.5 mg PO DAILY 08/15/19 Prednisone 10 mg PO DAILY 08/15/19 Venlafaxine HCl ER [Effexor Xr 75 mg Cap.sr] 150 mg PO DAILY 08/15/19 Allergies/Adverse Reactions: Penicillins Allergy (Mild, Verified 07/02/19 15:01) rash Review of Systems Constitutional: ABSENT: chills, fever(s), headache(s), weight gain, weight loss Eyes: ABSENT: visual disturbances Ears: ABSENT: hearing changes Cardiovascular: ABSENT: chest pain, dyspnea on exertion, edema, orthropnea, pa lpitations Respiratory: ABSENT: cough, hemoptysis Gastrointestinal: ABSENT: abdominal pain, constipation, diarrhea, hematemesis, hematochezia, nausea, vomiting Genitourinary: ABSENT: dysuria, hematuria Musculoskeletal: PRESENT: joint swelling Integumentary: ABSENT: rash, wounds Neurological: ABSENT: abnormal gait, abnormal speech, confusion, dizziness, focal weakness, syncope Psychiatric: ABSENT: anxiety, depression, homidical ideation, suicidal ideation Endocrine: ABSENT: cold intolerance, heat intolerance, menstrual abnormalities, polydipsia, polyuria Hematologic/Lymphatic: ABSENT: easy bleeding, easy bruising, lymphadenopathy Physical Exam Vital Signs: Temp Pulse Resp BP Pulse Ox 97.6 F 64 18 160/81 H 100 08/15/19 19:46 08/15/19 19:46 08/15/19 19:46 08/15/19 19:46 08/15/19 19:46 Intake & Output 08/14/19 08/15/19 08/16/19 06:59 06:59 06:59 Weight 83.9 kg General appearance: PRESENT: no acute distress Head exam: PRESENT: atraumatic, normocephalic Eye exam: PRESENT: PERRLA Ear exam: PRESENT: normal external ear exam Neck exam: PRESENT: full ROM Respiratory exam: PRESENT: clear to auscultation jude Cardiovascular exam: PRESENT: RRR, +S1, +S2 Vascular exam: PRESENT: normal capillary refill GI/Abdominal exam: PRESENT: normal bowel sounds, soft Rectal exam: PRESENT: deferred Musculoskeletal exam: PRESENT: other - Swelling, right ankle Neurological exam: PRESENT: alert, CN II-XII grossly intact Psychiatric exam: PRESENT: appropriate affect, normal mood Skin exam: PRESENT: dry, intact, warm. ABSENT: cyanosis, rash Results Laboratory Results: 08/15/19 15:45 08/15/19 15:45 08/15/19 08/15/19 15:45 15:45 WBC 11.2 H RBC 4.84 Hgb 13.4 Hct 38.0 MCV 79 L MCH 27.6 MCHC 35.2 RDW 15.0 H Plt Count 226 Seg Neutrophils % 82.4 H Sodium 138.7 Potassium 3.9 Chloride 99 Carbon Dioxide 32 H Anion Gap 8 BUN 17 Creatinine 0.59 Est GFR ( Amer) > 60 Glucose 107 Uric Acid 5.6 Calcium 8.9 Total Bilirubin 0.3 AST 28 Alkaline Phosphatase 105 Total Protein 7.4 Albumin 4.1 Impressions: Lower Extremity MRI 08/15/19 14:50 IMPRESSION: Plantar fasciitis. Assessment & Plan - Diagnosis (1) Plantar fasciitis of right foot Is this a current diagnosis for this admission?: Yes Plan: She has plantar fasciitis, she started on IV Toradol 30 mg every 6 for 4 doses
[2019-08-15] MEDS: KETOROLAC TROMETHAMINE INJ/PF 30 MG/1 ML SDV IV SCH (20:43)
[2019-08-15] MEDS ORDERED: VENLAFAXINE HCL 75 MG CAP.SR.24H PO SCH (21:00)
[2019-08-15] MEDS ORDERED: METOPROLOL SUCCINATE 50 MG TAB.SR.24H PO SCH (21:30)
[2019-08-16] MEDS: KETOROLAC TROMETHAMINE INJ/PF 30 MG/1 ML SDV IV SCH (05:30)
[2019-08-16 05:35] VITALS: BP 156/98
--- NOTE | 2019-08-16 19:18 | Left Against Medical Advice ---
Against Medical Advice Admission Date/Time: 08/15/19 17:12 Primary Care Provider: ANNALEE MENDEZ MD Date of Patient Emigration: 08/16/19 - Diagnosis: (1) Plantar fasciitis of right foot Is this a current diagnosis for this admission?: Yes - Summary: Summary: Please see Admission and Progress Notes as well. LYDIA MUHAMMAD is a 63 F, who LEFT AGAINST MEDICAL ADVICE. The Patient was admitted on 08/15/19 17:12. Patient was admitted for observation for evaluation and management of right ankle pain, MRI of the right ankle demonstrated plantar fasciitis, she was treated with intravenous Toradol, patient was not able to get a bed upstairs she has been the emergency room since she came in last night she was upset and she is leaving AMA
== END 2019-08-16 09:44 | disposition home or self-care (01) ==
LOC: ER 13:59 → EH 17:12
PROVIDERS: ADMIT Internal Medicine; ATTEND Internal Medicine
DX: M72.2 Plantar fascial fibromatosis (principal); I10 Essential (primary) hypertension; J45.909 Unspecified asthma, uncomplicated; Z98.890 Other specified postprocedural states; Z79.899 Other long term (current) drug therapy
CPT/HCPCS: 96376; 99284; 96374; 36415; 84550; 85025; 80076; 80048; 73721; J3490 ×3; J1885 ×2; G0378

== ENCOUNTER 2019-08-27 00:08 | Emergency (ER) | payer MEDICAID ==
[2019-08-27 01:13] LABS: ABSOLUTE BASOPHILS # (AUTO) 0.1 10^3/uL (0.0-0.2); ABSOLUTE EOSINOPHILS # (AUTO) 0.1 10^3/uL (0.0-0.6); ABSOLUTE MONOCYTES (AUTO) 0.3 10^3/uL (0.1-1.4); ABSOLUTE NEUT (AUTO) 2.8 10^3/uL (1.7-8.2); BASOPHILS % (AUTO) 1.7 % (0-2); EOSINOPHILS % (AUTO) 2.1 % (0-6); HEMATOCRIT 35.6 % (36.0-47.0); HEMOGLOBIN 12.2 g/dL (12.0-15.5); LYMPHOCYTES % (AUTO) 37.9 % (13-45); MEAN CORPUSCULAR HEMOGLOBIN 27.2 pg (27.0-33.4); MEAN CORPUSCULAR HGB CONC 34.4 g/dL (32.0-36.0); MEAN CORPUSCULAR VOLUME 79 fl (80-97); MONOCYTES % (AUTO) 5.4 % (3-13); PLATELET COUNT 199 10^3/uL (150-450); RED BLOOD COUNT 4.49 10^6/uL (3.72-5.28); RED CELL DISTRIBUTION WIDTH 14.7 % (11.5-14.0); SEGMENTED NEUTROPHILS % (AUTO) 52.9 % (42-78); TOTAL CELLS COUNTED % (AUTO) 100 %; WHITE BLOOD COUNT 5.3 10^3/uL (4.0-10.5)
--- NOTE | 2019-08-27 01:19 | RADIOLOGY REPORT (SQ) ---
CLINICAL HISTORY: cp COMPARISON: None. TECHNIQUE: XR CHEST 1 VIEW 08/27/2019 12:00 AM SOFTWARE DEVELOPER INTERN FINDINGS: The heart is borderline in size. Lungs are clear without consolidation, atelectasis, mass or edema. There is no pleural effusion. There is no pneumothorax. There are no acute osseous findings. IMPRESSION: Clear lungs.
[2019-08-27] MEDS ORDERED: ONDANSETRON HCL INJ/PF 4 MG/2 ML SDV IV ONE ×2 (01:21→04:21)
[2019-08-27] MEDS ORDERED: FENTANYL CITRATE INJ/PF 100 MCG/2 ML AMPUL IV ONE ×3 (01:23→04:32)
[2019-08-27 01:30] LABS: ALBUMIN 3.7 g/dL (3.5-5.0); ALKALINE PHOSPHATASE 113 U/L (38-126); ANION GAP 9 (5-19); ASPARTATE AMINO TRANSFERASE 35 U/L (14-36); BILIRUBIN,DIRECT 0.3 mg/dL (0.0-0.4); BILIRUBIN,TOTAL 0.4 mg/dL (0.2-1.3); BLOOD UREA NITROGEN 12 mg/dL (7-20); CALCIUM 9.1 mg/dL (8.4-10.2); CARBON DIOXIDE 26 mmol/L (22-30); CHLORIDE 104 mmol/L (98-107); CREATINE KINASE 132 U/L (30-135); GLUCOSE 121 mg/dL (75-110); POTASSIUM 3.7 mmol/L (3.6-5.0); TOTAL PROTEIN 6.4 g/dL (6.3-8.2)
[2019-08-27] MEDS ORDERED: ASPIRIN 81 MG TABLET, CHEWABLE PO ONE (01:30)
--- NOTE | 2019-08-27 01:32 | ER Document Report ---
ED General - General Chief Complaint: Chest Pain Stated Complaint: CHEST PAIN Time Seen by Provider: 08/27/19 00:31 Primary Care Provider: ANNALEE MENDEZ MD [Primary Care Provider] - Follow up as needed TRAVEL OUTSIDE OF THE [place] IN LAST 30 DAYS: No - HPI Notes: 63-year-old female followed by Dr. Mendez presents for evaluation of new onset chest pain. Patient states she had some dull aching underneath her left scapula earlier this afternoon and then it subsequently radiated into the mid chest area. It persists at an intensity of about 5/10. Associated belching. No nausea vomiting. No shortness of breath. No diaphoresis. Not radiating into extremity or jaw. No known prior history of cardiac disease. Mother had heart disease. Patient is not a diabetic. Has history of hyperlipidemia. History of hypertension. Non-smoker. Patient denies any known history of thromboembolic disease. She is complaining of some pain and swelling of her right foot and has had some sort of an arthritic problem chronically with this foot. She says that Dr. Mendez had her in a walking boot recently. HEART Score: HISTORY 1 ECG 1 AGE 4 RISK FACTORS 1 TROPONIN 0 TOTAL: 5 If HEART score is = 3 AND both tronponin measurments are normal, the 30 day ris k of a major adverse cardiac event (all-cause mortality, myocardia infarction or need for coronary revscularization) is < 1% (Sensitivity 100%, NPV 100%). PERC SCORE POSITIVE (HADCLOTS) H no hormone administration A Age>50 D NO DVT/PE previously C no hemoptysis L has leg swelling unilaterally O O2 sat greater than 95% T no tachycardia S recent immobilization of right lower extremity with a cast boot - Related Data Allergies/Adverse Reactions: Penicillins Allergy (Mild, Verified 07/02/19 15:01) rash Home Medications: metropolol Past Medical History - General Information source: Patient, Relative - Social History Smoking Status: Never Smoker Frequency of alcohol use: None Family History: Reviewed & Not Pertinent, Arthritis, CVA, Hyperlipidemia, Hypertension, Other. denies: CAD Patient has suicidal ideation: No Patient has homicidal ideation: No - Past Medical History Cardiac Medical History: Reports: Hx Hypercholesterolemia, Hx Hypertension - medicated Denies: Hx Heart Attack Pulmonary Medical History: Reports: Hx Asthma Neurological Medical History: Reports: Hx Migraine. Denies: Hx Seizures Renal/ Medical History: Reports: Hx Kidney Stones. Denies: Hx Peritoneal Dialysis GI Medical History: Denies: Hx Hiatal Hernia, Hx Ulcer Musculoskeletal Medical History: Reports Hx Arthritis, Reports Hx Musc uloskeletal Deformity, Reports Hx Musculoskeletal Trauma Psychiatric Medical History: Reports: Hx Depression - ANXIETY Infectious Medical History: Past Surgical History: Reports: Hx Cholecystectomy, Hx Kidney (Renal Surgery) - stent, tumor removed, Hx Orthopedic Surgery - Foot surgery to right great toe. Denies: Hx Hysterectomy, Hx Mastectomy, Hx Nose Surgery, Hx Open Heart Surgery, Hx Pacemaker - Immunizations Hx Diphtheria, Pertussis, Tetanus Vaccination: No Review of Systems - Review of Systems Notes: Constitutional: Negative for fever. HENT: Negative for sore throat. Eyes: Negative for visual changes. Cardiovascular: As per HPI. Respiratory: As per HPI. No cough or sputum production. Gastrointestinal: Negative for abdominal pain, vomiting or diarrhea. Genitourinary: Negative for dysuria. Musculoskeletal: As per HPI. Skin: Negative for rash. Neurological: Negative for headaches, weakness or numbness. 10 point ROS negative except as marked above and in HPI. Physical Exam - Vital signs Vitals: Resp Pulse Ox 17 100 08/27/19 00:13 08/27/19 00:13 - Notes Notes: GENERAL: Well-developed well-nourished appearing in no acute distress. SKIN: Good turgor no rashes. HEAD: Normocephalic atraumatic. EYES: PERRLA. EOMI. Conjunctivae and sclerae clear. EARS: CANALS AND TMS CLEAR. NOSE: CLEAR. MOUTH: Moist mucosa. Good dentition. No stridor or edema. No drooling. NECK: Supple. No masses or thyromegaly. No adenopathy. Carotids 2+ without bruits. No JVD. BACK: Symmetrical without tenderness. CHEST: No chest wall tenderness. Respirations unlabored. Breath sounds clear and symmetrical. HEART: Regular rhythm. No murmur gallop or rub. ABDOMEN: Soft nontender without masses, organomegaly or rebound. Bowel sounds normally active. No bruits. GENITALIA: Deferred. EXTREMITIES: 1+ edema of lower leg and foot on the right. She has some bony tenderness over the lateral aspect of the right foot. There is no redness or palpable warmth. No calf tenderness. Cap refill less than 1.5 seconds. Dorsalis pedis and posterior tibial pulses 3+ and symmetrical. NEUROLOGICAL: GCS 15. Alert and oriented x3. Fluent speech. Cranial nerves II through XII intact. Sensorimotor and cerebellar normal. Normal tone. PSYCHIATRIC: Appropriate affect. Course - Re-evaluation Re-evalutation: 08/27/19 01:43 This lady has significant risk profile for coronary disease with a heart score of 5. She also has unilateral edema of the lower extremity with some recent mobilization of the right lower extremity raising the likelihood of concern for pulmonary embolus. Pain in back raises possibilty of dissection. Troponin and d-dimer are pending at this time. I have given the patient aspirin. We will give her 1 dose of fentanyl for relief of her pain and follow her EKG serially. CTA chest requested. 08/27/19 03:17 08/27/19 03:37 CTA has identified descending aortic dissection. Patient is still having 6/10 discomfort after initial dose of IV fentanyl. She is getting additional fentanyl currently. Her blood pressure is presently 174/94. IV esmolol drip initiated. I have contacted cardiac connection at [facility] and sent images to them and requested immediate transfer of this patient. 08/27/19 05:30 Patient has maxed out on esmolol drip. Per recommendation of [place] income tax consultant, Dr. Cameron, I have administered intermittent bolus doses of IV labetalol. Will continue to give patient titrated doses of fentanyl. She became nauseated at one point and also received a dose of IV Zofran which has control nausea. - Vital Signs Vital signs: Temp Pulse Resp BP Pulse Ox 98.7 F 76 19 129/78 H 100 08/27/19 05:04 08/27/19 05:17 08/27/19 05:17 08/27/19 05:17 08/27/19 05:17 - Laboratory Result Diagrams: 08/27/19 00:45 08/27/19 00:45 Laboratory results interpreted by me: 08/27/19 08/27/19 08/27/19 00:45 00:45 03:20 Hct 35.6 L MCV 79 L RDW 14.7 H D-Dimer 6.21 H Glucose 121 H ALT 38 H - EKG Interpretation by Me Additional EKG results interpreted by me: 08/27/19 01:42 Twelve-lead EKG from 00 21 hours is reviewed by me contemporaneously showing sinus bradycardia at a rate of 58 with a QRS axis of 2 degrees, normal intervals and nonspecific T wave changes without ST shift. Critical Care Note - Critical Care Note Total time excluding time spent on procedures (mins): 180 - Aortic dissection involving descending aorta identified. IV esmolol drip initiated. Discharge - Discharge Clinical Impression: Thoracic aortic dissection Disposition: [facility] Referrals: ANNALEE MENDEZ MD [Primary Care Provider] - Follow up as needed
[2019-08-27 01:44] LABS: CREATINE KINASE MB 1.76 ng/mL (<4.55); TROPONIN I 0.015 ng/mL
[2019-08-27] MEDS ORDERED: ESMOLOL HCL/SOD CL 2,500 MG/250 ML RTUINJ IV PRN (03:15)
--- NOTE | 2019-08-27 03:18 | RADIOLOGY REPORT (SQ) ---
CLINICAL HISTORY: CP and elevated d-dimer COMPARISON: Soft tissue neck from 06/27/2019. 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 MIPS reconstructions were generated. This exam was performed according to our departmental dose-optimization program, which includes automated exposure control, adjustment of the mA and/or kV according to patient size and/or use of iterative reconstruction technique. MIP images were generated. FINDINGS: The mid ascending thoracic aorta measures 4 cm. There is an intramural hematoma involving the proximal and mid descending thoracic aorta. This extends into a dissection involving the distal descending thoracic aorta as well as the abdominal aorta. Pulmonary arteries are adequately opacified without acute or chronic filling defects. The heart is enlarged. There is no pericardial effusion. Intrathoracic lymph nodes are not enlarged. There is no pleural effusion, pleural thickening or pneumothorax. Central airways are patent. There is a 3 mm left lower lobe pulmonary nodule laterally. In the upper abdomen, cholecystectomy was performed. There is a fatty lesion involving the medial right kidney measuring 5.4 cm. There is a surgical clip within the lesion. There are no acute osseous findings. No suspicious bony lesions. IMPRESSION: Large new intramural hematoma involving the distal aortic arch and ascending aorta with extension into fracture dissection involving the distal descending aorta and upper abdominal aorta. The graft cardiomegaly with no pulmonary embolus. Indeterminate fatty left renal lesion. 3.0 mm solid pulmonary nodule. No routine follow-up imaging is recommended. These guidelines do not apply to immunocompromised patients and patients with cancer. Follow up in patients with significant comorbidities as clinically warranted. For lung cancer screening, adhere to Lung-RADS guidelines. Reference: Radiology. 2017; 284(1):228-43.
[2019-08-27] MEDS ORDERED: FENTANYL CITRATE INJ/PF 100 MCG/2 ML AMPUL IV PRN (03:36)
[2019-08-27 03:44] LABS: INTERNATIONAL RATION (INR) 0.92; PROTHROMBIN TIME 12.4 SEC (11.4-15.4)
[2019-08-27 03:45] LABS: PARTIAL THROMBOPLASTIN TIME 29.6 SEC (23.5-35.8)
[2019-08-27 04:02] LABS: D-DIMER 6.21 ug/mL (0.00-0.50)
[2019-08-27] MEDS ORDERED: LABETALOL HCL INJ 20 MG/4 ML DISP.SYRIN IV ONE ×2 (04:56→05:28)
[2019-08-27 05:18] VITALS: BP 129/78
--- NOTE | 2019-08-27 22:03 | EKG REPORT ---
SEVERITY:- BORDERLINE ECG - SINUS RHYTHM BORDERLINE T ABNORMALITIES, DIFFUSE LEADS : Confirmed by: Mary Ott 27-Aug-2019 22:02:24
== END 2019-08-27 05:44 | disposition short-term general hospital (02) ==
LOC: ER 00:08
DX: I71.01 Dissection of thoracic aorta (principal); R14.2 Eructation; R11.0 Nausea; R00.1 Bradycardia, unspecified; R07.9 Chest pain, unspecified; R60.0 Localized edema; I10 Essential (primary) hypertension; J45.909 Unspecified asthma, uncomplicated; Z79.899 Other long term (current) drug therapy; Z88.0 Allergy status to penicillin; Z82.49 Family history of ischemic heart disease and other diseases of the circulatory system
CPT/HCPCS: 93005; 96376; 99291; 99292; 96374; 96375; 36415; 82553; 82550; 85025; 85610; 85730; 80053; 84484; 85379; 71045; 71275; 93010; J3010; J3490 ×2; J2405

== ENCOUNTER 2020-03-17 14:50 | Emergency (ER) | payer MEDICAID ==
[2020-03-17] MEDS ORDERED: METHYLPREDNISOLONE INJ 125 MG/2 ML SDV IV ONE (15:11)
[2020-03-17] MEDS ORDERED: IPRATROPIUM/ALBUTEROL 0.5-2.5 MG/3 ML AMPUL NEB ONE (15:11)
--- NOTE | 2020-03-17 15:15 | ER Document Report ---
ED Medical Screen (RME) - General Chief Complaint: Chest Pain Stated Complaint: CHEST PAIN Time Seen by Provider: 03/17/20 15:03 Primary Care Provider: ANNALEE MENDEZ MD [Primary Care Provider] - Follow up as needed Notes: Patient is a 64-year-old female with a history of asthma who presents the emergency department with a chief complaint chest pain and shortness of breath. Patient states that the chest pain started back 2 days ago after having an argument with her daughter. Patient states that she also has a history of asthma and states that she feels like she is wheezing. Denies any contact with anybody who has tested positive for COVID-19. Exam: Inspiratory and expiratory wheezes noted throughout all lung murguia. We will give the patient duo nebs and Solu-Medrol. I have greeted and performed a rapid initial assessment of this patient. A comprehensive ED assessment and evaluation of the patient, analysis of test results and completion of medical decision making process will be conducted by an additional ED providers. TRAVEL OUTSIDE OF THE [place] IN LAST 30 DAYS: No - Related Data Allergies/Adverse Reactions: Penicillins Allergy (Mild, Verified 07/02/19 15:01) rash Home Medications: Lisinopril, Aspirin, Symbicort Past Medical History - Social History Frequency of alcohol use: Occasional Drug Abuse: None - Past Medical History Cardiac Medical History: Reports: Hx Hypercholesterolemia, Hx Hypertension - medicated Denies: Hx Heart Attack Pulmonary Medical History: Reports: Hx Asthma Neurological Medical History: Reports: Hx Migraine. Denies: Hx Seizures Renal/ Medical History: Reports: Hx Kidney Stones. Denies: Hx Peritoneal Dialysis GI Medical History: Denies: Hx Hiatal Hernia, Hx Ulcer Musculoskeltal Medical History: Reports Hx Arthritis, Reports Hx Musculoskeletal Deformity, Reports Hx Musculoskeletal Trauma Psychiatric Medical History: Reports: Hx Depression - ANXIETY Infectious Medical History: Past Surgical History: Reports: Hx Cholecystectomy, Hx Kidney (Renal Surgery) - stent, tumor removed, Hx Orthopedic Surgery - Foot surgery to right great toe. Denies: Hx Hysterectomy, Hx Mastectomy, Hx Nose Surgery, Hx Open Heart Surgery, Hx Pacemaker - Immunizations Hx Diphtheria, Pertussis, Tetanus Vaccination: No Physical Exam - Vital signs Vitals: Temp Pulse Resp BP Pulse Ox 98.8 F 95 20 154/109 H 99 03/17/20 15:03 03/17/20 15:03 03/17/20 15:03 03/17/20 15:03 03/17/20 15:03 Course - Vital Signs Vital signs: Temp Pulse Resp BP Pulse Ox 98.8 F 95 20 154/109 H 99 03/17/20 15:03 03/17/20 15:03 03/17/20 15:03 03/17/20 15:03 03/17/20 15:03 Doctor's Discharge - Discharge Referrals: ANNALEE MENDEZ MD [Primary Care Provider] - Follow up as needed
--- NOTE | 2020-03-17 15:42 | RADIOLOGY REPORT (SQ) ---
EXAM DESCRIPTION: CHEST SINGLE VIEW IMAGES COMPLETED DATE/TIME: 03/17/2020 3:35 pm REASON FOR STUDY: chest pain/shortness of breath COMPARISON: 08/27/2019 EXAM PARAMETERS: NUMBER OF VIEWS: One view. TECHNIQUE: Single frontal radiographic view of the chest acquired. RADIATION DOSE: NA LIMITATIONS: None. FINDINGS: LUNGS AND PLEURA: No opacities, masses or pneumothorax. No pleural effusion. MEDIASTINUM AND HILAR STRUCTURES: No masses. Contour normal. HEART AND VASCULAR STRUCTURES: Heart normal in size. Normal vasculature. BONES: No acute findings. HARDWARE: None in the chest. OTHER: No other significant finding. IMPRESSION: NO ACUTE RADIOGRAPHIC FINDING IN THE CHEST. TECHNICAL DOCUMENTATION: JOB ID: [id number] 2010 [employer]- All Rights Reserved Reading location - IP/workstation name: [email or web address]
[2020-03-17 16:47] LABS: ABSOLUTE EOSINOPHILS # (AUTO) 0.3 10^3/uL (0.0-0.6); ABSOLUTE LYMPHOCYTES (AUTO) 2.3 10^3/uL (0.5-4.7); ABSOLUTE MONOCYTES (AUTO) 0.3 10^3/uL (0.1-1.4); ABSOLUTE NEUT (AUTO) 3.5 10^3/uL (1.7-8.2); BASOPHILS % (AUTO) 0.5 % (0-2); EOSINOPHILS % (AUTO) 5.3 % (0-6); HEMATOCRIT 36.6 % (36.0-47.0); LYMPHOCYTES % (AUTO) 35.6 % (13-45); MEAN CORPUSCULAR HEMOGLOBIN 27.1 pg (27.0-33.4); MEAN CORPUSCULAR HGB CONC 35.4 g/dL (32.0-36.0); MEAN CORPUSCULAR VOLUME 77 fl (80-97); MONOCYTES % (AUTO) 5.1 % (3-13); PLATELET COUNT 199 10^3/uL (150-450); RED BLOOD COUNT 4.78 10^6/uL (3.72-5.28); RED CELL DISTRIBUTION WIDTH 15.9 % (11.5-14.0); SEGMENTED NEUTROPHILS % (AUTO) 53.5 % (42-78); TOTAL CELLS COUNTED % (AUTO) 100 %; WHITE BLOOD COUNT 6.5 10^3/uL (4.0-10.5)
--- NOTE | 2020-03-17 18:04 | ER Document Report ---
ED Cardiac - General Chief Complaint: Chest Pain Stated Complaint: CHEST PAIN Time Seen by Provider: 03/17/20 15:03 Primary Care Provider: ANNALEE MENDEZ MD [Primary Care Provider] - Follow up as needed Mode of Arrival: Ambulatory Information source: Patient Notes: 03/17/20 15:04 - ED Nursing Note by APRILADRIÁN [facility] Num: [id number] : 1955 Patient Age: 64 Patient presents to ER, A&Ox3, with concern for shortness of breath, wheezing, and chest pain. Reports she has a history of asthma, stating "I need a breathing treatment". Reports her chest pain began today following argument with her daughter. Reports RUE feels abnormal. Breaths even and unlabored. Speaking in clear and complete sentences. NAD noted. Ambulates with steady gait. ED Medical Screen (Place Notes) - General Chief Complaint: Chest Pain Stated Complaint: CHEST PAIN Time Seen by Provider: 03/17/20 15:03 Primary Care Provider: ANNALEE MENDEZ MD [Primary Care Provider] - Follow up as needed Notes: Patient is a 64-year-old female with a history of asthma who presents the e mergency department with a chief complaint chest pain and shortness of breath. Patient states that the chest pain started back 2 days ago after having an argument with her daughter. Patient states that she also has a history of asthma and states that she feels like she is wheezing. Denies any contact with anybody who has tested positive for COVID-19. Exam: Inspiratory and expiratory wheezes noted throughout all lung murguia. We will give the patient duo nebs and Solu-Medrol. MY NOTES TODAY 64-year-old black female arrives with chief complaint of having right arm pain and asthma and increased blood pressure 182 systolic with tachycardia around 120. Patient reports she started having a chest pain 48 hours ago after becoming excited with an argument with her daughter. She also reports that she had her lisinopril increased from 20-[address] Mendez as well as placing her on metoprolol. Patient reports she was on atenolol when she was in [place] after her heart attack in August this year. She reports that worked well on her symptoms. TRAVEL OUTSIDE OF THE [place] IN LAST 30 DAYS: No - HPI Patient complains to provider of: Chest pain, Shortness of breath - Related Data Allergies/Adverse Reactions: Penicillins Allergy (Mild, Verified 07/02/19 15:01) rash Home Medications: Lisinopril, Aspirin, Symbicort Past Medical History - General Information source: Patient - Social History Smoking Status: Never Smoker Cigarette use (# per day): No Chew tobacco use (# tins/day): No Smoking Education Provided: No Frequency of alcohol use: Occasional Drug Abuse: None Lives with: Family Family History: Reviewed & Not Pertinent, Arthritis, CVA, Hyperlipidemia, Hypertension, Other. denies: CAD Patient has suicidal ideation: No Patient has homicidal ideation: No - Past Medical History Cardiac Medical History: Reports: Hx Hypercholesterolemia, Hx Hypertension - medicated Denies: Hx Heart Attack Pulmonary Medical History: Reports: Hx Asthma Neurological Medical History: Reports: Hx Migraine. Denies: Hx Seizures Renal/ Medical History: Reports: Hx Kidney Stones. Denies: Hx Peritoneal Dialysis GI Medical History: Denies: Hx Hiatal Hernia, Hx Ulcer Musculoskeletal Medical History: Reports Hx Arthritis, Reports Hx Musculoskeletal Deformity, Reports Hx Musculoskeletal Trauma Psychiatric Medical History: Reports: Hx Depression - ANXIETY Infectious Medical History: Past Surgical History: Reports: Hx Cholecystectomy, Hx Kidney (Renal Surgery) - stent, tumor removed, Hx Orthopedic Surgery - Foot surgery to right great toe. Denies: Hx Hysterectomy, Hx Mastectomy, Hx Nose Surgery, Hx Open Heart Surgery, Hx Pacemaker - Immunizations Hx Diphtheria, Pertussis, Tetanus Vaccination: No Review of Systems - Review of Systems Constitutional: No symptoms reported, Weakness EENT: No symptoms reported Cardiovascular: See HPI, Chest pain, Dizziness, Lightheaded Respiratory: See HPI, Short of breath Gastrointestinal: No symptoms reported Genitourinary: No symptoms reported Female Genitourinary: No symptoms reported Musculoskeletal: No symptoms reported Skin: No symptoms reported Hematologic/Lymphatic: No symptoms reported Neurological/Psychological: No symptoms reported Physical Exam - Vital signs Vitals: Temp Pulse Resp BP Pulse Ox 98.8 F 95 20 154/109 H 99 03/17/20 15:03 03/17/20 15:03 03/17/20 15:03 03/17/20 15:03 03/17/20 15:03 Interpretation: Hypertensive, Tachycardic - General General appearance: Appears well, Alert - HEENT Head: Normocephalic, Atraumatic Eyes: Normal Pupils: PERRL Nasal: Normal Mouth/Lips: Normal Mucous membranes: Normal Pharynx: Normal Neck: Normal - Respiratory Respiratory status: No respiratory distress Chest status: Nontender Breath sounds: Normal Chest palpation: Normal - Cardiovascular Rhythm: Regular Heart sounds: Normal auscultation Murmur: No - Abdominal Inspection: Normal Distension: No distension Bowel sounds: Normal Tenderness: Nontender Organomegaly: No organomegaly - Rectal Hemorrhoids: Other - deferred - Genitourinary Bimanuel exam: Other - deferred - Back Back: Normal - Extremities General upper extremity: Normal inspection General lower extremity: Normal inspection - Neurological Neuro grossly intact: Yes Cognition: Normal Orientation: AAOx4 [place] Coma Scale Eye Opening: Spontaneous [place] Coma Scale Verbal: Oriented [place] Coma Scale Motor: Obeys Commands Raquel Coma Scale Total: 15 Speech: Normal Motor strength normal: LUE, RUE, LLE, RLE Sensory: Normal - Psychological Associated symptoms: Anxious - Skin Skin Temperature: Warm Skin Moisture: Dry Course - Vital Signs Vital signs: Temp Pulse Resp BP Pulse Ox 98.8 F 95 18 180/106 H 98 03/17/20 15:03 03/17/20 15:03 03/17/20 18:19 03/17/20 18:19 03/17/20 18:19 - Laboratory Result Diagrams: 03/17/20 16:32 03/17/20 16:32 Laboratory results interpreted by me: 03/17/20 03/17/20 03/17/20 16:32 16:32 16:32 MCV 77 L RDW 15.9 H Potassium 3.5 L NT-Pro-B Natriuret Pep 192 H - Diagnostic Test Radiology reviewed: Reports reviewed - nad per rad - EKG Interpretation by Me EKG shows normal: Sinus rhythm Rate: Tachycardia Rhythm: NSR - Heart rate 102 with sinus tachycardia and multiformed ventricular PVCs and no ST elevation no ST depression no T wave elevation no T wave depression. And this was read by me Critical Care Note - Critical Care Note Comments: Patient's heart rate around 85 and blood pressure 171/106 after labetalol. Patient feels much improved after steroids. She reports she does need a hand- held nebulizer. Discharge - Discharge Clinical Impression: Tachycardia RAD (reactive airway disease) Qualifiers: Asthma severity: mild Asthma persistence: intermittent Asthma complication type: with acute exacerbation Qualified Code(s): J45.21 - Mild intermittent asthma with (acute) exacerbation Hypertension Qualifiers: Hypertension type: unspecified Qualified Code(s): I10 - Essential (primary) hypertension Condition: Good Disposition: HOME, SELF-CARE Admitting Provider: Trena Additional Instructions: Follow-up with Dr. Mendez return to ER as needed take medicines as directed and use inhaler only if very severe asthma attack. Prescriptions: Prednisone [Deltasone 20 mg Tablet] 1 tab PO DAILY 5 Days #5 tablet Albuterol Sulfate [Proair HFA Inhalation Aerosol 8.5 gm MDI] 2 puff IH Q4H PRN #1 mdi PRN Reason: Atenolol/Chlorthalidone [Tenoretic 50 Tablet] 0.5 each PO HSP PRN #15 tablet PRN Reason: Referrals: ANNALEE MENDEZ MD [Primary Care Provider] - Follow up as needed
[2020-03-17] MEDS ORDERED: LORAZEPAM INJ 2 MG/1 ML VIAL IV ONE (18:12)
[2020-03-17] MEDS ORDERED: LABETALOL HCL INJ 20 MG/4 ML DISP.SYRIN IV ONE (18:13)
[2020-03-17 18:30] LABS: ALKALINE PHOSPHATASE 115 U/L (38-126); ANION GAP 8 (5-19); ASPARTATE AMINO TRANSFERASE 30 U/L (14-36); BILIRUBIN,DIRECT 0.4 mg/dL (0.0-0.4); BILIRUBIN,TOTAL 0.6 mg/dL (0.2-1.3); BLOOD UREA NITROGEN 12 mg/dL (7-20); CALCIUM 9.2 mg/dL (8.4-10.2); CARBON DIOXIDE 27 mmol/L (22-30); CHLORIDE 104 mmol/L (98-107); GLUCOSE 86 mg/dL (75-110); POTASSIUM 3.5 mmol/L (3.6-5.0); TOTAL PROTEIN 6.9 g/dL (6.3-8.2)
[2020-03-17 19:04] VITALS: BP 162/114
--- NOTE | 2020-03-19 02:45 | EKG REPORT ---
SEVERITY:- ABNORMAL ECG - SINUS TACHYCARDIA MULTIFORM VENTRICULAR PREMATURE COMPLEXES PAC BORDERLINE T ABNORMALITIES, ANTERIOR LEADS : Confirmed by: Jimmy Suarez MD 19-Mar-2020 02:45:07
== END 2020-03-17 19:06 | disposition home or self-care (01) ==
LOC: ER 14:50
DX: J45.21 Mild intermittent asthma with (acute) exacerbation (principal); I10 Essential (primary) hypertension; R07.9 Chest pain, unspecified; R06.02 Shortness of breath; E78.00 Pure hypercholesterolemia, unspecified; Z88.0 Allergy status to penicillin; Z87.442 Personal history of urinary calculi; Z90.49 Acquired absence of other specified parts of digestive tract
CPT/HCPCS: 93005; 94640; 99285; 96374; 96375; 36415; 85025; 80053; 84484; 83880; 71045; 93010; J3490; J2930; J2060

== ENCOUNTER 2020-03-22 16:36 | Emergency (ER) | payer MEDICAID ==
[2020-03-22] MEDS ORDERED: ASPIRIN 81 MG TABLET, CHEWABLE PO ONE (17:10)
--- NOTE | 2020-03-22 17:12 | ER Document Report ---
ED Medical Screen (RME) - General Chief Complaint: Chest Pain Stated Complaint: ARM PAIN/CHEST PAIN Time Seen by Provider: 03/22/20 17:05 Primary Care Provider: ANNALEE MENDEZ MD [Primary Care Provider] - Follow up as needed Notes: HPI; 62-year-old female presents emergency room complaining of persistent worsening right arm pain that radiates into the right side and midsternal area of her chest. Describes it as a sharp pain. States was seen here on Thursday was discharged home on prednisone and Tenoretic for her blood pressure. States she is not improving. Taking ibuprofen without relief. Denies nausea, vomiting, no diaphoresis. PE: Alert and oriented x3. Mild distress noted. Lungs: Clear to auscultation without rales, rhonchi, wheezes. Heart with occasional PVCs without murmurs, rubs, gallops. Chest pain is nonreproducible. I have greeted and performed a rapid initial assessment of this patient. A comprehensive ED assessment and evaluation of the patient, analysis of test results and completion of the medical decision making process will be conducted by additional ED providers. I have specifically instructed the patient or family members with the patient to immediately return to any nursing staff should anything change in the patient's condition or with their chief complaint. TRAVEL OUTSIDE OF THE [place] IN LAST 30 DAYS: No - Related Data Allergies/Adverse Reactions: Penicillins Allergy (Mild, Verified 07/02/19 15:01) rash Past Medical History - Social History Frequency of alcohol use: Rare Drug Abuse: None - Past Medical History Cardiac Medical History: Reports: Hx Hypercholesterolemia, Hx Hypertension - medicated Denies: Hx Heart Attack Pulmonary Medical History: Reports: Hx Asthma Neurological Medical History: Reports: Hx Migraine. Denies: Hx Seizures Renal/ Medical History: Reports: Hx Kidney Stones. Denies: Hx Peritoneal Dialysis GI Medical History: Denies: Hx Hiatal Hernia, Hx Ulcer Musculoskeltal Medical History: Reports Hx Arthritis, Reports Hx Musculoskeletal Deformity, Reports Hx Musculoskeletal Trauma Psychiatric Medical History: Reports: Hx Depression - ANXIETY Infectious Medical History: Past Surgical History: Reports: Hx Cholecystectomy, Hx Kidney (Renal Surgery) - stent, tumor removed, Hx Orthopedic Surgery - Foot surgery to right great toe. Denies: Hx Hysterectomy, Hx Mastectomy, Hx Nose Surgery, Hx Open Heart Surgery, Hx Pacemaker - Immunizations Hx Diphtheria, Pertussis, Tetanus Vaccination: No Physical Exam - Vital signs Vitals: Temp Pulse Resp BP Pulse Ox 98.2 F 80 16 164/101 H 100 03/22/20 16:45 03/22/20 16:45 03/22/20 16:45 03/22/20 16:45 03/22/20 16:45 Course - Vital Signs Vital signs: Temp Pulse Resp BP Pulse Ox 98.2 F 80 16 164/101 H 100 03/22/20 16:45 03/22/20 16:45 03/22/20 16:45 03/22/20 16:45 03/22/20 16:45 Doctor's Discharge - Discharge Referrals: ANNALEE MENDEZ MD [Primary Care Provider] - Follow up as needed
--- NOTE | 2020-03-22 17:48 | RADIOLOGY REPORT (SQ) ---
EXAM DESCRIPTION: CHEST 2 VIEWS IMAGES COMPLETED DATE/TIME: 03/22/2020 4:28 pm REASON FOR STUDY: chest pain COMPARISON: 03/17/2020 EXAM PARAMETERS: NUMBER OF VIEWS: two views TECHNIQUE: Digital Frontal and Lateral radiographic views of the chest acquired. RADIATION DOSE: NA LIMITATIONS: none FINDINGS: LUNGS AND PLEURA: No opacities, masses or pneumothorax. No pleural effusion. MEDIASTINUM AND HILAR STRUCTURES: No masses or contour abnormalities. HEART AND VASCULAR STRUCTURES: Heart normal size. No evidence for failure. BONES: No acute findings. HARDWARE: None in the chest. OTHER: No other significant finding. IMPRESSION: NO ACUTE RADIOGRAPHIC FINDING IN THE CHEST. TECHNICAL DOCUMENTATION: JOB ID: [id number] 2010 [employer]- All Rights Reserved Reading location - IP/workstation name: [email or web address]
[2020-03-22 18:04] LABS: ABSOLUTE BASOPHILS # (AUTO) 0.1 10^3/uL (0.0-0.2); ABSOLUTE EOSINOPHILS # (AUTO) 0.1 10^3/uL (0.0-0.6); ABSOLUTE LYMPHOCYTES (AUTO) 1.5 10^3/uL (0.5-4.7); ABSOLUTE MONOCYTES (AUTO) 0.2 10^3/uL (0.1-1.4); ABSOLUTE NEUT (AUTO) 5.4 10^3/uL (1.7-8.2); BASOPHILS % (AUTO) 0.8 % (0-2); EOSINOPHILS % (AUTO) 0.7 % (0-6); HEMATOCRIT 38.9 % (36.0-47.0); HEMOGLOBIN 13.5 g/dL (12.0-15.5); LYMPHOCYTES % (AUTO) 21.1 % (13-45); MEAN CORPUSCULAR HEMOGLOBIN 26.6 pg (27.0-33.4); MEAN CORPUSCULAR HGB CONC 34.8 g/dL (32.0-36.0); MEAN CORPUSCULAR VOLUME 77 fl (80-97); MONOCYTES % (AUTO) 2.5 % (3-13); PLATELET COUNT 287 10^3/uL (150-450); RED BLOOD COUNT 5.09 10^6/uL (3.72-5.28); RED CELL DISTRIBUTION WIDTH 15.7 % (11.5-14.0); SEGMENTED NEUTROPHILS % (AUTO) 74.9 % (42-78); TOTAL CELLS COUNTED % (AUTO) 100 %; WHITE BLOOD COUNT 7.2 10^3/uL (4.0-10.5)
[2020-03-22 18:21] LABS: ALBUMIN 4.4 g/dL (3.5-5.0); ALKALINE PHOSPHATASE 118 U/L (38-126); ANION GAP 10 (5-19); ASPARTATE AMINO TRANSFERASE 30 U/L (14-36); BILIRUBIN,DIRECT 0.4 mg/dL (0.0-0.4); BILIRUBIN,TOTAL 0.4 mg/dL (0.2-1.3); BLOOD UREA NITROGEN 20 mg/dL (7-20); CARBON DIOXIDE 31 mmol/L (22-30); CHLORIDE 98 mmol/L (98-107); CREATINE KINASE 109 U/L (30-135); GLUCOSE 128 mg/dL (75-110); POTASSIUM 3.9 mmol/L (3.6-5.0); TOTAL PROTEIN 7.6 g/dL (6.3-8.2)
--- NOTE | 2020-03-22 18:26 | EKG REPORT ---
SEVERITY:- ABNORMAL ECG - SINUS RHYTHM NONSPECIFIC T ABNORMALITIES, DIFFUSE LEADS : Confirmed by: Mary Ott 22-Mar-2020 18:25:39
[2020-03-22 18:33] LABS: CREATINE KINASE MB 1.29 ng/mL (<4.55); TROPONIN I < 0.012 ng/mL
--- NOTE | 2020-03-22 23:33 | ER Document Report ---
Doctor's Note Notes: 03/22/20 22:00 Was notified by triage nurse that patient would like to leave. Patient was counseled that she would need to sign out AGAINST MEDICAL ADVICE. The patient was counseled against the risks and benefits of leaving AGAINST MEDICAL ADVICE. Including but not limited to , worsening condition, chronic pain, cardiac dysfunction, respiratory dysfunction, loss of current lifestyle. Patient states she would wait a little while longer and would let us know if she decides to leave.
[2020-03-23 00:25] VITALS: BP 145/99
== END 2020-03-23 02:41 | disposition left against medical advice (07) ==
LOC: ER 16:36
DX: Z53.20 Procedure and treatment not carried out because of patient's decision for unspecified reasons (principal); R07.9 Chest pain, unspecified
CPT/HCPCS: 36415; 71046; 80053; 82550; 82553; 84484; 85025; 93005; 93010; 99285

== ENCOUNTER 2020-03-25 07:13 | Emergency (ER) | payer MEDICAID ==
[2020-03-25 08:35] LABS: ABSOLUTE BASOPHILS # (AUTO) 0.1 10^3/uL (0.0-0.2); ABSOLUTE EOSINOPHILS # (AUTO) 0.2 10^3/uL (0.0-0.6); ABSOLUTE MONOCYTES (AUTO) 0.4 10^3/uL (0.1-1.4); HEMOGLOBIN 12.8 g/dL (12.0-15.5); LYMPHOCYTES % (AUTO) 30.6 % (13-45); MEAN CORPUSCULAR HEMOGLOBIN 26.5 pg (27.0-33.4); TOTAL CELLS COUNTED % (AUTO) 100 %
[2020-03-25 08:41] LABS: ABSOLUTE NEUT (AUTO) 3.8 10^3/uL (1.7-8.2); BASOPHILS % (AUTO) 1.4 % (0-2); EOSINOPHILS % (AUTO) 2.8 % (0-6); MEAN CORPUSCULAR HGB CONC 35.6 g/dL (32.0-36.0); MEAN CORPUSCULAR VOLUME 75 fl (80-97); MONOCYTES % (AUTO) 6.4 % (3-13); PLATELET COUNT 282 10^3/uL (150-450); RED BLOOD COUNT 4.83 10^6/uL (3.72-5.28); RED CELL DISTRIBUTION WIDTH 15.1 % (11.5-14.0); SEGMENTED NEUTROPHILS % (AUTO) 58.8 % (42-78); WHITE BLOOD COUNT 6.5 10^3/uL (4.0-10.5)
--- NOTE | 2020-03-25 08:47 | RADIOLOGY REPORT (SQ) ---
EXAM DESCRIPTION: CHEST SINGLE VIEW IMAGES COMPLETED DATE/TIME: 03/25/2020 7:04 am REASON FOR STUDY: bed 6 chest pain/sob COMPARISON: 03/17/2020 EXAM PARAMETERS: NUMBER OF VIEWS: One view. TECHNIQUE: Single frontal radiographic view of the chest acquired. RADIATION DOSE: NA LIMITATIONS: None. FINDINGS: LUNGS AND PLEURA: No opacities, masses or pneumothorax. No pleural effusion. MEDIASTINUM AND HILAR STRUCTURES: No masses. Contour normal. HEART AND VASCULAR STRUCTURES: Heart normal in size. Normal vasculature. BONES: No acute findings. HARDWARE: None in the chest. OTHER: No other significant finding. IMPRESSION: NO ACUTE RADIOGRAPHIC FINDING IN THE CHEST. TECHNICAL DOCUMENTATION: JOB ID: [id number] 2010 [employer]- All Rights Reserved Reading location - IP/workstation name: [email or web address]
[2020-03-25 08:55] LABS: ALBUMIN 4.5 g/dL (3.5-5.0); ALKALINE PHOSPHATASE 130 U/L (38-126); ANION GAP 13 (5-19); ASPARTATE AMINO TRANSFERASE 27 U/L (14-36); BILIRUBIN,DIRECT 0.2 mg/dL (0.0-0.4); BILIRUBIN,TOTAL 0.5 mg/dL (0.2-1.3); BLOOD UREA NITROGEN 27 mg/dL (7-20); CARBON DIOXIDE 28 mmol/L (22-30); CHLORIDE 98 mmol/L (98-107); CREATINE KINASE 117 U/L (30-135); GLUCOSE 109 mg/dL (75-110); POTASSIUM 3.6 mmol/L (3.6-5.0); TOTAL PROTEIN 7.7 g/dL (6.3-8.2)
[2020-03-25 09:05] LABS: CREATINE KINASE MB 1.83 ng/mL (<4.55)
[2020-03-25 09:08] LABS: TROPONIN I < 0.012 ng/mL
[2020-03-25] MEDS ORDERED: DEXAMETHASONE SOD PHOS INJ 10 MG/1 ML VIAL IV ONE (09:41)
[2020-03-25 11:18] VITALS: BP 126/75
--- NOTE | 2020-03-25 12:15 | ER Document Report ---
Entered by JASPER MAGDALENO SCRIBE 03/25/20 0940 Acting as scribe for:EVA PAINTER MD ED General - General Chief Complaint: Chest Pain Stated Complaint: SOB/CHEST PAIN Primary Care Provider: ANNALEE MENDEZ MD [Primary Care Provider] - Follow up as needed Mode of Arrival: Ambulatory Information source: Patient Notes: This 64 year old female patient presents to the ED today with complaints of reproducible right-sided chest wall and back pain for the past x1 week, worse this morning. Patient states that she has been taking care of her grandson and has been lifting him often. Pain is exacerbated by movement. Denies shortness of breath or cough. TRAVEL OUTSIDE OF THE [place] IN LAST 30 DAYS: No - Related Data Allergies/Adverse Reactions: Penicillins Allergy (Mild, Verified 07/02/19 15:01) rash Past Medical History - General Information source: Patient, [facility] Records - Social History Smoking Status: Unknown if Ever Smoked Chew tobacco use (# tins/day): No Smoking Education Provided: No Frequency of alcohol use: None Drug Abuse: None Family History: Reviewed & Not Pertinent, Arthritis, CVA, Hyperlipidemia, Hypertension Patient has suicidal ideation: No Patient has homicidal ideation: No - Past Medical History Cardiac Medical History: Reports: Hx Hypercholesterolemia, Hx Hypertension - medicated Pulmonary Medical History: Reports: Hx Asthma Neurological Medical History: Reports: Hx Migraine Renal/ Medical History: Reports: Hx Kidney Stones GI Medical History: Musculoskeletal Medical History: Reports Hx Arthritis, Reports Hx Musculoskeletal Deformity, Reports Hx Musculoskeletal Trauma Psychiatric Medical History: Reports: Hx Anxiety, Hx Depression Infectious Medical History: Past Surgical History: Reports: Hx Cholecystectomy, Hx Kidney (Renal Surgery) - stent, tumor removed, Hx Orthopedic Surgery - Foot surgery to right great toe - Immunizations Hx Diphtheria, Pertussis, Tetanus Vaccination: No Review of Systems - Review of Systems Constitutional: No symptoms reported EENT: No symptoms reported Cardiovascular: See HPI, Chest pain - reproducible, chest wall Respiratory: No symptoms reported Gastrointestinal: No symptoms reported Genitourinary: No symptoms reported Female Genitourinary: No symptoms reported Musculoskeletal: See HPI, Back pain Skin: No symptoms reported Hematologic/Lymphatic: No symptoms reported Neurological/Psychological: No symptoms reported -: Yes All other systems reviewed and negative Physical Exam - Vital signs Vitals: Temp Pulse Resp BP Pulse Ox 97.8 F 79 20 144/82 H 97 03/25/20 07:17 03/25/20 07:17 03/25/20 07:17 03/25/20 07:17 03/25/20 07:17 - General General appearance: Alert In distress: None - HEENT Head: Normocephalic, Atraumatic Eyes: Normal Pupils: PERRL - Respiratory Respiratory status: No respiratory distress Chest status: Tender - Reproducible right-sided chest wall pain in the sternocostal junction Breath sounds: Normal Chest palpation: Normal - Cardiovascular Rhythm: Regular Heart sounds: Normal auscultation, S1 appreciated, S2 appreciated Murmur: No Friction rub: No Gallop: None auscultated - Abdominal Inspection: Normal Distension: No distension Bowel sounds: Normal Tenderness: Nontender - Abdomen soft Organomegaly: No organomegaly - Back Back: Tender - R suprascapular tenderness to palpation - Extremities General upper extremity: Normal inspection General lower extremity: Normal inspection. No: Edema - Neurological Neuro grossly intact: Yes Orientation: AAOx4 [place] Coma Scale Eye Opening: Spontaneous Raquel Coma Scale Verbal: Oriented Raquel Coma Scale Motor: Obeys Commands [place] Coma Scale Total: 15 - Psychological Associated symptoms: Normal affect, Normal mood - Skin Skin Temperature: Warm Skin Moisture: Dry Skin Color: Normal Course - Re-evaluation Re-evalutation: 03/25/20 12:08 Patient resting comfortably not showing any signs of distress at this time. 03/25/20 12:13 Patient improved after IV Decadron. Therefore patient will be discharged home for chest wall pain noncardiac in. Patient will be placed on a Medrol Dosepak for further management of her chest wall pain. - Vital Signs Vital signs: Temp Pulse Resp BP Pulse Ox 97.5 F 79 14 126/75 H 99 03/25/20 08:01 03/25/20 07:17 03/25/20 11:01 03/25/20 11:01 03/25/20 11:01 03/25/20 12:09 Vital signs are stable. - Laboratory Result Diagrams: 03/25/20 08:20 03/25/20 08:20 Laboratory results interpreted by me: 03/25/20 03/25/20 08:20 08:20 MCV 75 L MCH 26.5 L RDW 15.1 H BUN 27 H Alkaline Phosphatase 130 H 03/25/20 12:09 Laboratories essentially unremarkable a BUN of 27 and alk phos of 130 otherwise no real acute process. Patient has a low MCV of 75. 03/25/20 12:09 03/25/20 08:20 03/25/20 08:20 MCV 75 fl (80-97) L 03/25/20 08:20 MCH 26.5 pg (27.0-33.4) L 03/25/20 08:20 MCHC 35.6 g/dL (32.0-36.0) 03/25/20 08:20 RDW 15.1 % (11.5-14.0) H 03/25/20 08:20 Seg Neutrophils % 58.8 % (42-78) 03/25/20 08:20 Chloride 98 mmol/L (98-107) 03/25/20 08:20 Carbon Dioxide 28 mmol/L (22-30) 03/25/20 08:20 Anion Gap 13 (5-19) 03/25/20 08:20 Est GFR ( Amer) > 60 (>60) 03/25/20 08:20 Glucose 109 mg/dL (75-110) 03/25/20 08:20 Calcium 10.0 mg/dL (8.4-10.2) 03/25/20 08:20 Total Bilirubin 0.5 mg/dL (0.2-1.3) 03/25/20 08:20 AST 27 U/L (14-36) 03/25/20 08:20 Alkaline Phosphatase 130 U/L (38-126) H 03/25/20 08:20 Total Protein 7.7 g/dL (6.3-8.2) 03/25/20 08:20 Albumin 4.5 g/dL (3.5-5.0) 03/25/20 08:20 03/25/20 03/25/20 03/25/20 08:20 08:20 11:16 Creatine Kinase 117 CK-MB (CK-2) 1.83 Troponin I < 0.012 < 0.012 Troponin x2 flat across at 0.012. - Diagnostic Test Radiology reviewed: Image reviewed, Reports reviewed Radiology results interpreted by me: 03/25/20 12:10 Chest X-Ray 03/25/20 07:34 IMPRESSION: NO ACUTE RADIOGRAPHIC FINDING IN THE CHEST. Chest x-ray shows no acute process. - EKG Interpretation by Me Additional EKG results interpreted by me: 03/25/20 12:10 Twelve-lead EKG shows normal sinus rhythm rate of 73 PAC noted probable left atrial abnormality and borderline T wave abnormalities diffuse OH QRS ST and QT intervals within normal interval range. No acute ST-T wave elevation to suggest an SD or any depression to suggest ischemia. Normal axis Discharge - Discharge Clinical Impression: Anterior chest wall pain Condition: Stable Disposition: HOME, SELF-CARE Instructions: Anti-Inflammatory Medication ([facility]), Chest Wall Pain ([facility]) Prescriptions: Methylprednisolone [Medrol Dosepack (4 mg/Tab) 21 Tab/Dosepak] 4 mg PO ASDIR PRN #[id number] tab.ds.[id number] PRN Reason: Referrals: ANNALEE MENDEZ MD [Primary Care Provider] - Follow up as needed I personally performed the services described in the documentation, reviewed and edited the documentation which was dictated to the scribe in my presence, and it accurately records my words and actions.
--- NOTE | 2020-03-25 20:24 | EKG REPORT ---
SEVERITY:- BORDERLINE ECG - SINUS RHYTHM ATRIAL PREMATURE COMPLEX PROBABLE LEFT ATRIAL ABNORMALITY BORDERLINE T ABNORMALITIES, DIFFUSE LEADS : Confirmed by: Mary Ott 25-Mar-2020 20:24:14
== END 2020-03-25 13:15 | disposition home or self-care (01) ==
LOC: ER 07:13
DX: R07.89 Other chest pain (principal); R06.02 Shortness of breath; M54.9 Dorsalgia, unspecified; E78.00 Pure hypercholesterolemia, unspecified; I10 Essential (primary) hypertension; Z88.0 Allergy status to penicillin; Z87.442 Personal history of urinary calculi
CPT/HCPCS: 93005; 99285; 96374; 36415; 82553; 82550; 85025; 80053; 84484; 71045; 93010; J1100

== ENCOUNTER 2020-04-05 10:21 | Emergency (ER) | payer MEDICAID ==
[2020-04-05] MEDS ORDERED: IBUPROFEN 600 MG TABLET PO ONE (11:01)
--- NOTE | 2020-04-05 11:04 | ER Document Report ---
ED Hand/Wrist Injury - General Chief Complaint: Finger Injury Stated Complaint: RIGHT HAND PAIN Time Seen by Provider: 04/05/20 11:00 Primary Care Provider: [facility] [Provider Group] - Follow up as needed ANNALEE MENDEZ MD [Primary Care Provider] - Follow up as needed Mode of Arrival: Ambulatory Information source: Patient Notes: 64-year-old female presented to ED for complaint of pain to her right middle finger. She states she was picking up a mattress change landing yesterday when she smashed her middle finger between the frame and the bottom mattress. She states her pain is a 5 out of 5. Her vital signs weight did recheck and her blood pressure was 181/99 pulse was 72 O2 sat was 100%. She is alert oriented respirations regular nonlabored speaking in full sentences. She does have a history of high blood pressure cholecystectomy and kidney stones. She does occasionally drink does not smoke or use any drugs. TRAVEL OUTSIDE OF THE [place] IN LAST 30 DAYS: No - HPI Injury to: Middle finger Onset: Yesterday - Right Where: Home, Indoors Timing: Worse Quality of pain: Sharp Severity: Severe Pain Level: 5 Context: Swelling - Related Data Allergies/Adverse Reactions: Penicillins Allergy (Mild, Verified 04/05/20 10:55) rash Home Medications: Metoprolol Past Medical History - General Information source: Patient - Social History Smoking Status: Never Smoker Chew tobacco use (# tins/day): No Frequency of alcohol use: Occasional Drug Abuse: None Lives with: Family Family History: Reviewed & Not Pertinent, Arthritis, CVA, Hyperlipidemia, Hypertension Patient has homicidal ideation: No - Past Medical History Cardiac Medical History: Reports: Hx Hypercholesterolemia, Hx Hypertension - medicated Pulmonary Medical History: Reports: Hx Asthma EENT Medical History: Reports: None Neurological Medical History: Reports: Hx Migraine Endocrine Medical History: Reports: None Renal/ Medical History: Reports: Hx Kidney Stones Malignancy Medical History: Reports: None GI Medical History: Reports: None Musculoskeletal Medical History: Reports Hx Arthritis, Reports Hx Musculoskeletal Deformity, Reports Hx Musculoskeletal Trauma Skin Medical History: Reports None Psychiatric Medical History: Reports: Hx Anxiety, Hx Depression Traumatic Medical History: Reports: None Infectious Medical History: Reports: None Past Surgical History: Reports: Hx Cholecystectomy, Hx Kidney (Renal Surgery) - stent, tumor removed, Hx Orthopedic Surgery - Foot surgery to right great toe - Immunizations Hx Diphtheria, Pertussis, Tetanus Vaccination: No Review of Systems - Review of Systems Constitutional: No symptoms reported EENT: No symptoms reported Cardiovascular: No symptoms reported Respiratory: No symptoms reported Gastrointestinal: No symptoms reported Genitourinary: No symptoms reported Female Genitourinary: No symptoms reported Musculoskeletal: Other - Right middle finger pain swelling Skin: No symptoms reported Hematologic/Lymphatic: No symptoms reported Neurological/Psychological: No symptoms reported -: Yes All other systems reviewed and negative Physical Exam - Vital signs Vitals: Temp Pulse Resp BP Pulse Ox 98.2 F 91 18 152/100 H 96 04/05/20 10:42 04/05/20 10:42 04/05/20 10:42 04/05/20 10:42 04/05/20 10:42 Interpretation: Normal - General General appearance: Appears well, Alert - HEENT Head: Normocephalic, Atraumatic Eyes: Normal Pupils: PERRL - Respiratory Respiratory status: No respiratory distress Chest status: Nontender Breath sounds: Normal Chest palpation: Normal - Cardiovascular Rhythm: Regular Heart sounds: Normal auscultation Murmur: No - Abdominal Inspection: Normal Distension: No distension Bowel sounds: Normal Tenderness: Nontender Organomegaly: No organomegaly - Back Back: Normal, Nontender - Extremities General upper extremity: Normal ROM, Normal temperature General lower extremity: Normal inspection, Nontender, Normal color, Normal ROM, Normal temperature, Normal weight bearing. No: Kvng's sign Hand: Tender, No evidence of human bite, No evidence of FB, Swelling - Neurological Neuro grossly intact: Yes Cognition: Normal Orientation: AAOx4 Raquel Coma Scale Eye Opening: Spontaneous [place] Coma Scale Verbal: Oriented Raquel Coma Scale Motor: Obeys Commands Raquel Coma Scale Total: 15 Speech: Normal Motor strength normal: LUE, RUE, LLE, RLE Sensory: Normal - Psychological Associated symptoms: Normal affect, Normal mood - Skin Skin Temperature: Warm Skin Moisture: Dry Skin Color: Normal Course - Re-evaluation Re-evalutation: 04/05/20 12:50 Discussed x-ray results with patient written report of x-ray results given to patient. There was no break fractures dislocations to the finger. Patient has full range of motion to the finger. There is minimal swelling to the finger. I have given her ice and that did decrease the swelling. I did give her instructions on elevation and ice to help with the discomfort. She verbalized understanding and agreement treatment plan patient was discharged home. - Vital Signs Vital signs: Temp Pulse Resp BP Pulse Ox 98.2 F 91 18 152/100 H 96 04/05/20 10:42 04/05/20 10:42 04/05/20 10:42 04/05/20 10:42 04/05/20 10:42 - Diagnostic Test Radiology reviewed: Image reviewed, Reports reviewed Discharge - Discharge Clinical Impression: Contusion of right middle finger Qualifiers: Encounter type: initial encounter Damage to nail status: without damage Qualified Code(s): S60.031A - Contusion of right middle finger without damage to nail, initial encounter Condition: Stable Disposition: HOME, SELF-CARE Additional Instructions: CONTUSION: Your injury has resulted in a contusion -- a crushing of the deep tissues. No injury to important structures was detected during the physician's exam. Contusions vary in the amount of pain they cause, and in the length of time required for healing. Typically, the area will become bruised, and will remain painful to touch for two or three weeks. However, most patients are back to wo rking and playing within a few days. After the initial period of rest and cold-packs, your symptoms (together with the doctor's recommendations) will determine how rapidly you can get back to full activity. Usually this means "do what feels okay, but don't do things that hurt." If re-examination was recommended, it's important to follow up as instructed. Call the doctor or return any time if pain increases, if swelling becomes severe, if you develop numbness or weakness in an injured extremity, or if any other alarming symptoms occur. USE OF TYLENOL (ACETAMINOPHEN): Acetaminophen may be taken for pain relief or fever control. It's much safer than aspirin, offering a wider range of "safe" dosages. It is safe during . Some brand names are Tylenol, Panadol, Datril, Anacin 3, Tempra, and Liquiprin. Acetaminophen can be repeated every four hours. The following are maximum recommended dosages: WEIGHT Dose Drops Elixir Chewable(80mg) (LBS.) drprs=droppers tsp=teaspoon 6 40 mg 0.4 ml (1/2) 6-11 80 mg 0.8 ml (full) tsp 1 tab 12-16 120 mg 1 1/2 drprs 3/4 tsp 1 1/2 tabs 17-23 160 mg 2 drprs 1 tsp 2 tabs 24-30 240 mg 3 drprs 1 1/2 tsp 3 tabs 30-35 320 mg 2 tsp 4 tabs 36-41 360 mg 2 1/4 tsp 4 1/2 tabs 42-47 400 mg 2 1/2 tsp 5 tabs 48-53 480 mg 3 tsp 6 tabs 54-59 520 mg 3 1/4 tsp 6 1/2 tabs 60-64 560 mg 3 1/2 tsp 7 tabs 65-70 600 mg 3 3/4 tsp 7 1/2 tabs 71-76 640 mg 4 tsp 8 tabs 77-82 720 mg 4 1/2 tsp 9 tabs 83-88 800 mg 5 tsp 10 tabs >89 pounds or adults 650 mg to 900 mg Acetaminophen can be repeated every four hours. Maximum dose not to exceed 4000 mg a day. These maximum recommended dosages are slightly higher than the dosages written on the product container, but these dosages are very safe and below the toxic dosage for acetaminophen. ICE & ELEVATION: Apply ice packs frequently against the painful area. Many different schedules are recommended, such as "20 minutes on, 20 minutes off" or "one hour ice, two hours rest." If you need to work, you may need to go longer between ice treatments. You should plan to have the area ice packed AT LEAST one-fourth of the time. The ice should be applied over the wrap, tape, or splint, or over a layer of cloth -- not directly against the skin. Some ice bags have a built-in cloth and can be put directly on the skin. Your injured part should be elevated as much as possible over the next 48 hours. Try to keep the injury above the level of the heart. Avoid use of the injured area. Elevation and rest will decrease the swelling. USE OF [id number] IBUPROFEN: Ibuprofen (Advil, Nuprin, Medipren, Motrin IB) is a medication for fever and pain control. In addition, it has anti- inflammatory effects which may be beneficial, especially in the treatment of injuries. It's best to take ibuprofen with food. Persons with ulcer disease or allergy to aspirin should notify their physician of this before taking ibuprofen. Ibuprofen can be given every four to six hours, for a total of four doses daily. Age Pain or fever dose Antiinflammatory dose 6-8 yr 200 mg (1 tab) 200 mg (1 tab) 9-11 yr 200 mg (1 tab) 200-400 mg (1-2 tab) 11-14 yr 200-400 mg (1-2 tab) 400 mg (2 tab) 15-adult 400 mg (2 tab) 600 mg (3 tab) FOLLOW-UP CARE: If you have been referred to a physician for follow-up care, call the physicians office for an appointment as you were instructed or within the next two days. If you experience worsening or a significant change in your symptoms, notify the physician immediately or return to the Emergency Department at any time for re-evaluation. Forms: Elevated Blood Pressure, Return to Work Referrals: ANNALEE MENDEZ MD [Primary Care Provider] - Follow up as needed [facility] [Provider Group] - Follow up as needed
--- NOTE | 2020-04-05 11:48 | RADIOLOGY REPORT (SQ) ---
EXAM DESCRIPTION: FINGER RIGHT IMAGES COMPLETED DATE/TIME: 04/05/2020 11:22 am REASON FOR STUDY: right middle finger COMPARISON: None. NUMBER OF VIEWS: Three views. TECHNIQUE: AP, lateral, and oblique images acquired of the right third finger. LIMITATIONS: None. FINDINGS: MINERALIZATION: Normal. BONES: No acute fracture or dislocation. No worrisome bone lesions. Mild, diffuse degenerative cesar ges are present, most significantly affecting the thumb carpal metacarpal joint. SOFT TISSUES: No soft tissue swelling. No foreign body. OTHER: No other significant finding. IMPRESSION: NO RADIOGRAPHIC EVIDENCE OF ACUTE INJURY. COMMENT: SITE OF TRAUMA/COMPLAINT MARKED/STAMP COMPLETED: NO. TECHNICAL DOCUMENTATION: JOB ID: [id number] 2010 [employer]- All Rights Reserved Reading location - IP/workstation name: [email or web address]
[2020-04-05 13:23] VITALS: BP 170/81
== END 2020-04-05 12:50 | disposition home or self-care (01) ==
LOC: ER 10:21
DX: S60.031A Contusion of right middle finger without damage to nail, initial encounter (principal); W23.0XXA Caught, crushed, jammed, or pinched between moving objects, initial encounter; Y93.E9 Activity, other interior property and clothing maintenance; Y92.003 Bedroom of unspecified non-institutional (private) residence as the place of occurrence of the external cause; I10 Essential (primary) hypertension; J45.909 Unspecified asthma, uncomplicated; Z79.899 Other long term (current) drug therapy; Z88.0 Allergy status to penicillin
CPT/HCPCS: 99283; 73140; J3490

== ENCOUNTER 2020-05-03 12:33 | Emergency (ER) | payer MEDICAID ==
--- NOTE | 2020-05-03 12:38 | ER Document Report ---
ED Medical Screen (RME) - General Chief Complaint: Pain All Over Stated Complaint: CHILLS/HEADACHE/BODY ACHES Time Seen by Provider: 05/03/20 12:34 Primary Care Provider: ANNALEE MENDEZ MD [Primary Care Provider] - Follow up as needed Mode of Arrival: Ambulatory Information source: Patient Notes: 64-year-old female presents to ED for cough congestion chills body aches headache for 2 days. She states she went to her events administrative assistant and they sent her to the emergency for evaluation for fast heartbeat and electrolyte studies. She also has chills fevers body aches. We will get labs flu Covid chest x-ray EKG and electrolytes. Patient is alert and oriented answering questions appropriate. Heart rate is in the 80s at this time. I have greeted and performed a rapid initial assessment of this patient. A comprehensive ED assessment and evaluation of the patient, analysis of test results and completion of medical decision making process will be conducted by an additional ED providers. TRAVEL OUTSIDE OF THE [place] IN LAST 30 DAYS: No - Related Data Allergies/Adverse Reactions: Penicillins Allergy (Mild, Verified 05/03/20 12:38) rash Past Medical History - Past Medical History Cardiac Medical History: Reports: Hx Hypercholesterolemia, Hx Hypertension - medicated Pulmonary Medical History: Reports: Hx Asthma Neurological Medical History: Reports: Hx Migraine Renal/ Medical History: Reports: Hx Kidney Stones GI Medical History: Musculoskeltal Medical History: Reports Hx Arthritis, Reports Hx Musculoskeletal Deformity, Reports Hx Musculoskeletal Trauma Psychiatric Medical History: Reports: Hx Anxiety, Hx Depression Infectious Medical History: Past Surgical History: Reports: Hx Cholecystectomy, Hx Kidney (Renal Surgery) - stent, tumor removed, Hx Orthopedic Surgery - Foot surgery to right great toe - Immunizations Hx Diphtheria, Pertussis, Tetanus Vaccination: No Doctor's Discharge - Discharge Referrals: ANNALEE MENDEZ MD [Primary Care Provider] - Follow up as needed
--- NOTE | 2020-05-03 13:43 | RADIOLOGY REPORT (SQ) ---
EXAM DESCRIPTION: CHEST SINGLE VIEW IMAGES COMPLETED DATE/TIME: 05/03/2020 1:28 pm REASON FOR STUDY: irregular heart beat cough congestion COMPARISON: 03/25/2020 EXAM PARAMETERS: NUMBER OF VIEWS: One view. TECHNIQUE: Single frontal radiographic view of the chest acquired. RADIATION DOSE: NA LIMITATIONS: None. FINDINGS: LUNGS AND PLEURA: No opacities, masses or pneumothorax. No pleural effusion. MEDIASTINUM AND HILAR STRUCTURES: No masses. Contour normal. HEART AND VASCULAR STRUCTURES: Heart normal in size. Normal vasculature. BONES: No acute findings. HARDWARE: None in the chest. OTHER: No other significant finding. IMPRESSION: NO ACUTE RADIOGRAPHIC FINDING IN THE CHEST. TECHNICAL DOCUMENTATION: JOB ID: [id number] [employer]- All Rights Reserved Reading location - IP/workstation name: [email or web address]
[2020-05-03 13:48] LABS: ALBUMIN 4.3 g/dL (3.5-5.0); ALKALINE PHOSPHATASE 109 U/L (38-126); ANION GAP 12 (5-19); ASPARTATE AMINO TRANSFERASE 40 U/L (14-36); BILIRUBIN,DIRECT 0.3 mg/dL (0.0-0.4); BILIRUBIN,TOTAL 0.5 mg/dL (0.2-1.3); BLOOD UREA NITROGEN 9 mg/dL (7-20); CALCIUM 8.9 mg/dL (8.4-10.2); CARBON DIOXIDE 23 mmol/L (22-30); CHLORIDE 101 mmol/L (98-107); CREATINE KINASE 184 U/L (30-135); GLUCOSE 98 mg/dL (75-110); PHOSPHORUS 3.8 mg/dL (2.5-4.5); POTASSIUM 3.6 mmol/L (3.6-5.0); TOTAL PROTEIN 7.3 g/dL (6.3-8.2)
[2020-05-03 13:57] LABS: ABSOLUTE LYMPHOCYTES (AUTO) 0.8 10^3/uL (0.5-4.7); ABSOLUTE MONOCYTES (AUTO) 0.2 10^3/uL (0.1-1.4); ABSOLUTE NEUT (AUTO) 1.6 10^3/uL (1.7-8.2); BASOPHILS % (AUTO) 1.7 % (0-2); EOSINOPHILS % (AUTO) 0.4 % (0-6); HEMATOCRIT 35.6 % (36.0-47.0); HEMOGLOBIN 12.4 g/dL (12.0-15.5); LYMPHOCYTES % (AUTO) 31.2 % (13-45); MEAN CORPUSCULAR HEMOGLOBIN 26.8 pg (27.0-33.4); MEAN CORPUSCULAR VOLUME 77 fl (80-97); MONOCYTES % (AUTO) 6.7 % (3-13); RED BLOOD COUNT 4.65 10^6/uL (3.72-5.28); RED CELL DISTRIBUTION WIDTH 16.2 % (11.5-14.0); TOTAL CELLS COUNTED % (AUTO) 100 %; WHITE BLOOD COUNT 2.7 10^3/uL (4.0-10.5)
[2020-05-03 14:19] LABS: PLATELET COUNT 147 10^3/uL (150-450)
[2020-05-03] MEDS ORDERED: ASPIRIN 325 MG TABLET PO ONE (14:25)
[2020-05-03] MEDS ORDERED: METOPROLOL TARTRATE PF/INJ 5 MG/5 ML SDV IV ONE (14:25)
--- NOTE | 2020-05-03 14:26 | ER Document Report ---
ED General - General Chief Complaint: Pain All Over Stated Complaint: CHILLS/HEADACHE/BODY ACHES Time Seen by Provider: 05/03/20 12:34 Primary Care Provider: NOLA LLAMAS MD [ACTIVE STAFF] - Follow up in 3-5 days ANNALEE MENDEZ MD [Primary Care Provider] - Follow up as needed Mode of Arrival: Ambulatory Notes: 64-year-old lady with hypertension on multiple medications presents with several days of body aches and subjective fevers. She does not have chest pain or shortness of breath but has had some intermittent palpitations. She has hypertension. He has no known Covid exposures but thinks she might of had a questionable 1. She denies shortness of breath or chest pain today. She was seen in Dr. Haro's office had some PACs and was sent here for Covid rule out. She takes metoprolol. TRAVEL OUTSIDE OF THE [place] IN LAST 30 DAYS: No - Related Data Allergies/Adverse Reactions: Penicillins Allergy (Mild, Verified 05/03/20 12:38) rash Home Medications: cardiac meds. edarbi Past Medical History - General Information source: Patient - Social History Smoking Status: Former Smoker Chew tobacco use (# tins/day): No Frequency of alcohol use: Occasional Drug Abuse: None Family History: Reviewed & Not Pertinent, Arthritis, CVA, Hyperlipidemia, Hypertension Patient has homicidal ideation: No - Past Medical History Cardiac Medical History: Reports: Hx Heart Attack, Hx Hypercholesterolemia, Hx Hypertension - medicated Pulmonary Medical History: Reports: Hx Asthma Neurological Medical History: Reports: Hx Migraine Renal/ Medical History: Reports: Hx Kidney Stones GI Medical History: Musculoskeletal Medical History: Reports Hx Arthritis, Reports Hx Musculoskeletal Deformity, Reports Hx Musculoskeletal Trauma Psychiatric Medical History: Reports: Hx Anxiety, Hx Depression Infectious Medical History: Past Surgical History: Reports: Hx Cholecystectomy, Hx Kidney (Renal Surgery) - stent, tumor removed, Hx Orthopedic Surgery - Foot surgery to right great toe - Immunizations Hx Diphtheria, Pertussis, Tetanus Vaccination: No Review of Systems - Review of Systems Notes: REVIEW OF SYSTEMS GEN: Denies fever, chills, weight loss ENT: Denies sore throat, nasal discharge, ear pain EYES: Denies blurry vision, eye pain, discharge CV: Palpitations RESP: Denies cough, shortness of breath, wheezing GI: Denies abdominal pain, nausea, vomiting, diarrhea MSK: [place]la SKIN: Denies rash, skin lesions LYMPH: Denies swollen glands/lymph nodes NEURO: Denies headache, focal weakness or numbness, dizziness PSYCH: Denies depression, suicidal or homicidal ideation PHYSICAL EXAMINATION General: No acute distress, well-nourished Head: Atraumatic, normocephalic ENT: Mouth normal, oropharynx moist, no exudates or tonsillar enlargement Eyes: Conjunctiva normal, pupils equal, lids normal Neck: No JVD, supple, no guarding CVS: Slightly tachycardic with slight ectopy Resp: No resp distress, equal and normal breath sounds bilaterally GI: Nondistended, soft, no tenderness to palpation, no rebound or guarding Ext: No deformities, no edema, normal range of motion in upper and lower ext Back: No CVA or midline TTP Skin: No rash, warm Lymphatic: No lymphadeopathy noted Neuro: Awake, alert. Face symmetric. GCS 15. Physical Exam - Vital signs Vitals: Temp Pulse Resp BP Pulse Ox 97.5 F 93 22 H 145/93 H 92 05/03/20 12:37 05/03/20 12:37 05/03/20 12:37 05/03/20 12:37 05/03/20 12:37 Course - Re-evaluation Re-evalutation: 05/03/20 16:26 Body aches with subjective fevers, normal vitals in the ED except for mild tachycardia and occasional PACs EKG shows PACs with no ischemia monitor shows intermittent PACs Covid test sent. Chest x-ray clear no signs of heart failure doubt ACS Patient was given magnesium for PACs as well as a dose of IV metoprolol which resulted in resolution of PACs and a heart rate of 85. Discussed her case with Namrata do not think anything Cardiologic is going on agrees with discharge. Patient is a Covid PUI will be discharged such. She does have some lab abno rmalities which would fit with a viral illness but none of which are critical enough for admission. I have discussed with the patient there likely diagnosis, aftercare plan, follow-up plans and my usual and customary return precautions. They verbalized understanding of this. 05/03/20 16:27 - Vital Signs Vital signs: Temp Pulse Resp BP Pulse Ox 97.5 F 93 11 L 144/92 H 97 05/03/20 12:38 05/03/20 12:37 05/03/20 15:10 05/03/20 15:10 05/03/20 15:10 - Laboratory Result Diagrams: 05/03/20 13:43 05/03/20 13:08 Laboratory results interpreted by me: 05/03/20 05/03/20 13:08 13:43 WBC 2.7 L Hct 35.6 L MCV 77 L MCH 26.8 L RDW 16.2 H Plt Count 147 L Absolute Neuts (auto) 1.6 L Sodium 135.5 L AST 40 H Creatine Kinase 184 H - Diagnostic Test Radiology reviewed: Image reviewed, Reports reviewed - EKG Interpretation by Me EKG shows normal: Sinus rhythm Rate: Tachycardia Rhythm: APC's - No ST elevation or depression When compared to previous EKG there are: Previous EKG unavailable Discharge - Discharge Clinical Impression: Palpitations, Premature atrial contractions Condition: Good Disposition: HOME, SELF-CARE Instructions: COVID-19 Guidance for Persons Under Investigation, Palpitations (Irregular or Rapid Heartrate) ([facility]) Additional Instructions: Please call Dr. Haro's office and be seen within the next couple of days. Please adhere to your normal medications. Please get plenty of rest as you have a Covid test pending and may be positive. Referrals: ANNALEE MENDEZ MD [Primary Care Provider] - Follow up as needed NOLA LLAMAS MD [ACTIVE STAFF] - Follow up in 3-5 days
[2020-05-03 15:22] VITALS: BP 144/92
--- NOTE | 2020-05-07 19:51 | EKG REPORT ---
SEVERITY:- ABNORMAL ECG - SINUS RHYTHM MULTIPLE ATRIAL PREMATURE COMPLEXES NONSPECIFIC T ABNORMALITIES, ANTERIOR LEADS : Confirmed by: Jimmy Suarez MD 07-May-2020 19:50:51
== END 2020-05-03 15:24 | disposition home or self-care (01) ==
LOC: ER 12:33
DX: R00.2 Palpitations (principal); I49.1 Atrial premature depolarization; M79.10 Myalgia, unspecified site; R51.9 Headache, unspecified; R50.9 Fever, unspecified; I10 Essential (primary) hypertension; E78.00 Pure hypercholesterolemia, unspecified; Z87.442 Personal history of urinary calculi; Z90.49 Acquired absence of other specified parts of digestive tract; Z88.0 Allergy status to penicillin; I25.2 Old myocardial infarction; Z20.828 Contact with and (suspected) exposure to other viral communicable diseases
CPT/HCPCS: 99284; 96374; 36415; 82550; 83735; 84100; 85025; 87635; 80053; 84484; 71045; J3490; C9803; 93005; 93010